=== PATIENT | male | born 1945 | race Caucasian/White ===

== ENCOUNTER 2017-03-22 06:27 | Day surgery (SDC) | payer OTHER ==
[2017-03-20 13:14] VITALS: BMI 23.6
[2017-03-22] MEDS ORDERED: LIDOCAINE HCL 0.5% EPINEPHRINE 1:200,000 50 ML VIAL IJ ONE ×4 (07:38→08:32)
[2017-03-22] MEDS ORDERED: LIDOCAINE HCL 1%, 10 MG/ML (20ML VIAL) ONE (07:38)
[2017-03-22] MEDS ORDERED: MINERAL OIL 25 ML OIL ONE (07:39)
[2017-03-22] MEDS ORDERED: BUPIVACAINE HCL/PF 0.5% (5MG/ML) 10 ML VIAL ONE (07:39)
[2017-03-22] MEDS ORDERED: BACITRACIN 15 GM TUBE TOPICAL OINTMENT ONE (07:39)
[2017-03-22] MEDS ORDERED: LIDOCAINE HCL/PF 2% SDV 5ML VIAL ONE (07:56)
[2017-03-22] MEDS ORDERED: PROPOFOL 20 ML ONE ×3 (07:57→10:07)
[2017-03-22] MEDS ORDERED: MIDAZOLAM HCL 2 MG/2 ML SINGLE DOSE VIAL ONE (07:57)
[2017-03-22] MEDS ORDERED: ceFAZolin SODIUM 1 GM VIAL IVPB ONE (08:17)
[2017-03-22] MEDS ORDERED: ONDANSETRON 4 MG/2 ML VIAL IVPUSH PRN (10:25)
[2017-03-22] MEDS ORDERED: oxyCODONE HCL 5 MG TABLET PO PRN (10:25)
[2017-03-22] MEDS ORDERED: ACETAMINOPHEN 325 MG TABLET (FP) PO PRN (10:25)
[2017-03-22] MEDS ORDERED: LACTATED RINGERS SOLUTION 1,000 ML IV SCH (10:30)
--- NOTE | 2017-03-22 10:50 | OP ---
Operative Note - Note: Operative Date: 03/22/17 Pre-Operative Diagnosis: Basal Cell Carcinomas of the Nasal Dorsum and Left Nasal Ala Operation: 1- Excision Large Basal Cell Carcinoma Nasal Dorsum and Closure with Full Thickness Skin Graft from Left Infra-Clavicular Region. 2- Excision Basal Cell Carcinoma Left Nasal Ala and Closure with Alar Rotation Flap. Post-Operative Diagnosis: Same as Pre-op Surgeon: Michael Baron Anesthesia: Fractional Specimens Removed: BAsal Cell Carcinoima Nasal Dorsum with Re-excision of Left LAteral edge after Frozen Section Report; Basal Cell Carcinoma Left Ala with Re- excision of Lateral Deep margin after Frozen Section Operative Report Dictated: Yes
[2017-03-22 11:09] VITALS: TEMP 97.5
--- NOTE | 2017-03-22 11:34 | OP ---
DATE OF OPERATION: 03/22/2017 PREOPERATIVE DIAGNOSIS: Basal cell carcinomas of the nasal dorsum and the left nasal ala. POSTOPERATIVE DIAGNOSIS: Basal cell carcinomas of the nasal dorsum and the left nasal ala. PROCEDURE PERFORMED: 1. Excision large basal cell carcinoma of the nasal dorsum and closure with full-thickness skin graft from left infraclavicular region. 2. Excision basal cell carcinoma of the left nasal ala and closure with alar rotation flap. SURGEON: Michael Dwyer MD ANESTHESIA: Fractional with local. DESCRIPTION OF PROCEDURE: The patient was on the operating table in supine position, and intravenous sedation was administered by the anesthesiologist. The surgical areas were then infiltrated with a solution of 0.5% lidocaine with 1:200,000 epinephrine. After waiting a sufficient time for the epinephrine to take effect, the nasal dorsum lesion was approached first. This lesion crossed the midline, but extended mostly laterally to the left. This lesion measured approximately 1.5 x 1.8 cm. The area was excised with a gross margin of approximately 1 mm circumferentially, and this was removed and sent for frozen section. A similar excision was performed for the left nasal alar lesion, which measured approximately 5 x 4 mm. Frozen section report required further excision on the left lateral edge of the nasal dorsal lesion, which was clear on frozen section, but very close, and further excision of the deep margin of the alar lesion laterally. These excisions were both performed and sent for permanent section. A skin graft was harvested from the left infraclavicular region after drawing a template of the nasal defect. This was an elliptical excision, which was closed in layered fashion with deep tissues of No. 3-0 Biosyn suture in interrupted buried fashion, and skin was closed with No.4-0 V-Loc 90 in a continuous intradermal fashion. The graft was then defatted, trimmed, and transferred to the recipient area on the dorsum of the nose, and was pie-crusted and then inset circumferentially. Four No. 4-0 nylon sutures were used in left long for the purpose of a tie-over bolster, and the remainder of the circumference was closed with 5-0 Vicryl suture in a simple interrupted fashion. The tie-over bolster was made using Xeroform gauze, tying these nylon sutures over the top in two different directions. The alar defect was now addressed, and an alar rotation flap was then created using the alar groove for a curvilinear incision down to the base of the nose. The flap and remaining area circumferential to the lesion were undermined, and the flap was rotated and inset. Inset was performed using No. 4-0 nylon suture in interrupted fashion. Flaps appeared viable at the conclusion of the case. Flaps were then dressed with the bacitracin and covered with surgical gauze. The patient was then taken from the operating room to the recovery room in satisfactory condition having tolerated the procedure well. MICHAEL DWYER M.D. [id number]
[2017-03-22 12:36] VITALS: BP 144/80; PULSE 76
--- NOTE | 2017-03-23 13:47 | PATH ---
Surgical Pathology Report Patient Name: HERNAN FU [facility]. Rec. #: [id number] /Age/Gender: 1945 (Age: 71) / M Account: [id number] Location: [facility] [place] SURGICAL Taken: 03/22/2017 Received: 03/22/2017 Reported: 03/23/2017 Physicians: Michael Baron M.D. Specimen(s) Received A: BASAL CELL CARCINOMA DORSUM B: BASAL CELL LEFT ALA C: NASAL DORSUM D: ALA DEEP LATERAL TISSUE Clinical History Basal cell carcinoma Intraoperative Consult Diagnosis A. Nasal dorsum, frozen section A1 and A2: Basal cell carcinoma, less than 0.1 mm to medial margin. B. Left nasal ala, frozen section B1 and B2: Basal cell carcinoma, focally extending to deep margin at lateral aspect. Final Diagnosis A. SKIN, NASAL DORSUM, EXCISION: BASAL CELL CARCINOMA. CARCINOMA IS EXTREMELY CLOSE (LESS THAN 0.1 MM) TO MEDIAL MARGIN. FINAL MARGINS OF EXCISION FREE OF CARCINOMA. SOLAR ELASTOSIS IS PRESENT. B. SKIN, LEFT NASAL ALA, EXCISION: BASAL CELL CARCINOMA. CARCINOMA FOCALLY EXTENDS TO DEEP MARGIN OF EXCISION AT LATERAL ASPECT. SOLAR ELASTOSIS IS PRESENT. C. SKIN, NASAL DORSUM LEFT LATERAL MARGIN, EXCISION: SKIN WITH SOLAR ELASTOSIS. NO CARCINOMA IDENTIFIED. D. ALA DEEP LATERAL TISSUE, EXCISION: BENIGN SKELETAL MUSCLE, ADIPOSE TISSUE, AND FIBROUS TISSUE. NO CARCINOMA IDENTIFIED. Electronically Signed Ankur Raymond M.D. Gross Description A. Received fresh for frozen section labeled "basal cell carcinoma dorsum" is a 1.9x1.6 x 0.4 cm portion of skin with pearly surface. Orienting sutures are placed. The superior margin is inked red. The lateral margin is inked blue. The inferior margin is inked green. The medial margin is inked black. Cross sections including the superior and inferior margins are frozen the frozen remainder is submitted in cassette A1. Sections through the lateral and medial margins are frozen the frozen remainder is submitted in cassette A2. All of the remaining tissue is submitted in cassette A3 for permanent section. B. Received fresh for frozen section labeled "basal cell left ala" is a 0.9 x 0.8 x 0.2 cm portion of skin with branching sutures in place. The superior margin is inked red. The lateral margin is inked blue. The superior margin is inked green. The medial margin is inked black. Cross sections from medial to lateral are frozen and a frozen remainder is submitted in cassette B1. Sections through the superior and inferior margins are frozen and a frozen remainder is submitted in cassette B2. The specimen is frozen in its entirety. C. Received fresh labeled "nasal dorsum left lateral margin" is a 1.3 cm long x 0.2 cm wide portion of pierce skin. After discussing this case with Dr. Baron, no frozen section is performed. Totally submitted in one cassette. D. Received in formalin labelled "ala deep lateral tissue" is a 0.2 cm greatest dimension piece of pierce tissue. Totally submitted in one cassette. [facility]/03/22/2017
== END 2017-03-22 12:37 | disposition home or self-care (01) ==
LOC: JASU-SURG 06:27
PROVIDERS: ATTEND Plastic Surgery
PROC: 0HB1XZX Excision of Face Skin, External Approach, Diagnostic (ICD-10-PCS; principal; 2017-03-22 08:00)
DX: C44.311 Basal cell carcinoma of skin of nose (principal)
CPT/HCPCS: 88305-TC; 88331-TC; 88332; 94760

== ENCOUNTER 2018-12-02 13:19 | Inpatient (IN) | payer OTHER ==
--- NOTE | 2018-12-02 13:46 | PDOC ---
History of Present Illness - General Chief Complaint: Shortness of Breath Stated Complaint: Shortness of Breath Time Seen by Provider: 12/02/18 13:46 History Source: Patient Exam Limitations: No Limitations - History of Present Illness Initial Comments: 12/02/18 14:16 Patient is a 72 year old male with history of COPD (on home oxygen 2L), hypertension, hepatitis C virus (not treated), basal cell carcinoma (s/p resection) presents with complaint of shortness of breath. He endorses that symptoms began three days ago with insidious onset. Patient admits fever ( measured at home to Tmax 100.5F), as well as rhinorrhea, and post- nasal drip. He admits cough productive with yellow- white mucus. Patient denies needing to use his inhaler or home oxygen with increased frequency. Denies abdominal pain, nausea, vomiting. Of note, patient endorses cramping in bilateral lower extremities ongoing for past few days. Patient ambulates well without cane or walker. PMH: COPD, hypertension, hepatitis C virus, basal cell carcinoma PSH: Basal cell carcinoma excision (2017) Family history: Notable cardiac history with MO in both mother and father Social: Patient endorses significant smoking history of 20-30 cigarettes/ day for 45 years. Quit [address] Goss for pulmonology. Endorses drug use (heroine, cocaine; has not used any drugs since 1982).Lives at home with . Past History - Travel Traveled outside of the country in the last 30 days: No - Past Medical History Allergies/Adverse Reactions: Allergies Allergy/AdvReac Type Severity Reaction Status Date / Time ether [Ether] Allergy Verified 12/02/18 13:49 Home Medications: Ambulatory Orders Albuterol Sulfate 0.5% [Ventolin 0.5%] 1 neb IH PRN 03/30/12 Methadone [Dolophine] 22 mg PO DAILY 03/30/12 Valsartan [Diovan] 40 mg PO DAILY 07/24/16 Arformoterol Tartrate [Brovana] 15 mcg IH BID 03/20/17 Cancer: (Basal Cell) COPD: Yes (emphysema; has had previous hospital admissions for COPD and pneumonia) HTN: Yes Liver Disease: Yes - Surgical History Other Surgical History: 12/02/18 15:02 Basal cell carcinoma excision - Family Disease History Family Disease History: Heart Disease: Father ( at 57 years old due to MO), Mother ( at 55 years old ) - Immunization History Immunization Up to Date: Yes - Suicide/Smoking/Psychosocial Hx Smoking Status: No Smoking History: Former smoker Years of Tobacco Use: 45 Have you smoked in the past 12 months: No Number of Cigarettes Smoked Daily: 20 If you are a former smoker, when did you quit?: 2006 Hx Alcohol Use: No Drug/Substance Use Hx: No (past) Substance Use Type: None, Cocaine, Heroin Hx Substance Use Treatment: Yes (on methadone) Review of Systems - Review of Systems Constitutional: Yes: Fever, Loss of Appetite, Malaise HEENTM: Yes: Nose Congestion, Other (rhinorrhea) Respiratory: Yes: Shortness of Breath, Productive cough. No: Hemoptysis Cardiac (ROS): No: Chest Pain, Lightheadedness, Palpitations ABD/GI: No: Diarrhea, Nausea, Rectal Bleeding, Tarry Stools : No: Burning, Dysuria, Frequency, Hematuria Neurological: No: Headache, Numbness, Weakness *Physical Exam - Physical Exam General Appearance: Yes: Appropriately Dressed. No: Apparent Distress HEENT: positive: EOMI, PRISCILLA. negative: Pharyngeal Erythema, Tonsillar Exudate Neck: positive: Supple. negative: Lymphadenopathy (L) Respiratory/Chest: positive: Lungs Clear, Normal Breath Sounds, Crackles. negative: Respiratory Distress, Wheezing Cardiovascular: positive: Regular Rhythm, Regular Rate, S1, S2. negative: Edema , Systolic Murmur Vascular Pulses: Dorsalis-Pedis (R): 2+, Doralis-Pedis (L): 2+ Gastrointestinal/Abdominal: positive: Normal Bowel Sounds, Soft. negative: Rebound, Tenderness Neurologic: positive: [employer] II-XII NML intact, Fully Oriented, Alert, Normal Mood/ Affect, Motor Strength 12/01 ED Treatment Course - LABORATORY CBC & Chemistry Diagram: 12/02/18 14:45 12/02/18 14:45 Medical Decision Making - Medical Decision Making 12/02/18 15:09 Patient presents with complaint of shortness of breath for past three days. Differential diagnosis includes viral/ bacterial URI, vs. COPD 12/02/18 15:11 Rapid Influenza A/B negative, Group A strep negative Chest radiograph does not reveal acute infiltrates concerning for pneumonia EKG shows sinus tachycardia at 102BPM, no significant change from prior study Solu-Medrol 125mg IV 12/02/18 15:44 WBC 15.7 Repeat oral temperature 102.7F. Patient fulfils SIRS criteria; sepsis secondary to URI Draw Lactic acid; 1.2 Draw blood cultures, urinalysis, urine cultures Acetaminophen 650mg PO Ceftriaxone 1 gram IV Azithromycin 500mg IV 1 liter NS bolus Patient endorses bilateral lower extremity cramping. Will order Duplex US bilateral lower extremities to rule out DVT. 12/02/18 17:29 Admit to medical surgical floor. *DC/Admit/Observation/Transfer Diagnosis at time of Disposition: COPD (chronic obstructive pulmonary disease) - Discharge Dispostion Decision to Admit order: Yes - Referrals - Patient Instructions - Post Discharge Activity
[2018-12-02] MEDS ORDERED: ALBUTEROL SO4 2.5/IPRATROPIUM 0.5 INH SOL 3 ML VIAL.NEB. NEB ONE ×2 (13:57→14:26)
[2018-12-02 15:05] LABS: BASO % 0.2 % (0-2.0); EOS % 0.1 % (0-4.5); HEMATOCRIT 36.4 % (35.4-49); HEMOGLOBIN 12.1 GM/dL (11.7-16.9); LYMPH % 36.6 % (8-40); MCHC 33.1 g/dl (32.0-35.9); MEAN CELL VOLUME 87.6 fl (80-96); MEAN PLT VOLUME 7.3 fl (7.5-11.1); MONO % 10.1 % (3.8-10.2); PLATELET COUNT 179 K/MM3 (134-434); RBC 4.16 M/mm3 (4.00-5.60); RDW 14.4 % (11.9-15.9); WHITE BLOOD COUNT 15.7 K/mm3 (4.0-10.0)
--- NOTE | 2018-12-02 15:08 | EKG ---
Test Reason : Blood Pressure : / mmHG Vent. Rate : 102 BPM Atrial Rate : 102 BPM P-R Int : 126 ms QRS Dur : 084 ms QT Int : 328 ms P-R-T Axes : 082 083 061 degrees QTc Int : 427 ms SINUS TACHYCARDIA OTHERWISE NORMAL ECG WHEN COMPARED WITH ECG OF 25-FEB-2015 21:42, NO SIGNIFICANT CHANGE WAS FOUND Confirmed by CHUY BOWEN MD ([id number]) on 12/02/2018 3:08:39 PM Referred By: Confirmed By:CHUY BOWEN MD
[2018-12-02] MEDS ORDERED: methylPREDNISolone NA SUCC 125 MG/2 ML VIAL IVPUSH ONE (15:14)
[2018-12-02 15:19] LABS: ALBUMIN 3.9 g/dl (3.4-5.0); ALK PHOS 67 U/L (45-117); ANION GAP 6 MMOL/L (8-16); BILIRUBIN,TOTAL 0.6 mg/dL (0.2-1); BLOOD UREA NITROGEN 17 mg/dL (7-18); CALCIUM 8.8 mg/dL (8.5-10.1); CHLORIDE 98 mmol/L (98-107); CO2 29 mmol/L (21-32); CREATININE 1.1 mg/dL (0.55-1.3); GLUCOSE,RANDOM 107 mg/dL (74-106); POTASSIUM 4.4 mmol/L (3.5-5.1); SGOT/AST 19 U/L (15-37); SGPT/ALT 18 U/L (13-61); SODIUM 133 mmol/L (136-145); TOT PROT 7.4 g/dl (6.4-8.2)
[2018-12-02] MEDS ORDERED: methylPREDNISolone NA SUCC 125 MG/2 ML VIAL ONE (15:50)
[2018-12-02] MEDS ORDERED: CEFTRIAXONE 1 GM in DEXTROSE 5%-WATER - 100 ML IVPB ONE (15:52)
[2018-12-02] MEDS ORDERED: AZITHROMYCIN IVPB 500 MG in DEXTROSE 5%-WATER - 250 ML IVPB ONE (15:52)
[2018-12-02] MEDS ORDERED: ACETAMINOPHEN 325 MG TABLET (FP) PO ONE (15:52)
[2018-12-02] MEDS ORDERED: SODIUM CHLORIDE 1,000 ML IV STA (15:52)
--- NOTE | 2018-12-02 16:07 | PDOC ---
Attending Attestation - Resident Resident Name: Clyde Overton - ED Attending Attestation I have performed the following: I have examined & evaluated the patient, The case was reviewed & discussed with the resident, I agree w/resident's findings & plan, Exceptions are as noted - Medical Decision Making 12/02/18 16:01 I Presents with fever and complained of postnasal drip 102.7 oral temp,tachycardia plan :BC,Ua,UC,tylenol,lactic acid
[2018-12-02 16:26] LABS: EPI CELLS 0.6 /HPF (0-5/HPF); PH,URINE 5.5 (5.0-8.0); URINE APPEARANCE CLEAR; URINE BACTERIA 0.3 /hpf (NEGATIVE); URINE BILIRUBIN NEGATIVE (NEGATIVE); URINE CASTS 3 /lpf (0-8); URINE COLOR YELLOW; URINE GLUCOSE (UA) NEGATIVE (NEGATIVE); URINE KETONE 1+ (NEGATIVE); URINE LEUK ESTERASE NEGATIVE (NEGATIVE); URINE NITRITE NEGATIVE (NEGATIVE); URINE PROTEIN 1+ (NEGATIVE); URINE RBC 1 /hpf (0-4); URINE UROBILINOGEN 0.2 mg/dL (0.2-1.0); URINE WBC 1 /hpf (0-5)
[2018-12-02] MEDS ORDERED: CEFTRIAXONE 1 GM/50 ML BAG ONE (17:10)
[2018-12-02] MEDS ORDERED: ACETAMINOPHEN 325 MG TABLET (FP) ONE (17:10)
[2018-12-02] MEDS ORDERED: AZITHROMYCIN IVPB 500 MG/250 ML BAG IVPB ONE (17:10)
[2018-12-02] MEDS ORDERED: DOCUSATE SODIUM 100 MG CAPSULE (FP) PO PRN (18:29)
[2018-12-02] MEDS ORDERED: ALBUTEROL SO4 2.5/IPRATROPIUM 0.5 INH SOL 3 ML VIAL.NEB. NEB PRN (18:35)
--- NOTE | 2018-12-02 19:30 | HP ---
Admitting History and Physical - Primary Care Physician PCP: Nevin Pope - Admission Chief Complaint: SOB History of Present Illness: 72 year old M with a past medical history of COPD, emphysema, hep B, Hep C and HTN who presents to the emergency department with complaints of shortness of breath and fatigue for 3days. Mr. Torres reports sinus congestion which started on sat 5/4 and progressed to malaise, fever, productive cough and SOB by Sunday morning. He decided to visit his PCP and was referred to ED after he was noted to have O2 sat 82% and T 101.0 in the office. Pt denies recent travel or sick contacts. Denies N/V/D/CP/Palpitations or diaphoresis. Pt was transported via EMS to [facility] from primary care office. In ED, pt has temp 101.6, BP 128/64, HR 98, RR 22, o2 sat 98%. Rapid Influenza A/B negative, Group A strep negative CXR no acute pathology. Labs: WBC 15.7, lactate 1.2. Blood and urine cultures sent He was treated with Acetaminophen 650mg, Ceftriaxone 1 gram IV, Azithromycin 500mg IV and 1 liter NS bolus. Decision made to admit to medsurg unit for continued management. 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 - Past Surgical History Additional Past Surgical History: basal cell carcinoma resection from bridge of nose 2015 - Smoking History Smoking history: Former smoker Have you smoked in the past 12 months: No Aproximately how many cigarettes per day: 20 (1PPD x 40years) If you are a former smoker, when did you quit?: 2006 - Alcohol/Substance Use Hx Alcohol Use: No History of Substance Use: reports: Cocaine, Heroin - Social History Usual Living Arrangement: Yes: Alone ADL: Independent History of Recent Travel: No Home Medications - Allergies Allergies/Adverse Reactions: Allergies Allergy/AdvReac Type Severity Reaction Status Date / Time ether [Ether] Allergy Verified 12/02/18 13:49 - Home Medications Home Medications: Ambulatory Orders Albuterol Sulfate 0.5% [Ventolin 0.5%] 1 neb IH PRN 03/30/12 Methadone [Dolophine] 22 mg PO DAILY 03/30/12 Valsartan [Diovan] 40 mg PO DAILY 07/24/16 Arformoterol Tartrate [Brovana] 15 mcg IH BID 03/20/17 Family Disease History - Family Disease History Family Disease History: Other: Father ( (57) [place]), Mother ( (55) [place]), Brother ( (64) [place]) Review of Systems - Review of Systems Constitutional: reports: Fever, Malaise Eyes: reports: No Symptoms HENT: reports: No Symptoms Neck: reports: No Symptoms Cardiovascular: reports: Shortness of Breath Respiratory: reports: SOB Gastrointestinal: reports: Abdominal Pain Genitourinary: reports: No Symptoms Breasts: reports: No Symptoms Reported Musculoskeletal: reports: No Symptoms Integumentary: reports: No Symptoms Neurological: reports: No Symptoms Endocrine: reports: No Symptoms Hematology/Lymphatic: reports: No Symptoms Psychiatric: reports: No Symptoms Physical Examination Vital Signs: Vital Signs Temperature 101.6 F H 12/02/18 16:45 Pulse Rate 98 H 12/02/18 16:45 Respiratory Rate 22 H 12/02/18 16:45 Blood Pressure 128/64 12/02/18 16:45 O2 Sat by Pulse Oximetry (%) 98 12/02/18 16:45 Constitutional: Yes: No Distress, Thin Eyes: Yes: Conjunctiva Clear, PERRL (3mm b/l), Other (edentulous) HENT: Yes: Atraumatic, Normocephalic Neck: Yes: Supple, Trachea Midline Cardiovascular: Yes: Regular Rate and Rhythm Respiratory: Yes: Regular, Diminished (right middle and lower lobes) Gastrointestinal: Yes: Normal Bowel Sounds, Soft ...Rectal Exam: Yes: Deferred Musculoskeletal: Yes: WNL Extremities: Yes: WNL Edema: No Peripheral Pulses WNL: Yes Peripheral Pulses: Left Radial: 2+, Right Radial: 2+, Left Doralis Pedis: 2+, Right Dorsalis Pedis: 2+ Integumentary: Yes: Other (RUE excoriation) Neurological: Yes: Alert, Oriented ...Motor Strength: WNL Psychiatric: Yes: Alert, Oriented Labs: CBC, BMP 12/02/18 14:45 12/02/18 14:45 Imaging - Results Chest X-ray: Report Reviewed (CXR 12/02/2018 Chest: Shortness of breath Single AP view of the chest reveals clear lungs, normal heart, sclerotic knob and prominent right hilum. The angles are sharp. The bones and soft tissues are intact. An acute process is not seen. Reported By: Bogdan Rivera MD 12/02/18 191) Ultrasound: Report Reviewed (bilateral Lower ext doppler 12/02/2018 Impression: There is no evidence of deep venous thromboses in both lower extremities. Reported By: Ayaka Flores MD 12/02/18 806) Problem List - Problems (1) Methadone maintenance therapy patient Assessment/Plan: methadone 20mg daily Code(s): F11.20 - OPIOID DEPENDENCE, UNCOMPLICATED (2) Prophylactic measure Assessment/Plan: bowel regimen with senna and colace Heparin SC TID OOB to chair as tolerated IC PPI daily Code(s): Z29.9 - ENCOUNTER FOR PROPHYLACTIC MEASURES, UNSPECIFIED (3) COPD (chronic obstructive pulmonary disease) Assessment/Plan: Brovana BID Duoneb q6h PRN Solu-medrol 60mg BID O2 2L PRN Pulm consulted Code(s): J44.9 - CHRONIC OBSTRUCTIVE PULMONARY DISEASE, UNSPECIFIED (4) HTN (hypertension) Assessment/Plan: Diovan 40mg daily low salt diet Code(s): I10 - ESSENTIAL (PRIMARY) HYPERTENSION (5) Sinusitis, acute Assessment/Plan: continue with ceftriaxone 1g daily continue Azith 250mg daily x 4days Code(s): J01.90 - ACUTE SINUSITIS, UNSPECIFIED Assessment/Plan DISPO: Home when stable Code Status: Full Visit type - Emergency Visit Emergency Visit: Yes ED Registration Date: 12/02/18 Care time: The patient presented to the Emergency Department on the above date and was hospitalized for further evaluation of their emergent condition. - New Patient This patient is new to me today: Yes Date on this admission: 12/02/18 - Critical Care Critical Care patient: No
[2018-12-02 20:50] VITALS: BMI 21.4
[2018-12-02] MEDS: ARFORMOTEROL TARTRATE 15 MCG/2 ML VIAL NEB SCH (21:33)
[2018-12-02] MEDS ORDERED: SENNOSIDES 8.6MG TABLET (FP) PO PRN (22:00)
[2018-12-03 07:49] LABS: BASO % 0.2 % (0-2.0); HEMATOCRIT 33.4 % (35.4-49); HEMOGLOBIN 11.3 GM/dL (11.7-16.9); LYMPH % 46.4 % (8-40); MCH 29.2 pg (25.7-33.7); MCHC 33.7 g/dl (32.0-35.9); MEAN CELL VOLUME 86.5 fl (80-96); MEAN PLT VOLUME 7.7 fl (7.5-11.1); MONO % 6.1 % (3.8-10.2); NEUT % 47.3 % (42.8-82.8); PLATELET COUNT 164 K/MM3 (134-434); RBC 3.86 M/mm3 (4.00-5.60); RDW 13.8 % (11.9-15.9); WHITE BLOOD COUNT 12.3 K/mm3 (4.0-10.0)
[2018-12-03] MEDS ORDERED: DEXTROSE 5%-WATER - 50 ML IVPB ONE ×2 (08:51→09:54)
[2018-12-03] MEDS ORDERED: cefTRIAXone SODIUM 1 GM VIAL ONE ×2 (08:51→09:53)
[2018-12-03 08:52] LABS: ALBUMIN 3.5 g/dl (3.4-5.0); ALK PHOS 61 U/L (45-117); ANION GAP 8 MMOL/L (8-16); BILIRUBIN,TOTAL 0.5 mg/dL (0.2-1); BLOOD UREA NITROGEN 24 mg/dL (7-18); CALCIUM 8.9 mg/dL (8.5-10.1); CHLORIDE 99 mmol/L (98-107); CO2 29 mmol/L (21-32); CREATININE 1.1 mg/dL (0.55-1.3); GLUCOSE,RANDOM 136 mg/dL (74-106); MAGNESIUM 2.2 mg/dL (1.8-2.4); N-TERMINAL BNP 853.2 pg/ml (5-125); PHOSPHOROUS 4.3 mg/dL (2.5-4.9); POTASSIUM 4.8 mmol/L (3.5-5.1); SGOT/AST 16 U/L (15-37); SGPT/ALT 16 U/L (13-61); SODIUM 136 mmol/L (136-145); TOT PROT 7.1 g/dl (6.4-8.2)
[2018-12-03] MEDS: CEFTRIAXONE 1 GM in DEXTROSE 5%-WATER - 50 ML IVPB SCH ×2 (08:56→10:26)
[2018-12-03] MEDS ORDERED: methylPREDNISolone NA SUCC 40 MG/1 ML VIAL IVPUSH SCH (10:00)
--- NOTE | 2018-12-03 10:27 | CON.PULM ---
Consult Consult Specialty:: PULMONARY Referred by:: Dr Perdue Reason for Consultation:: COPD - History of Present Illness Chief Complaint: shortness of breath History of Present Illness: 72yo male with h/o HTN, COPD/emphysema, Hep C, chronic hypoxic respiratory failure on home O2 who was admitted with worsening shortness of breath x 3 days. No chest pain or palpitations. +cough with yellow sputum a few days ago but now nonproductive. No significant wheezing. Febrile to 101 in the ER and was noted to be hypoxic to 82%. Maintained at home on just Brovana, stopped Spiriva on own due to urinary retention. Former long time smoker, quit when he was 60. - History Source History Provided By: Patient, Medical Record Limitations to Obtaining History: No Limitations - Past Medical History Cardio/Vascular: Yes: HTN Pulmonary: Yes: COPD Hepatobiliary: Yes: Hepatitis B, Hepatitis C - Alcohol/Substance Use Hx Alcohol Use: No History of Substance Use: reports: Cocaine, Heroin - Smoking History Smoking history: Former smoker Have you smoked in the past 12 months: No Aproximately how many cigarettes per day: 20 (1PPD x 40years) If you are a former smoker, when did you quit?: 2006 - Social History ADL: Independent History of Recent Travel: No Home Medications - Allergies Allergies/Adverse Reactions: Allergies Allergy/AdvReac Type Severity Reaction Status Date / Time ether [Ether] Allergy Verified 12/02/18 13:49 - Home Medications Home Medications: Ambulatory Orders Albuterol Sulfate 0.5% [Ventolin 0.5%] 1 neb IH PRN 03/30/12 Methadone [Dolophine] 22 mg PO DAILY 03/30/12 Valsartan [Diovan] 40 mg PO DAILY 07/24/16 Arformoterol Tartrate [Brovana] 15 mcg IH BID 03/20/17 Family Disease History - Family Disease History Family Disease History: Other: Father ( (57) [place]), Mother ( (55) [place]), Brother ( (64) [place]) Review of Systems - Review of Systems Constitutional: reports: Fever, Loss of Appetite, Weakness. denies: Chills Eyes: denies: Recent Change in Vision HENT: reports: Nasal Congestion. denies: Throat Pain Neck: denies: Stiffness, Tenderness Cardiovascular: reports: Shortness of Breath. denies: Chest Pain, Edema Respiratory: reports: Cough, Exercise Intolerance, SOB on Exertion. denies: Hemoptysis, Wheezing Gastrointestinal: denies: Abdominal Pain, Nausea, Vomiting Neurological: denies: Dizziness, Headache Endocrine: denies: Unexplained Weight Loss Physical Exam Vital Sings: Vital Signs Temperature 97.5 F L 12/03/18 07:59 Pulse Rate 72 12/03/18 07:59 Respiratory Rate 20 12/03/18 07:59 Blood Pressure 136/69 12/03/18 07:59 O2 Sat by Pulse Oximetry (%) 98 12/02/18 16:45 Constitutional: Yes: Anxious Eyes: Yes: Conjunctiva Clear, EOM Intact HENT: Yes: Atraumatic, Normocephalic Neck: Yes: Supple, Trachea Midline Cardiovascular: Yes: Regular Rate and Rhythm Respiratory: Yes: Diminished (distant breath sounds), Poor Air Entry ...Clubbing: No Gastrointestinal: Yes: Normal Bowel Sounds, Soft. No: Tenderness Edema: No Neurological: Yes: Alert, Oriented Labs: CBC, BMP 12/03/18 06:30 12/03/18 06:30 Imaging - Results Chest X-ray: Report Reviewed, Image Reviewed (no infiltrates) Problem List - Problems (1) COPD with acute exacerbation Code(s): J44.1 - CHRONIC OBSTRUCTIVE PULMONARY DISEASE W (ACUTE) EXACERBATION (2) Acute bronchitis Code(s): J20.9 - ACUTE BRONCHITIS, UNSPECIFIED Assessment/Plan Acute on Chronic Hypoxic Respiratory Failure Acute COPD Exacerbation Acute Bronchitis Emphysema HTN Hep C Methadone Maintenance - pt hesitant to start steroids but agreeable to medrol 40mg daily - inhaled bronchodilators with brovana and albuterol as needed, declining LAMA at this time - continue antibiotics - f/u cultures - O2 to keep SpO2 >90% - DVT prophylaxis Thank you for this consult Ankur Noriega MD
[2018-12-03] MEDS: VALSARTAN 40 MG TABLET (FP) PO SCH (10:29)
[2018-12-03] MEDS: PANTOPRAZOLE 40 MG TABLET (FP) PO SCH (10:29)
[2018-12-03] MEDS: ARFORMOTEROL TARTRATE 15 MCG/2 ML VIAL NEB SCH ×2 (10:30→21:30)
[2018-12-03] MEDS: AZITHROMYCIN IVPB 250 MG in DEXTROSE 5%-WATER - 250 ML IVPB SCH (10:30)
[2018-12-03] MEDS: METHADONE HCL 10 MG TABLET PO SCH (10:30)
[2018-12-03] MEDS: methylPREDNISolone NA SUCC 40 MG/1 ML VIAL IVPUSH SCH (10:49)
--- NOTE | 2018-12-03 14:35 | PN ---
Progress Note, Physician Chief Complaint: COPD exacerbation History of Present Illness: Previous notes and events reviewed awake and alert NAD sts breathing better after getting IV medrol, denies cough - Current Medication List Current Medications: Active Medications Albuterol/Ipratropium (Duoneb -) 1 amp NEB Q6H PRN PRN Reason: SHORTNESS OF BREATH Arformoterol Tartrate (Brovana (Restricted To Pulmonology/Resp) -) 1 amp NEB BID [facility] Last Admin: 12/03/18 10:30 Dose: 1 amp Docusate Sodium (Colace -) 100 mg PO BID PRN PRN Reason: CONSTIPATION Heparin Sodium (Porcine) (Heparin -) 5,000 unit SQ TID [facility] Azithromycin 250 mg/ Dextrose 250 mls @ 250 mls/hr IVPB DAILY [facility] Stop: 12/06/18 10:00 Last Admin: 12/03/18 10:30 Dose: 250 mls/hr Ceftriaxone Sodium 1 gm/ (Dextrose) 50 mls @ 100 mls/hr IVPB DAILY [facility]; Protocol Last Admin: 12/03/18 10:26 Dose: Not Given Methadone HCl (Dolophine -) 20 mg PO DAILY [facility] Last Admin: 12/03/18 10:30 Dose: 20 mg Methylprednisolone Sodium Succinate (Solu-Medrol -) 40 mg IVPUSH DAILY [facility] Last Admin: 12/03/18 10:49 Dose: 40 mg Pantoprazole Sodium (Protonix -) 40 mg PO DAILY [facility] Last Admin: 12/03/18 10:29 Dose: 40 mg Senna (Senna -) 2 tab PO HS PRN PRN Reason: CONSTIPATION Valsartan (Diovan -) 40 mg PO DAILY [facility] Last Admin: 12/03/18 10:29 Dose: 40 mg - Objective Vital Signs: Vital Signs Temperature 97.5 F L 12/03/18 07:59 Pulse Rate 72 12/03/18 07:59 Respiratory Rate 20 12/03/18 07:59 Blood Pressure 136/69 12/03/18 07:59 O2 Sat by Pulse Oximetry (%) 98 12/02/18 16:45 Constitutional: Yes: No Distress, Calm Eyes: Yes: Conjunctiva Clear HENT: Yes: Atraumatic Cardiovascular: Yes: Regular Rate and Rhythm Respiratory: Yes: Regular, Diminished, On Nasal O2 Gastrointestinal: Yes: Normal Bowel Sounds, Soft Musculoskeletal: Yes: Muscle Weakness Extremities: Yes: WNL Edema: No Neurological: Yes: Alert, Oriented Psychiatric: Yes: Alert, Oriented Labs: CBC, BMP 12/03/18 06:30 12/03/18 06:30 Microbiology 12/02/18 15:09 Throat Throat Culture - Final NO BETA HEMOLYTIC STREPTOCOCCI ISOLATED Problem List - Problems (1) Acute bronchitis Assessment/Plan: -Pulm on board -Azithromycin + Ceftriaxone IV -bronchodilators -Brovana -IV medrol -O2 via NC -keep SpO2 >90% -pending BC -CXR shows no acute pathology Code(s): J20.9 - ACUTE BRONCHITIS, UNSPECIFIED (2) COPD with acute exacerbation Assessment/Plan: -Pulm on board -Azithromycin + Ceftriaxone IV -bronchodilators -Brovana -IV medrol -O2 via NC -keep SpO2 >90% -pending BC -CXR shows no acute pathology Code(s): J44.1 - CHRONIC OBSTRUCTIVE PULMONARY DISEASE W (ACUTE) EXACERBATION (3) HTN (hypertension) Assessment/Plan: -Diovan -low Na diet Code(s): I10 - ESSENTIAL (PRIMARY) HYPERTENSION (4) Methadone maintenance therapy patient Assessment/Plan: -Methadone 20mg daily Code(s): F11.20 - OPIOID DEPENDENCE, UNCOMPLICATED Assessment/Plan see problem list dvt ppx
[2018-12-03] MEDS: HEPARIN NA (PORCINE) 5,000 UNITS/ML 1ML VIAL SQ SCH (22:02)
[2018-12-04] MEDS: HEPARIN NA (PORCINE) 5,000 UNITS/ML 1ML VIAL SQ SCH ×3 (06:15→22:06)
[2018-12-04 08:34] LABS: HEMATOCRIT 35.3 % (35.4-49); HEMOGLOBIN 11.8 GM/dL (11.7-16.9); MCH 28.9 pg (25.7-33.7); MCHC 33.5 g/dl (32.0-35.9); MEAN CELL VOLUME 86.3 fl (80-96); MEAN PLT VOLUME 7.9 fl (7.5-11.1); PLATELET COUNT 250 K/MM3 (134-434); RBC 4.09 M/mm3 (4.00-5.60); RDW 14.7 % (11.9-15.9)
[2018-12-04] MEDS ORDERED: cefTRIAXone SODIUM 1 GM VIAL ONE (08:57)
[2018-12-04] MEDS ORDERED: DEXTROSE 5%-WATER - 50 ML IVPB ONE (08:57)
[2018-12-04 09:08] LABS: ALBUMIN 3.7 g/dl (3.4-5.0); ALK PHOS 57 U/L (45-117); ANION GAP 5 MMOL/L (8-16); BILIRUBIN,TOTAL 0.5 mg/dL (0.2-1); BLOOD UREA NITROGEN 27 mg/dL (7-18); CALCIUM 8.8 mg/dL (8.5-10.1); CHLORIDE 101 mmol/L (98-107); CO2 31 mmol/L (21-32); CREATININE 1.1 mg/dL (0.55-1.3); GLUCOSE,RANDOM 89 mg/dL (74-106); POTASSIUM 3.9 mmol/L (3.5-5.1); SGOT/AST 17 U/L (15-37); SGPT/ALT 18 U/L (13-61); SODIUM 137 mmol/L (136-145); TOT PROT 7.2 g/dl (6.4-8.2)
[2018-12-04] MEDS: METHADONE HCL 10 MG TABLET PO SCH (09:24)
[2018-12-04] MEDS: PANTOPRAZOLE 40 MG TABLET (FP) PO SCH (09:24)
[2018-12-04] MEDS: VALSARTAN 40 MG TABLET (FP) PO SCH (09:24)
[2018-12-04] MEDS: CEFTRIAXONE 1 GM in DEXTROSE 5%-WATER - 50 ML IVPB SCH (09:25)
[2018-12-04] MEDS: methylPREDNISolone NA SUCC 40 MG/1 ML VIAL IVPUSH SCH (09:26)
[2018-12-04] MEDS: AZITHROMYCIN IVPB 250 MG in DEXTROSE 5%-WATER - 250 ML IVPB SCH (10:09)
[2018-12-04] MEDS: ARFORMOTEROL TARTRATE 15 MCG/2 ML VIAL NEB SCH ×2 (10:30→21:30)
--- NOTE | 2018-12-04 13:49 | PN ---
Progress Note (short form) - Note Progress Note: PULMONARY States breathing slightly better today. Occasional productive cough. No fevers. Vital Signs Period Temp Pulse Resp BP Sys/Guardado Pulse Ox Last 24 Hr 97.4 F-98.1 F 52-79 20-20 102-135/48-77 97 Gen: NAD at rest Heart: RRR Lung: decreased air movement, no wheezes Abd: soft, nontender Ext: no edema CBC, BMP 12/04/18 07:18 12/04/18 07:18 Active Medications Albuterol/Ipratropium (Duoneb -) 1 amp NEB Q6H PRN PRN Reason: SHORTNESS OF BREATH Arformoterol Tartrate (Brovana (Restricted To Pulmonology/Resp) -) 1 amp NEB BID [facility] Last Admin: 12/04/18 10:30 Dose: 1 amp Docusate Sodium (Colace -) 100 mg PO BID PRN PRN Reason: CONSTIPATION Heparin Sodium (Porcine) (Heparin -) 5,000 unit SQ TID [facility] Last Admin: 12/04/18 13:34 Dose: Not Given Azithromycin 250 mg/ Dextrose 250 mls @ 250 mls/hr IVPB DAILY [facility] Stop: 12/06/18 10:00 Last Admin: 12/04/18 10:09 Dose: 250 mls/hr Ceftriaxone Sodium 1 gm/ (Dextrose) 50 mls @ 100 mls/hr IVPB DAILY [facility]; Protocol Last Admin: 12/04/18 09:25 Dose: 100 mls/hr Methadone HCl (Dolophine -) 20 mg PO DAILY [facility] Last Admin: 12/04/18 09:24 Dose: 20 mg Methylprednisolone Sodium Succinate (Solu-Medrol -) 40 mg IVPUSH DAILY [facility] Last Admin: 12/04/18 09:26 Dose: 40 mg Pantoprazole Sodium (Protonix -) 40 mg PO DAILY [facility] Last Admin: 12/04/18 09:24 Dose: 40 mg Senna (Senna -) 2 tab PO HS PRN PRN Reason: CONSTIPATION Valsartan (Diovan -) 40 mg PO DAILY [facility] Last Admin: 12/04/18 09:24 Dose: 40 mg A/P Acute on Chronic Hypoxic Respiratory Failure Acute COPD Exacerbation Acute Bronchitis Emphysema HTN Hep C Methadone Maintenance - continue medrol 40mg daily - inhaled bronchodilators with brovana and albuterol as needed, declining LAMA at this time - continue antibiotics - f/u cultures - O2 to keep SpO2 >90% - DVT prophylaxis Problem List - Problems (1) COPD with acute exacerbation Code(s): J44.1 - CHRONIC OBSTRUCTIVE PULMONARY DISEASE W (ACUTE) EXACERBATION (2) Acute bronchitis Code(s): J20.9 - ACUTE BRONCHITIS, UNSPECIFIED
--- NOTE | 2018-12-04 14:19 | PN ---
Progress Note, Physician Chief Complaint: COPD exacerbation History of Present Illness: Previous notes and events reviewed awake and alert NAD sts breathing is improving - Current Medication List Current Medications: Active Medications Albuterol/Ipratropium (Duoneb -) 1 amp NEB Q6H PRN PRN Reason: SHORTNESS OF BREATH Arformoterol Tartrate (Brovana (Restricted To Pulmonology/Resp) -) 1 amp NEB BID [facility] Last Admin: 12/04/18 10:30 Dose: 1 amp Docusate Sodium (Colace -) 100 mg PO BID PRN PRN Reason: CONSTIPATION Heparin Sodium (Porcine) (Heparin -) 5,000 unit SQ TID [facility] Last Admin: 12/04/18 13:34 Dose: Not Given Azithromycin 250 mg/ Dextrose 250 mls @ 250 mls/hr IVPB DAILY [facility] Stop: 12/06/18 10:00 Last Admin: 12/04/18 10:09 Dose: 250 mls/hr Ceftriaxone Sodium 1 gm/ (Dextrose) 50 mls @ 100 mls/hr IVPB DAILY [facility]; Protocol Last Admin: 12/04/18 09:25 Dose: 100 mls/hr Methadone HCl (Dolophine -) 20 mg PO DAILY [facility] Last Admin: 12/04/18 09:24 Dose: 20 mg Methylprednisolone Sodium Succinate (Solu-Medrol -) 40 mg IVPUSH DAILY [facility] Last Admin: 12/04/18 09:26 Dose: 40 mg Pantoprazole Sodium (Protonix -) 40 mg PO DAILY [facility] Last Admin: 12/04/18 09:24 Dose: 40 mg Senna (Senna -) 2 tab PO HS PRN PRN Reason: CONSTIPATION Valsartan (Diovan -) 40 mg PO DAILY [facility] Last Admin: 12/04/18 09:24 Dose: 40 mg - Objective Vital Signs: Vital Signs Temperature 98 F 12/04/18 10:00 Pulse Rate 79 12/04/18 10:00 Respiratory Rate 20 12/04/18 10:00 Blood Pressure 114/48 L 12/04/18 10:00 O2 Sat by Pulse Oximetry (%) 97 12/04/18 09:00 Constitutional: Yes: No Distress, Calm Eyes: Yes: Conjunctiva Clear HENT: Yes: Atraumatic Cardiovascular: Yes: Regular Rate and Rhythm Respiratory: Yes: Regular, Diminished, On Nasal O2 Gastrointestinal: Yes: Normal Bowel Sounds, Soft Musculoskeletal: Yes: WNL Extremities: Yes: WNL Edema: No Neurological: Yes: Alert, Oriented Psychiatric: Yes: Alert, Oriented Labs: CBC, BMP 12/04/18 07:18 12/04/18 07:18 Microbiology 12/02/18 15:55 Urine - Urine Clean Catch Urine Culture - Final NO GROWTH OBTAINED 12/02/18 15:52 Blood - Peripheral Venous Blood Culture - Preliminary NO GROWTH OBTAINED AFTER 24 HOURS, INCUBATION TO CONTINUE FOR 4 DAYS. 12/02/18 15:50 Blood - Peripheral Venous Blood Culture - Preliminary NO GROWTH OBTAINED AFTER 24 HOURS, INCUBATION TO CONTINUE FOR 4 DAYS. 12/02/18 15:09 Throat Throat Culture - Final NO BETA HEMOLYTIC STREPTOCOCCI ISOLATED Problem List - Problems (1) Acute bronchitis Assessment/Plan: -Pulm on board -Azithromycin + Ceftriaxone IV -bronchodilators -Brovana -IV medrol -O2 via NC -keep SpO2 >90% -pending BC -CXR shows no acute pathology Code(s): J20.9 - ACUTE BRONCHITIS, UNSPECIFIED (2) COPD with acute exacerbation Assessment/Plan: -Pulm on board -Azithromycin + Ceftriaxone IV -bronchodilators -Brovana -IV medrol -O2 via NC -keep SpO2 >90% -pending BC -CXR shows no acute pathology Code(s): J44.1 - CHRONIC OBSTRUCTIVE PULMONARY DISEASE W (ACUTE) EXACERBATION (3) HTN (hypertension) Assessment/Plan: -Diovan -low Na diet Code(s): I10 - ESSENTIAL (PRIMARY) HYPERTENSION (4) Methadone maintenance therapy patient Assessment/Plan: -Methadone 20mg daily Code(s): F11.20 - OPIOID DEPENDENCE, UNCOMPLICATED (5) Leukocytosis Assessment/Plan: -WBC 17.0 -2/2 IV steroids Code(s): D72.829 - ELEVATED WHITE BLOOD CELL COUNT, UNSPECIFIED Assessment/Plan see problem list dvt ppx
[2018-12-05] MEDS: HEPARIN NA (PORCINE) 5,000 UNITS/ML 1ML VIAL SQ SCH ×3 (05:56→21:16)
[2018-12-05 07:38] LABS: HEMATOCRIT 32.5 % (35.4-49); MCH 29.3 pg (25.7-33.7); MEAN CELL VOLUME 86.1 fl (80-96); MEAN PLT VOLUME 7.5 fl (7.5-11.1); PLATELET COUNT 241 K/MM3 (134-434); RBC 3.77 M/mm3 (4.00-5.60); WHITE BLOOD COUNT 10.5 K/mm3 (4.0-10.0)
[2018-12-05 07:55] LABS: ALBUMIN 3.2 g/dl (3.4-5.0); BILIRUBIN,TOTAL 0.2 mg/dL (0.2-1); CALCIUM 8.3 mg/dL (8.5-10.1); CREATININE 1.2 mg/dL (0.55-1.3); POTASSIUM 4.4 mmol/L (3.5-5.1); TOT PROT 6.4 g/dl (6.4-8.2)
[2018-12-05] MEDS ORDERED: DEXTROSE 5%-WATER - 50 ML IVPB ONE (09:50)
[2018-12-05] MEDS ORDERED: cefTRIAXone SODIUM 1 GM VIAL ONE (09:50)
[2018-12-05] MEDS: VALSARTAN 40 MG TABLET (FP) PO SCH (09:56)
[2018-12-05] MEDS: CEFTRIAXONE 1 GM in DEXTROSE 5%-WATER - 50 ML IVPB SCH (09:57)
[2018-12-05] MEDS: PANTOPRAZOLE 40 MG TABLET (FP) PO SCH (09:57)
[2018-12-05] MEDS: METHADONE HCL 10 MG TABLET PO SCH (09:57)
[2018-12-05] MEDS: methylPREDNISolone NA SUCC 40 MG/1 ML VIAL IVPUSH SCH (09:58)
[2018-12-05] MEDS: AZITHROMYCIN IVPB 250 MG in DEXTROSE 5%-WATER - 250 ML IVPB SCH (09:59)
[2018-12-05] MEDS: ARFORMOTEROL TARTRATE 15 MCG/2 ML VIAL NEB SCH ×2 (10:06→21:37)
--- NOTE | 2018-12-05 13:12 | PN ---
Progress Note, Physician Chief Complaint: COPD exacerbation History of Present Illness: Previous notes and events reviewed awake and alert NAD sts breathing is improving, productive cough with green phlegm complain of diarrhea - Current Medication List Current Medications: Active Medications Albuterol/Ipratropium (Duoneb -) 1 amp NEB Q6H PRN PRN Reason: SHORTNESS OF BREATH Arformoterol Tartrate (Brovana (Restricted To Pulmonology/Resp) -) 1 amp NEB BID [facility] Last Admin: 12/05/18 10:06 Dose: 1 amp Docusate Sodium (Colace -) 100 mg PO BID PRN PRN Reason: CONSTIPATION Heparin Sodium (Porcine) (Heparin -) 5,000 unit SQ TID [facility] Last Admin: 12/05/18 05:56 Dose: Not Given Azithromycin 250 mg/ Dextrose 250 mls @ 250 mls/hr IVPB DAILY [facility] Stop: 12/06/18 10:00 Last Admin: 12/05/18 09:59 Dose: 250 mls/hr Ceftriaxone Sodium 1 gm/ (Dextrose) 50 mls @ 100 mls/hr IVPB DAILY [facility]; Protocol Last Admin: 12/05/18 09:57 Dose: 100 mls/hr Methadone HCl (Dolophine -) 20 mg PO DAILY [facility] Last Admin: 12/05/18 09:57 Dose: 20 mg Methylprednisolone Sodium Succinate (Solu-Medrol -) 40 mg IVPUSH DAILY [facility] Last Admin: 12/05/18 09:58 Dose: 40 mg Pantoprazole Sodium (Protonix -) 40 mg PO DAILY [facility] Last Admin: 12/05/18 09:57 Dose: 40 mg Senna (Senna -) 2 tab PO HS PRN PRN Reason: CONSTIPATION Valsartan (Diovan -) 40 mg PO DAILY [facility] Last Admin: 12/05/18 09:56 Dose: 40 mg - Objective Vital Signs: Vital Signs Temperature 98 F 12/05/18 11:00 Pulse Rate 88 12/05/18 11:00 Respiratory Rate 20 12/05/18 11:00 Blood Pressure 139/69 12/05/18 11:00 O2 Sat by Pulse Oximetry (%) 94 L 12/05/18 10:00 Constitutional: Yes: No Distress, Calm Eyes: Yes: Conjunctiva Clear HENT: Yes: Atraumatic Cardiovascular: Yes: Regular Rate and Rhythm Respiratory: Yes: Regular, Diminished Gastrointestinal: Yes: Normal Bowel Sounds, Soft Musculoskeletal: Yes: WNL Extremities: Yes: WNL Edema: No Neurological: Yes: Alert, Oriented Psychiatric: Yes: Alert, Oriented Labs: CBC, BMP 12/05/18 06:40 12/05/18 06:40 Problem List - Problems (1) Acute bronchitis Assessment/Plan: -Pulm on board -Azithromycin + Ceftriaxone IV -bronchodilators -Brovana -IV medrol -O2 via NC -keep SpO2 >90% -pending BC -CXR shows no acute pathology Code(s): J20.9 - ACUTE BRONCHITIS, UNSPECIFIED (2) COPD with acute exacerbation Assessment/Plan: -Pulm on board -Azithromycin + Ceftriaxone IV -bronchodilators -Brovana -IV medrol -O2 via NC -keep SpO2 >90% -pending BC -CXR shows no acute pathology Code(s): J44.1 - CHRONIC OBSTRUCTIVE PULMONARY DISEASE W (ACUTE) EXACERBATION (3) HTN (hypertension) Assessment/Plan: -Diovan -low Na diet Code(s): I10 - ESSENTIAL (PRIMARY) HYPERTENSION (4) Methadone maintenance therapy patient Assessment/Plan: -Methadone 20mg daily Code(s): F11.20 - OPIOID DEPENDENCE, UNCOMPLICATED (5) Leukocytosis Assessment/Plan: -WBC 10.5 -2/2 IV steroids Code(s): D72.829 - ELEVATED WHITE BLOOD CELL COUNT, UNSPECIFIED Assessment/Plan see problem list dvt ppx
--- NOTE | 2018-12-05 13:58 | PN ---
Progress Note (short form) - Note Progress Note: PULMONARY Breathing slowly improving. Occasional productive cough. No fevers. Ambulated without oxygen yesterday. c/o diarrhea. Vital Signs Period Temp Pulse Resp BP Sys/Guardado Pulse Ox Last 24 Hr 97.3 F-98.9 F 58-88 20-80 121-139/69-78 94-97 Gen: NAD at rest Heart: RRR Lung: decreased air movement, no wheezes Abd: soft, nontender Ext: no edema CBC, BMP 12/05/18 06:40 12/05/18 06:40 Active Medications Albuterol/Ipratropium (Duoneb -) 1 amp NEB Q6H PRN PRN Reason: SHORTNESS OF BREATH Arformoterol Tartrate (Brovana (Restricted To Pulmonology/Resp) -) 1 amp NEB BID [facility] Last Admin: 12/05/18 10:06 Dose: 1 amp Docusate Sodium (Colace -) 100 mg PO BID PRN PRN Reason: CONSTIPATION Heparin Sodium (Porcine) (Heparin -) 5,000 unit SQ TID [facility] Last Admin: 12/05/18 05:56 Dose: Not Given Azithromycin 250 mg/ Dextrose 250 mls @ 250 mls/hr IVPB DAILY [facility] Stop: 12/06/18 10:00 Last Admin: 12/05/18 09:59 Dose: 250 mls/hr Ceftriaxone Sodium 1 gm/ (Dextrose) 50 mls @ 100 mls/hr IVPB DAILY [facility]; Protocol Last Admin: 12/05/18 09:57 Dose: 100 mls/hr Lactobacillus Acidophilus (Bacid -) 1 tab PO DAILY [facility] Methadone HCl (Dolophine -) 20 mg PO DAILY [facility] Last Admin: 12/05/18 09:57 Dose: 20 mg Methylprednisolone Sodium Succinate (Solu-Medrol -) 40 mg IVPUSH DAILY [facility] Last Admin: 12/05/18 09:58 Dose: 40 mg Pantoprazole Sodium (Protonix -) 40 mg PO DAILY [facility] Last Admin: 12/05/18 09:57 Dose: 40 mg Senna (Senna -) 2 tab PO HS PRN PRN Reason: CONSTIPATION Valsartan (Diovan -) 40 mg PO DAILY [facility] Last Admin: 12/05/18 09:56 Dose: 40 mg A/P Acute on Chronic Hypoxic Respiratory Failure Acute COPD Exacerbation Acute Bronchitis Emphysema HTN Hep C Methadone Maintenance - continue medrol 40mg daily, can likely change to PO prednisone 40mg daily in AM - inhaled bronchodilators with brovana and albuterol as needed, declining LAMA at this time - continue antibiotics - f/u cultures - O2 to keep SpO2 >90% - check ambulatory Spo2 on room air - add lactobacillus - DVT prophylaxis Problem List - Problems (1) COPD with acute exacerbation Code(s): J44.1 - CHRONIC OBSTRUCTIVE PULMONARY DISEASE W (ACUTE) EXACERBATION (2) Acute bronchitis Code(s): J20.9 - ACUTE BRONCHITIS, UNSPECIFIED
[2018-12-05] MEDS ORDERED: PT OWN MED DRAWER 7, Y5N ONE (15:33)
[2018-12-05] MEDS: LACTOBACILLUS ACIDOPHILUS 1 TABLET PO SCH (15:40)
[2018-12-06] MEDS: HEPARIN NA (PORCINE) 5,000 UNITS/ML 1ML VIAL SQ SCH ×2 (06:03→13:51)
[2018-12-06 06:42] LABS: HEMATOCRIT 32.8 % (35.4-49); HEMOGLOBIN 10.9 GM/dL (11.7-16.9); MCHC 33.2 g/dl (32.0-35.9); MEAN CELL VOLUME 87.5 fl (80-96); MEAN PLT VOLUME 7.4 fl (7.5-11.1); PLATELET COUNT 249 K/MM3 (134-434); RBC 3.75 M/mm3 (4.00-5.60); RDW 14.2 % (11.9-15.9); WHITE BLOOD COUNT 8.3 K/mm3 (4.0-10.0)
[2018-12-06 07:26] LABS: ALBUMIN 3.2 g/dl (3.4-5.0); BILIRUBIN,TOTAL 0.2 mg/dL (0.2-1); CALCIUM 8.3 mg/dL (8.5-10.1); POTASSIUM 4.2 mmol/L (3.5-5.1); TOT PROT 6.2 g/dl (6.4-8.2)
[2018-12-06] MEDS: ARFORMOTEROL TARTRATE 15 MCG/2 ML VIAL NEB SCH (09:44)
[2018-12-06] MEDS ORDERED: cefTRIAXone SODIUM 1 GM VIAL ONE (09:48)
[2018-12-06] MEDS ORDERED: DEXTROSE 5%-WATER - 50 ML IVPB ONE (09:48)
[2018-12-06] MEDS: methylPREDNISolone NA SUCC 40 MG/1 ML VIAL IVPUSH SCH (09:54)
[2018-12-06] MEDS: PANTOPRAZOLE 40 MG TABLET (FP) PO SCH (09:55)
[2018-12-06] MEDS: CEFTRIAXONE 1 GM in DEXTROSE 5%-WATER - 50 ML IVPB SCH (09:55)
[2018-12-06] MEDS: VALSARTAN 40 MG TABLET (FP) PO SCH (09:55)
[2018-12-06] MEDS: METHADONE HCL 10 MG TABLET PO SCH (09:55)
[2018-12-06] MEDS: LACTOBACILLUS ACIDOPHILUS 1 TABLET PO SCH (09:55)
[2018-12-06] MEDS: AZITHROMYCIN IVPB 250 MG in DEXTROSE 5%-WATER - 250 ML IVPB SCH (09:56)
[2018-12-06 10:44] VITALS: BP 129/86; PULSE 86; TEMP 98
--- NOTE | 2018-12-06 11:18 | PN ---
Progress Note (short form) - Note Progress Note: PULMONARY OFFERS NO COMPLAINTS VSS/AFEBRILE ANICTERIC/POOR DENTITION DIMINISHED NO RHONCHI OR WHEEZE S1S2 BS+ SOFT NO EDEMA LABS/MEDS/NOTESIMAGES REVIEWED A/P Acute on Chronic Hypoxic Respiratory Failure Acute COPD Exacerbation Acute Bronchitis Emphysema HTN Hep C Methadone Maintenance - change to PO prednisone 20mg daily - inhaled bronchodilators - antibiotics as per primary team - O2 to keep SpO2 >90% - Spo2 on room air is normal/refuses to ambulate in order to check o2 sat - DVT prophylaxis - No objection to continuing treatment as an outpatient Opal ROGERS MD
[2018-12-06] MEDS ORDERED: predniSONE 20 MG TABLET (UD) PO SCH (11:30)
--- NOTE | 2018-12-06 13:13 | DS ---
Physical Examination Vital Signs: Vital Signs Temperature 98.0 F 12/06/18 10:43 Pulse Rate 86 12/06/18 10:43 Respiratory Rate 18 12/06/18 10:43 Blood Pressure 129/86 12/06/18 10:43 O2 Sat by Pulse Oximetry (%) 93 L 12/06/18 10:18 Findings/Remarks: Patient is a 72 y/o male with past medical history of COPD, emphysema, Hep B and C, and HTN. Patient presented to ER with SOB and fatigue for 3 days. Symtpoms started as sinus congestion and progressed to malaise, fever, and productive cough. Patient went to see PMD for symtpoms and noted to be hypoxic and febrile in office. Constitutional: Yes: No Distress, Calm Eyes: Yes: Conjunctiva Clear HENT: Yes: Atraumatic Cardiovascular: Yes: Regular Rate and Rhythm Respiratory: Yes: Regular, CTA Bilaterally Gastrointestinal: Yes: Normal Bowel Sounds, Soft Musculoskeletal: Yes: WNL Extremities: Yes: WNL Edema: No Neurological: Yes: Alert, Oriented Psychiatric: Yes: Alert, Oriented Labs: CBC, BMP 12/06/18 05:30 12/06/18 05:30 Discharge Summary Reason For Visit: CHRONIC OBSTRUCTIVE PULMONARY DISEASE Current Active Problems Acute bronchitis (Acute) COPD (chronic obstructive pulmonary disease) (Acute) COPD with acute exacerbation (Acute) HTN (hypertension) (Acute) Leukocytosis (Acute) Methadone maintenance therapy patient (Acute) Prophylactic measure (Acute) Sinusitis, acute (Acute) Hospital Course: see progress notes Laboratory Tests 12/02/18 12/02/18 12/02/18 14:30 14:30 14:45 WBC 15.7 H RBC 4.16 Hgb 12.1 Hct 36.4 MCV 87.6 MCH 29.0 MCHC 33.1 RDW 14.4 Plt Count 179 D MPV 7.3 L Absolute Neuts (auto) 8.3 H Neutrophils % 53.0 D Lymphocytes % 36.6 D Monocytes % 10.1 D Eosinophils % 0.1 D Basophils % 0.2 Nucleated RBC % 0 Sodium Potassium Chloride Carbon Dioxide Anion Gap BUN Creatinine Creat Clearance w eGFR Est GFR (CKD-EPI)AfAm Est GFR (CKD-EPI)NonAf Random Glucose Lactic Acid Calcium Phosphorus Magnesium Total Bilirubin AST ALT Alkaline Phosphatase Troponin I B-Natriuretic Peptide Total Protein Albumin TSH Urine Color Urine Appearance Urine pH Ur Specific Anna Urine Protein Urine Glucose (UA) Urine Ketones Urine Blood Urine Nitrite Urine Bilirubin Urine Urobilinogen Ur Leukocyte Esterase Urine WBC (Auto) Urine RBC (Auto) Urine Casts (Auto) U Epithel Cells (Auto) Urine Bacteria (Auto) Influenza A (Rapid) Negative Influenza B (Rapid) Negative Group A Strep Rapid Negative 12/02/18 12/02/18 12/02/18 14:45 14:45 15:52 WBC RBC Hgb Hct MCV MCH MCHC RDW Plt Count MPV Absolute Neuts (auto) Neutrophils % Lymphocytes % Monocytes % Eosinophils % Basophils % Nucleated RBC % Sodium 133 L Potassium 4.4 Chloride 98 Carbon Dioxide 29 Anion Gap 6 L BUN 17 Creatinine 1.1 Creat Clearance w eGFR 65.80 Est GFR (CKD-EPI)AfAm Est GFR (CKD-EPI)NonAf Random Glucose 107 H Lactic Acid 1.2 Calcium 8.8 Phosphorus Magnesium Total Bilirubin 0.6 AST 19 ALT 18 Alkaline Phosphatase 67 Troponin I < 0.02 B-Natriuretic Peptide Total Protein 7.4 Albumin 3.9 TSH Urine Color Urine Appearance Urine pH Ur Specific Anna Urine Protein Urine Glucose (UA) Urine Ketones Urine Blood Urine Nitrite Urine Bilirubin Urine Urobilinogen Ur Leukocyte Esterase Urine WBC (Auto) Urine RBC (Auto) Urine Casts (Auto) U Epithel Cells (Auto) Urine Bacteria (Auto) Influenza A (Rapid) Influenza B (Rapid) Group A Strep Rapid 12/02/18 12/03/18 12/03/18 16:00 06:30 06:30 WBC 12.3 H RBC 3.86 L Hgb 11.3 L Hct 33.4 L MCV 86.5 MCH 29.2 MCHC 33.7 RDW 13.8 Plt Count 164 MPV 7.7 Absolute Neuts (auto) 5.8 Neutrophils % 47.3 Lymphocytes % 46.4 H D Monocytes % 6.1 Eosinophils % 0.0 D Basophils % 0.2 Nucleated RBC % 0 Sodium 136 Potassium 4.8 Chloride 99 Carbon Dioxide 29 Anion Gap 8 BUN 24 H Creatinine 1.1 Creat Clearance w eGFR 65.80 Est GFR (CKD-EPI)AfAm Est GFR (CKD-EPI)NonAf Random Glucose 136 H Lactic Acid Calcium 8.9 Phosphorus 4.3 Magnesium 2.2 Total Bilirubin 0.5 AST 16 ALT 16 Alkaline Phosphatase 61 Troponin I < 0.02 B-Natriuretic Peptide 853.2 H Total Protein 7.1 Albumin 3.5 TSH 0.90 Urine Color Yellow Urine Appearance Clear Urine pH 5.5 Ur Specific Anna 1.020 Urine Protein 1+ H Urine Glucose (UA) Negative Urine Ketones 1+ H Urine Blood Negative Urine Nitrite Negative Urine Bilirubin Negative Urine Urobilinogen 0.2 Ur Leukocyte Esterase Negative Urine WBC (Auto) 1 Urine RBC (Auto) 1 Urine Casts (Auto) 3 U Epithel Cells (Auto) 0.6 Urine Bacteria (Auto) 0.3 Influenza A (Rapid) Influenza B (Rapid) Group A Strep Rapid 12/04/18 12/04/18 12/05/18 07:18 07:18 06:40 WBC 17.0 H 10.5 H RBC 4.09 3.77 L Hgb 11.8 11.0 L Hct 35.3 L 32.5 L MCV 86.3 86.1 MCH 28.9 29.3 MCHC 33.5 34.0 RDW 14.7 14.0 Plt Count 250 D 241 MPV 7.9 7.5 Absolute Neuts (auto) Neutrophils % Lymphocytes % Monocytes % Eosinophils % Basophils % Nucleated RBC % Sodium 137 Potassium 3.9 Chloride 101 Carbon Dioxide 31 Anion Gap 5 L BUN 27 H Creatinine 1.1 Creat Clearance w eGFR 65.80 Est GFR (CKD-EPI)AfAm Est GFR (CKD-EPI)NonAf Random Glucose 89 Lactic Acid Calcium 8.8 Phosphorus Magnesium Total Bilirubin 0.5 AST 17 ALT 18 Alkaline Phosphatase 57 Troponin I B-Natriuretic Peptide Total Protein 7.2 Albumin 3.7 TSH Urine Color Urine Appearance Urine pH Ur Specific Anna Urine Protein Urine Glucose (UA) Urine Ketones Urine Blood Urine Nitrite Urine Bilirubin Urine Urobilinogen Ur Leukocyte Esterase Urine WBC (Auto) Urine RBC (Auto) Urine Casts (Auto) U Epithel Cells (Auto) Urine Bacteria (Auto) Influenza A (Rapid) Influenza B (Rapid) Group A Strep Rapid 12/05/18 12/06/18 12/06/18 06:40 05:30 05:30 WBC 8.3 RBC 3.75 L Hgb 10.9 L Hct 32.8 L MCV 87.5 MCH 29.0 MCHC 33.2 RDW 14.2 Plt Count 249 MPV 7.4 L Absolute Neuts (auto) Neutrophils % Lymphocytes % Monocytes % Eosinophils % Basophils % Nucleated RBC % Sodium 142 141 Potassium 4.4 4.2 Chloride 106 107 Carbon Dioxide 30 29 Anion Gap 6 L 5 L BUN 31 H 24 H Creatinine 1.2 1.0 Creat Clearance w eGFR Est GFR (CKD-EPI)AfAm 69.60 86.76 Est GFR (CKD-EPI)NonAf 60.05 74.86 Random Glucose 100 92 Lactic Acid Calcium 8.3 L 8.3 L Phosphorus Magnesium Total Bilirubin 0.2 0.2 AST 13 L 12 L ALT 16 19 Alkaline Phosphatase 51 48 Troponin I B-Natriuretic Peptide Total Protein 6.4 6.2 L Albumin 3.2 L 3.2 L TSH Urine Color Urine Appearance Urine pH Ur Specific Anna Urine Protein Urine Glucose (UA) Urine Ketones Urine Blood Urine Nitrite Urine Bilirubin Urine Urobilinogen Ur Leukocyte Esterase Urine WBC (Auto) Urine RBC (Auto) Urine Casts (Auto) U Epithel Cells (Auto) Urine Bacteria (Auto) Influenza A (Rapid) Influenza B (Rapid) Group A Strep Rapid Home Medication List Medication Instructions Recorded Confirmed Type Albuterol Sulfate 0.5% [Ventolin 1 neb IH PRN 03/30/12 03/22/17 History 0.5%] Methadone [Dolophine] 22 mg PO DAILY 03/30/12 03/22/17 History Valsartan [Diovan] 40 mg PO DAILY 07/24/16 03/22/17 History Arformoterol Tartrate [Brovana] 15 mcg IH BID 03/20/17 03/22/17 History Active Medications Generic Name Dose Route Start Last Admin Trade Name Freq PRN Reason Stop Dose Admin Albuterol/Ipratropium 1 amp 12/02/18 18:35 Duoneb - NEB Q6H PRN SHORTNESS OF BREATH Arformoterol Tartrate 1 amp 12/02/18 22:00 12/06/18 09:44 Brovana (Restricted To Pulmonology/Resp) - NEB 1 amp BID FELISA Administration Docusate Sodium 100 mg 12/02/18 18:29 Colace - PO BID PRN CONSTIPATION Heparin Sodium (Porcine) 5,000 unit 12/03/18 22:00 12/06/18 06:03 Heparin - SQ Not Given TID FELISA Ceftriaxone Sodium 1 gm/ 50 mls @ 100 mls/hr 12/03/18 06:00 12/06/18 09:55 Dextrose IVPB 100 mls/hr DAILY FELISA Administration Protocol Lactobacillus Acidophilus 1 tab 12/05/18 13:15 12/06/18 09:55 Bacid - PO 1 tab DAILY FELISA Administration Methadone HCl 20 mg 12/03/18 10:00 12/06/18 09:55 Dolophine - PO 20 mg DAILY FELISA Administration Pantoprazole Sodium 40 mg 12/03/18 10:00 12/06/18 09:55 Protonix - PO 40 mg DAILY FELISA Administration Prednisone 20 mg 12/06/18 11:30 12/06/18 11:42 Deltasone - PO 20 mg DAILY FELISA Administration Senna 2 tab 12/02/18 22:00 Senna - PO HS PRN CONSTIPATION Valsartan 40 mg 12/03/18 10:00 12/06/18 09:55 Diovan - PO 40 mg DAILY FELISA Administration Microbiology 12/02/18 15:50 Blood - Peripheral Venous Blood Culture - Preliminary NO GROWTH OBTAINED AFTER 72 HOURS, INCUBATION TO CONTINUE FOR 2 DAYS. 12/02/18 15:52 Blood - Peripheral Venous Blood Culture - Preliminary NO GROWTH OBTAINED AFTER 72 HOURS, INCUBATION TO CONTINUE FOR 2 DAYS. 12/02/18 15:55 Urine - Urine Clean Catch Urine Culture - Final NO GROWTH OBTAINED 12/02/18 15:09 Throat Throat Culture - Final NO BETA HEMOLYTIC STREPTOCOCCI ISOLATED Condition: Stable - Instructions Diet, Activity, Other Instructions: follow up with pmd in 48hrs follow up with Dr Goss in one week Steroid taper, take prednisone 20mg for 5 days, then take prednisone 10mg for days continue with medication regimen return to ER if respiratory distress, chest pain Referrals: Travis Chu NP [Primary Care Provider] - Disposition: HOME - Home Medications Comprehensive Discharge Medication List: Ambulatory Orders Albuterol Sulfate 0.5% [Ventolin 0.5%] 1 neb IH PRN 03/30/12 Methadone [Dolophine] 22 mg PO DAILY 03/30/12 Valsartan [Diovan] 40 mg PO DAILY 07/24/16 Arformoterol Tartrate [Brovana] 15 mcg IH BID 03/20/17
== END 2018-12-06 14:09 | disposition home or self-care (01) | DRG 189 ==
LOC: JER 13:19 → JERBED 17:07 → J8W 19:07 → OBSVTOIN 12-05 12:06
PROVIDERS: ADMIT Family Medicine; ATTEND Family Medicine
DX: J96.21 Acute and chronic respiratory failure with hypoxia (principal); J44.1 Chronic obstructive pulmonary disease with (acute) exacerbation; F11.20 Opioid dependence, uncomplicated; B19.10 Unspecified viral hepatitis B without hepatic coma; J44.0 Chronic obstructive pulmonary disease with (acute) lower respiratory infection; I10 Essential (primary) hypertension; J20.9 Acute bronchitis, unspecified; B19.20 Unspecified viral hepatitis C without hepatic coma; Z87.891 Personal history of nicotine dependence
CPT/HCPCS: 36415; 71045-TC-FY; 80053; 81003; 83605; 83735; 83880; 84100; 84443; 84484; 85025; 85027; 87040; 87070; 87086; 87804; 87880; 93005; 93010; 93970-TC; 94640; 94761; 99281-25; G0378; J7030

== ENCOUNTER 2019-05-28 11:50 | Emergency (ER) | payer OTHER ==
[2019-05-28 12:00] VITALS: BP 150/71; PULSE 79; TEMP 97.6; BMI 21.6
[2019-05-28 12:50] LABS: BASO % 0.4 % (0-2.0); EOS % 0.7 % (0-4.5); HEMATOCRIT 35.9 % (35.4-49); LYMPH % 81.5 % (8-40); MCH 28.8 pg (25.7-33.7); MCHC 33.4 g/dl (32.0-35.9); MEAN CELL VOLUME 86.3 fl (80-96); MEAN PLT VOLUME 7.2 fl (7.5-11.1); MONO % 8.1 % (3.8-10.2); NEUT % 9.3 % (42.8-82.8); PLATELET COUNT 205 K/MM3 (134-434); RBC 4.16 M/mm3 (4.00-5.60); RDW 14.7 % (11.9-15.9); WHITE BLOOD COUNT 13.5 K/mm3 (4.0-10.0)
[2019-05-28 13:18] LABS: ANISOCYTOSIS 0; MACROCYTOSIS 0; PLATELET ESTIMATE NORMAL; ROULEAU 1+
[2019-05-28 13:20] LABS: BILIRUBIN,TOTAL 0.3 mg/dL (0.2-1); BLOOD UREA NITROGEN 14.6 mg/dL (7-18); CALCIUM 9.1 mg/dL (8.5-10.1); CREATININE 1.1 mg/dL (0.55-1.3); POTASSIUM 4.2 mmol/L (3.5-5.1); TOT PROT 7.3 g/dl (6.4-8.2)
--- NOTE | 2019-05-28 14:31 | PDOC ---
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 Patient states he was "on a pill like Prilosec but it is white" which he stopped taking 4d ago because he was told he did not need to. He states that after he eats he felt palpitations which would resolve on its own. He denies chest pain or SOB during these episodes. Also denies abdominal pain, n/v/d. He has not had symptoms like this before. Denies lightheadedness, back pain, recent illnesses, cough, weightloss, night sweats. Would not experience these symptoms during exertion. PMD: [facility] Pulm: [place] Cards: [place] PMH: see hpi Meds: see med rec Allergies: ether Social: quit smoking 14y ago. Past History - Past Medical History Allergies/Adverse Reactions: Allergies Allergy/AdvReac Type Severity Reaction Status Date / Time ether [Ether] Allergy Verified 05/28/19 12:00 Home Medications: Ambulatory Orders Albuterol Sulfate 0.5% [Ventolin 0.5% Nebulizing Soln. -] 1 neb IH PRN 03/30/12 Methadone [Dolophine -] 22 mg PO DAILY 03/30/12 Valsartan [Diovan] 40 mg PO DAILY 07/24/16 Arformoterol Tartrate [Brovana] 15 mcg IH BID 03/20/17 Albuterol 2.5/Ipratropium 0.5 [Duoneb -] 1 amp NEB Q6H PRN amp 12/06/18 Amox-Tr/K Cl [Augmentin 500-125mg Tablet -] 1 each PO BID 5 Days #10 tablet 05/17 Docusate Sodium [Colace -] 100 mg PO BID PRN #60 capsule 12/06/18 Lactobacillus Acidophilus [Bacid -] 1 tab PO DAILY #7 tab 12/06/18 Pantoprazole Sodium [Protonix -] 40 mg PO DAILY #30 tablet.ec 12/06/18 Sennosides [Senna -] 2 tab PO HS PRN #60 tablet 12/06/18 predniSONE [Deltasone -] 20 mg PO DAILY #10 tablet 12/06/18 Cancer: (Basal Cell) COPD: Yes (emphysema; has had previous hospital admissions for COPD and pneumonia) HTN: Yes Liver Disease: Yes (Hep C and B) Other medical history: On Methadone daily - Immunization History Immunization Up to Date: Yes - Psycho Social/Smoking Cessation Hx Smoking Status: No Smoking History: Former smoker Years of Tobacco Use: 45 Have you smoked in the past 12 months: Yes Number of Cigarettes Smoked Daily: 20 (1PPD x 40years) If you are a former smoker, when did you quit?: 2005 Information on smoking cessation initiated: No 'Breaking Loose' booklet given: 12/02/18 Hx Alcohol Use: No Drug/Substance Use Hx: No Substance Use Type: Cocaine, Heroin Hx Substance Use Treatment: Yes Review of Systems - Review of Systems Constitutional: No: Symptoms Reported HEENTM: No: Symptoms Reported Respiratory: No: Symptoms reported Cardiac (ROS): Yes: Palpitations ABD/GI: Yes: See HPI : No: Symptoms Reported Musculoskeletal: No: Symptoms Reported Integumentary: No: Symptoms Reported Neurological: No: Symptoms reported *Physical Exam - Vital Signs Last Vital Signs Temp Pulse Resp BP Pulse Ox 97.6 F 79 19 150/71 96 05/28/19 11:57 05/28/19 11:57 05/28/19 11:57 05/28/19 11:57 05/28/19 11:57 - Physical Exam General Appearance: Yes: Appropriately Dressed, Thin. No: Apparent Distress HEENT: positive: EOMI, PRISCILLA Neck: positive: Trachea midline, Supple Respiratory/Chest: positive: Lungs Clear, Normal Breath Sounds. negative: Crackles, Rales, Rhonchi, Stridor, Wheezing Cardiovascular: positive: Regular Rhythm, Regular Rate, S1, S2. negative: Edema , JVD, Murmur Gastrointestinal/Abdominal: positive: Normal Bowel Sounds, Soft. negative: Tender, Guarding, Rebound, Mass Musculoskeletal: negative: CVA Tenderness Extremity: positive: Normal Capillary Refill. negative: Swelling, Calf Tenderness, Erythema Integumentary: positive: Normal Color, Dry, Warm. negative: Diaphoresis, Swelling, Bruising Neurologic: positive: retention manager II-XII NML intact, Fully Oriented, Alert, Normal Mood/ Affect, Normal Response, Motor Strength 12/01 ED Treatment Course - LABORATORY CBC & Chemistry Diagram: 05/28/19 12:39 05/28/19 12:39 - ADDITIONAL ORDERS Additional order review: Laboratory Results 05/28/19 05/28/19 05/28/19 12:39 12:39 12:39 Sodium 138 Potassium 4.2 Chloride 101 Carbon Dioxide 32 Anion Gap 5 L BUN 14.6 Creatinine 1.1 Est GFR (CKD-EPI)AfAm 76.78 Est GFR (CKD-EPI)NonAf 66.24 Random Glucose 120 H Calcium 9.1 Total Bilirubin 0.3 AST 21 ALT 24 Alkaline Phosphatase 68 Troponin I < 0.02 Total Protein 7.3 Albumin 4.0 TSH 3.97 H D 05/28/19 12:39 RBC 4.16 MCV 86.3 MCHC 33.4 RDW 14.7 MPV 7.2 L Neutrophils % 9.3 L D Lymphocytes % 81.5 H D Monocytes % 8.1 Eosinophils % 0.7 D Basophils % 0.4 Medical Decision Making - Medical Decision Making 05/28/19 14:40 73y M with PMH of COPD, HTN, Hep B, Hep C presenting to ED with complaints of palpitations after meals. DC'd ?protonix -vitals wnl -PE benign. ddx includes but not limited to pud, malignancy, acs, pe, gerd, vagal stimulation, pheochromocytoma labs completed prior to evaluation of patient which showed wabc 13 with increased lymphocyts and 1+ rouleaux. trop negative cxr no acute pathology. normal abdominal exam, no abdominal complaints or urinary complaints. EKG: nsr at 75bpm. LA 142, QRS 84, QTc 406. no maurice or depressions pt stable for dc home. results of labs discussed with patient, will advise to follow up with heme/onc and resume protonix. referral to GI given as well. given return precautions. Discharge - Discharge Information Problems reviewed: Yes Clinical Impression/Diagnosis: Palpitations, Lymphocytosis Condition: Good Disposition: HOME - Admission No - Follow up/Referral Referrals: Isma Perdue MD [Primary Care Provider] - Royce Oconnell MD [Staff Physician] - Nam Salguero DO [Staff Physician] - - Patient Discharge Instructions Patient Printed Discharge Instructions: DI for Palpitations Additional Instructions: You were seen in the emergency room today for palpitations after eating. For this I recommend taking the medication you were prescribed to take. I recommend that you follow up with a GI doctor. Referral is provided below. I recommend staying away from bread products, fatty and fried foods. Your blood work shows a high lymphocyte (a type of white blood cell) level. For this I recommend seeing a railroad yard worker this week or early next week if possible for this require further investigation. Referral is also provided below. Please let Dr. Oconnell know that you were seen in the emergency room. Come back to the emergency room if you have worsening palpitations, have chest pain, feel short of breath, start vomiting, there is blood in the vomit or stool , you develop fever or rash or if any new or concerning symptom develops. Thank you - Post Discharge Activity
--- NOTE | 2019-05-28 15:00 | PDOC ---
Documentation entered by Mere López SCRIBE, acting as scribe for Alethea Alejandro MD. Alethea Alejandro MD: This documentation has been prepared by the Maribel rodas Sammi, SCRIBE, under my direction and personally reviewed by me in its entirety. I confirm that the documentation accurately reflects all work, treatment, procedures, and medical decision making performed by me. Attending Attestation - Resident Resident Name: MojganJanine - ED Attending Attestation I have performed the following: I have examined & evaluated the patient, The case was reviewed & discussed with the resident, I agree w/resident's findings & plan, Exceptions are as noted - HPI HPI: 05/28/19 14:20 The patient is a 73 year old male, with a significant PMH of COPD, HTN, opioid abuse distantly on methadone, who presents to the emergency department for evaluation of 4 days of palpitations for a few seconds after meals. He describes the palpatations as his "heart racing." He states he was on a medication for reflux that starts with a P and stopped taking it around the same time of onset of symptoms. Denies rapid weight loss, fever, chills. Denies chest pain, shortness of breath , headache and dizziness. Denies fever, chills, nausea, vomiting, diarrhea and constipation. Denies dysuria, frequency, urgency and hematuria. PCP: [facility] Allergies: NKA - Physicial Exam PE: 05/28/19 14:49 GENERAL: Awake, alert, and fully oriented, in no acute distress EYES: PERRLA, EOMI, sclera anicteric, conjunctiva clear ENT: Oropharynx clear without exudates. Moist mucosa NECK: Normal ROM, supple, no lymphadenopathy, JVD, or masses LUNGS: Breath sounds equal, clear to auscultation bilaterally. No wheezes, and no crackles HEART: Regular rate and rhythm, normal S1 and S2, no murmurs, rubs or gallops ABDOMEN: Soft, nontender, normoactive bowel sounds. No guarding, no rebound. No masses EXTREMITIES: Normal range of motion, no edema. No clubbing or cyanosis. No cords, erythema, or tenderness NEUROLOGICAL: Normal speech, cranial nerves intact, 5/5 strength in all 4 extremities, normal sensation to light touch in all 4 extremities, normal cerebellar exam, normal gait, normal reflexes and tone SKIN: Warm, Dry, normal turgor, no rashes or lesions noted. - Medical Decision Making 05/28/19 14:50 73-year-old male presents emergency department with seconds of palpitations while eating after stopping a medication for his reflux 4 days ago. Vitals unremarkable. Exam unremarkable. Labs unremarkable. Patient with no palpitations in the emergency department, and no events reported on telemetry. Unclear etiology of patient's palpitations, however unlikely to represent dangerous pathology Of note, patient with lymphocytosis noted on cbc differential. Discussed lymphocytosis with patient and possibility that this could be due to a bone marrow problem or a cancer. Patient reports he has been told about this problem in the past. Discussed importance of following up with the blood doctor /bareback rider for further evaluation of this problem. Patient in agreement and expresses understanding. We will also refer the patient to GI for better management of his reflux. Patient is clinically stable and well-appearing. I discussed the physical exam findings, ancillary test results and final diagnoses with the patient. I answered all of the patient's questions. The patient was satisfied with the care received and felt comfortable with the discharge plan and treatment plan. The patient will call their primary care physician within 24 hours to arrange follow-up and will return to the Emergency Department with any new, persistent or worsening symptoms. Heart Score/ECG Review #1 05/28/19 14:57 Twelve-lead EKG was performed and reviewed by me. Normal sinus rhythm, rate 75. Normal axis and intervals. No ST elevations or T wave inversions.
== END 2019-05-28 15:09 | disposition home or self-care (01) ==
LOC: JER 11:50
DX: R00.2 Palpitations (principal); D72.820 Lymphocytosis (symptomatic); J44.9 Chronic obstructive pulmonary disease, unspecified; I10 Essential (primary) hypertension; B19.20 Unspecified viral hepatitis C without hepatic coma; Z88.8 Allergy status to other drugs, medicaments and biological substances; Z87.891 Personal history of nicotine dependence; Z85.828 Personal history of other malignant neoplasm of skin; B19.10 Unspecified viral hepatitis B without hepatic coma; F11.21 Opioid dependence, in remission
CPT/HCPCS: 36415; 71045-TC-FY; 80053; 84443; 84484; 85025; 99282-25

== ENCOUNTER 2021-02-01 19:20 | Inpatient (IN) | payer OTHER ==
[2021-02-01 19:34] VITALS: BMI 22.6
[2021-02-01] MEDS ORDERED: methylPREDNISolone NA SUCC 125 MG/2 ML VIAL IVPB ONE (19:42)
[2021-02-01] MEDS ORDERED: ALBUTEROL SO4 2.5/IPRATROPIUM 0.5 INH SOL 3 ML VIAL.NEB. NEB ONE ×3 (19:42→19:44)
[2021-02-01] MEDS ORDERED: MAGNESIUM SULF 50% (8.12 MEQ/2 ML-1 GM VIAL) IVPB ONE (20:18)
[2021-02-01] MEDS ORDERED: MAGNESIUM SULFATE IN WATER 2 GM/50 ML IVPB IVPB ONE (20:20)
[2021-02-01 20:21] LABS: BASO % 0.1 % (0-2.0); EOS % 1.5 % (0-4.5); HEMATOCRIT 37.2 % (35.4-49); LYMPH % 63.6 % (8-40); MCH 28.3 pg (25.7-33.7); MCHC 32.3 g/dl (32.0-35.9); MEAN CELL VOLUME 87.4 fl (80-96); MEAN PLT VOLUME 6.5 fl (7.5-11.1); MONO % 4.9 % (3.8-10.2); NEUT % 29.9 % (42.8-82.8); PLATELET COUNT 208 10^3/uL (134-434); RBC 4.26 M/mm3 (4.00-5.60); RDW 14.2 % (11.9-15.9); WHITE BLOOD COUNT 21.6 K/mm3 (4.0-10.0)
[2021-02-01 20:43] LABS: BLOOD UREA NITROGEN 21.9 mg/dL (7-18); CALCIUM 8.3 mg/dL (8.5-10.1)
[2021-02-01 20:44] LABS: ALBUMIN 3.9 g/dl (3.4-5.0)
[2021-02-01] MEDS ORDERED: PIPERACILLIN/TAZOB 4.5 GM 4.5 GM in DEXTROSE 5%-WATER 100 ML IVPB ONE (20:49)
[2021-02-01 21:40] LABS: BILIRUBIN,TOTAL 0.3 mg/dL (0.2-1); CREATININE 1.1 mg/dL (0.55-1.3); N-TERMINAL BNP 115.5 pg/ml (5-450); TOT PROT 7.5 g/dl (6.4-8.2)
[2021-02-01] MEDS ORDERED: ASPIRIN 81 MG CHEWABLE TABLETS PO ONE (21:53)
[2021-02-01] MEDS ORDERED: PIPERACILLIN/TAZOB 4.5 GM 4.5 GM/100 ML BAG IVPB ONE (22:03)
[2021-02-01] MEDS ORDERED: ASPIRIN 81 MG CHEWABLE TABLETS ONE (22:03)
[2021-02-02] MEDS ORDERED: ALBUTEROL SO4 2.5/IPRATROPIUM 0.5 INH SOL 3 ML VIAL.NEB. NEB PRN (00:54)
[2021-02-02] MEDS ORDERED: methaDONE HCL 10 MG TABLET PO SCH (06:30)
[2021-02-02 06:35] LABS: BASO % 0.2 % (0-2.0); HEMATOCRIT 33.5 % (35.4-49); HEMOGLOBIN 11.3 GM/dL (11.7-16.9); LYMPH % 68.4 % (8-40); MCH 29.1 pg (25.7-33.7); MCHC 33.6 g/dl (32.0-35.9); MEAN CELL VOLUME 86.6 fl (80-96); MONO % 1.5 % (3.8-10.2); NEUT % 29.9 % (42.8-82.8); PLATELET COUNT 176 10^3/uL (134-434); RBC 3.87 M/mm3 (4.00-5.60); RDW 13.9 % (11.9-15.9); WHITE BLOOD COUNT 8.2 K/mm3 (4.0-10.0)
[2021-02-02 06:41] LABS: CALCIUM 8.5 mg/dL (8.5-10.1)
[2021-02-02 06:42] LABS: ALBUMIN 3.6 g/dl (3.4-5.0); BLOOD UREA NITROGEN 22.5 mg/dL (7-18)
[2021-02-02 06:45] LABS: CREATININE 1.2 mg/dL (0.55-1.3)
[2021-02-02 06:46] LABS: BILIRUBIN,TOTAL 0.4 mg/dL (0.2-1); TOT PROT 6.9 g/dl (6.4-8.2)
[2021-02-02 08:15] LABS: PH,URINE 6.5 (5.0-8.0); URINE APPEARANCE CLEAR; URINE BILIRUBIN NEGATIVE (NEGATIVE); URINE COLOR YELLOW; URINE GLUCOSE (UA) NEGATIVE (NEGATIVE); URINE KETONE NEGATIVE (NEGATIVE); URINE LEUK ESTERASE NEGATIVE (NEGATIVE); URINE NITRITE NEGATIVE (NEGATIVE); URINE PROTEIN TRACE (NEGATIVE); URINE UROBILINOGEN 0.2 mg/dL (0.2-1.0)
[2021-02-02 08:33] LABS: LACTIC ACID 4.8 mmol/L (0.4-2.0)
[2021-02-02 09:09] LABS: ANISOCYTOSIS 0; HELMET CELLS 0; HOWELL-JOLLY BODIES 0; MACROCYTOSIS 0; OVALOCYTE 0; PLATELET ESTIMATE NORMAL; ROULEAU 0; SICKELED CELLS 0; TARGET CELLS 0; TEAR DROP CELLS 0; TOXIC GRANULATION 0
[2021-02-02] MEDS ORDERED: LOSARTAN POTASSIUM 50 MG TABLET ONE (09:38)
[2021-02-02] MEDS ORDERED: ASPIRIN 81 MG CHEWABLE TABLETS ONE (09:38)
[2021-02-02] MEDS ORDERED: ALBUTEROL SO4 2.5/IPRATROPIUM 0.5 INH SOL 3 ML VIAL.NEB. NEB ONE (09:38)
[2021-02-02] MEDS ORDERED: methylPREDNISolone NA SUCC 40 MG/1 ML VIAL ONE (09:39)
[2021-02-02] MEDS ORDERED: AZITHROMYCIN IVPB 500 MG/250 ML BAG IVPB ONE (09:39)
[2021-02-02] MEDS ORDERED: HEPARIN NA (PORCINE) 5,000 UNITS/ML 1ML VIAL ONE (09:39)
[2021-02-02] MEDS ORDERED: CEFTRIAXONE 1 GM/50 ML BAG ONE (09:39)
[2021-02-02] MEDS: CEFTRIAXONE 1 GM in DEXTROSE 5%-WATER - 50 ML IVPB SCH (09:49)
[2021-02-02] MEDS: ASPIRIN 81 MG CHEWABLE TABLETS PO SCH (09:49)
[2021-02-02] MEDS: HEPARIN NA (PORCINE) 5,000 UNITS/ML 1ML VIAL SQ SCH ×2 (09:49→21:17)
[2021-02-02] MEDS: AZITHROMYCIN IVPB 500 MG/250 ML BAG IVPB SCH (09:49)
[2021-02-02] MEDS: LOSARTAN POTASSIUM 50 MG TABLET PO SCH (09:49)
[2021-02-02] MEDS: ALBUTEROL SO4 2.5/IPRATROPIUM 0.5 INH SOL 3 ML VIAL.NEB. NEB SCH ×3 (09:49→21:08)
[2021-02-02] MEDS ORDERED: methylPREDNISolone NA SUCC 40 MG/1 ML VIAL IVPUSH SCH ×2 (10:00)
[2021-02-02] MEDS: SODIUM CHLORIDE 0.45%/POT 20 MEQ/1,000 ML INFUS.BAG IV SCH (10:26)
[2021-02-02 15:11] LABS: LACTIC ACID 3.9 mmol/L (0.4-2.0)
[2021-02-02] MEDS: methylPREDNISolone NA SUCC 40 MG/1 ML VIAL IVPUSH SCH ×2 (15:21→21:17)
[2021-02-03] MEDS: methylPREDNISolone NA SUCC 40 MG/1 ML VIAL IVPUSH SCH ×4 (04:36→21:06)
[2021-02-03] MEDS: methaDONE HCL 10 MG TABLET PO SCH (05:58)
[2021-02-03] MEDS: ALBUTEROL SO4 2.5/IPRATROPIUM 0.5 INH SOL 3 ML VIAL.NEB. NEB SCH ×4 (07:25→20:26)
[2021-02-03 07:36] LABS: BASO % 0.1 % (0-2.0); HEMATOCRIT 32.1 % (35.4-49); HEMOGLOBIN 10.9 GM/dL (11.7-16.9); LYMPH % 42.6 % (8-40); MCH 29.2 pg (25.7-33.7); MCHC 33.9 g/dl (32.0-35.9); MEAN PLT VOLUME 7.5 fl (7.5-11.1); MONO % 5.9 % (3.8-10.2); NEUT % 51.4 % (42.8-82.8); PLATELET COUNT 186 10^3/uL (134-434); RBC 3.74 M/mm3 (4.00-5.60); RDW 14.1 % (11.9-15.9); WHITE BLOOD COUNT 10.8 K/mm3 (4.0-10.0)
[2021-02-03 08:07] LABS: ALBUMIN 3.4 g/dl (3.4-5.0)
[2021-02-03 08:08] LABS: CALCIUM 8.3 mg/dL (8.5-10.1)
[2021-02-03 08:11] LABS: BLOOD UREA NITROGEN 25.6 mg/dL (7-18); CREATININE 0.8 mg/dL (0.55-1.3)
[2021-02-03 08:12] LABS: BILIRUBIN,TOTAL 0.4 mg/dL (0.2-1); TOT PROT 6.4 g/dl (6.4-8.2)
[2021-02-03] MEDS ORDERED: cefTRIAXone SODIUM 1 GM VIAL ONE (09:16)
[2021-02-03] MEDS ORDERED: DEXTROSE 5%-WATER - 50 ML IVPB ONE (09:17)
[2021-02-03] MEDS: CEFTRIAXONE 1 GM in DEXTROSE 5%-WATER - 50 ML IVPB SCH (09:19)
[2021-02-03] MEDS: LOSARTAN POTASSIUM 50 MG TABLET PO SCH (09:20)
[2021-02-03] MEDS: ASPIRIN 81 MG CHEWABLE TABLETS PO SCH (09:20)
[2021-02-03] MEDS: HEPARIN NA (PORCINE) 5,000 UNITS/ML 1ML VIAL SQ SCH ×2 (09:20→21:08)
[2021-02-03] MEDS: AZITHROMYCIN IVPB 500 MG/250 ML BAG IVPB SCH (09:53)
[2021-02-03 11:42] LABS: LACTIC ACID 3.4 mmol/L (0.4-2.0)
[2021-02-03] MEDS: SODIUM CHLORIDE 0.45% 1,000 ML IV SCH (15:35)
[2021-02-03] MEDS: SODIUM CHLORIDE 0.45%/POT 20 MEQ/1,000 ML INFUS.BAG IV SCH (15:36)
[2021-02-04] MEDS: methylPREDNISolone NA SUCC 40 MG/1 ML VIAL IVPUSH SCH ×4 (02:25→21:41)
[2021-02-04] MEDS: methaDONE HCL 10 MG TABLET PO SCH (06:48)
[2021-02-04] MEDS: ALBUTEROL SO4 2.5/IPRATROPIUM 0.5 INH SOL 3 ML VIAL.NEB. NEB SCH ×4 (08:22→20:24)
[2021-02-04] MEDS ORDERED: cefTRIAXone SODIUM 1 GM VIAL ONE (10:08)
[2021-02-04] MEDS ORDERED: DEXTROSE 5%-WATER - 50 ML IVPB ONE (10:09)
[2021-02-04] MEDS: LOSARTAN POTASSIUM 50 MG TABLET PO SCH (10:33)
[2021-02-04] MEDS: ASPIRIN 81 MG CHEWABLE TABLETS PO SCH (10:33)
[2021-02-04] MEDS: CEFTRIAXONE 1 GM in DEXTROSE 5%-WATER - 50 ML IVPB SCH (10:34)
[2021-02-04] MEDS: HEPARIN NA (PORCINE) 5,000 UNITS/ML 1ML VIAL SQ SCH ×2 (10:34→21:41)
[2021-02-04] MEDS: AZITHROMYCIN IVPB 500 MG/250 ML BAG IVPB SCH (10:34)
[2021-02-04 12:19] LABS: BASO % 0.1 % (0-2.0); HEMATOCRIT 36.3 % (35.4-49); HEMOGLOBIN 11.7 GM/dL (11.7-16.9); LYMPH % 25.8 % (8-40); MCH 28.3 pg (25.7-33.7); MCHC 32.3 g/dl (32.0-35.9); MEAN CELL VOLUME 87.6 fl (80-96); MEAN PLT VOLUME 7.7 fl (7.5-11.1); MONO % 8.5 % (3.8-10.2); NEUT % 65.6 % (42.8-82.8); PLATELET COUNT 281 10^3/uL (134-434); RBC 4.14 M/mm3 (4.00-5.60); RDW 14.2 % (11.9-15.9); WHITE BLOOD COUNT 16.9 K/mm3 (4.0-10.0)
[2021-02-04 12:48] LABS: ALBUMIN 3.8 g/dl (3.4-5.0)
[2021-02-04 12:53] LABS: BILIRUBIN,TOTAL 0.4 mg/dL (0.2-1); TOT PROT 7.3 g/dl (6.4-8.2)
[2021-02-04 13:03] LABS: LACTIC ACID 3.8 mmol/L (0.4-2.0)
[2021-02-04] MEDS: SODIUM CHLORIDE 0.45% 1,000 ML IV SCH (15:56)
[2021-02-05] MEDS: methylPREDNISolone NA SUCC 40 MG/1 ML VIAL IVPUSH SCH ×4 (02:35→21:34)
[2021-02-05] MEDS: methaDONE HCL 10 MG TABLET PO SCH (06:22)
[2021-02-05] MEDS: ALBUTEROL SO4 2.5/IPRATROPIUM 0.5 INH SOL 3 ML VIAL.NEB. NEB SCH ×4 (07:35→20:56)
[2021-02-05] MEDS: SODIUM CHLORIDE 0.45% 1,000 ML IV SCH ×2 (08:41→15:35)
[2021-02-05] MEDS: AMINO ACIDS/PROTEIN HYDROLYS 30 ML LIQUID.PKT PO SCH (08:42)
[2021-02-05] MEDS ORDERED: cefTRIAXone SODIUM 1 GM VIAL ONE (09:02)
[2021-02-05] MEDS ORDERED: DEXTROSE 5%-WATER - 50 ML IVPB ONE (09:02)
[2021-02-05] MEDS: ASPIRIN 81 MG CHEWABLE TABLETS PO SCH (09:32)
[2021-02-05] MEDS: MULTIVITAMINS (DAILY MVI) TABLET (FP) PO SCH (09:33)
[2021-02-05] MEDS: CEFTRIAXONE 1 GM in DEXTROSE 5%-WATER - 50 ML IVPB SCH (09:33)
[2021-02-05] MEDS: HEPARIN NA (PORCINE) 5,000 UNITS/ML 1ML VIAL SQ SCH ×2 (09:33→21:34)
[2021-02-05] MEDS: LOSARTAN POTASSIUM 50 MG TABLET PO SCH (09:33)
[2021-02-05] MEDS: AZITHROMYCIN IVPB 500 MG/250 ML BAG IVPB SCH (10:29)
[2021-02-05 16:48] LABS: LACTIC ACID 2.3 mmol/L (0.4-2.0)
[2021-02-06] MEDS: methylPREDNISolone NA SUCC 40 MG/1 ML VIAL IVPUSH SCH ×2 (02:57→09:22)
[2021-02-06] MEDS: methaDONE HCL 10 MG TABLET PO SCH (05:55)
[2021-02-06] MEDS: ALBUTEROL SO4 2.5/IPRATROPIUM 0.5 INH SOL 3 ML VIAL.NEB. NEB SCH ×4 (07:47→20:05)
[2021-02-06 08:08] LABS: BASO % 0.1 % (0-2.0); HEMATOCRIT 36.6 % (35.4-49); HEMOGLOBIN 12.1 GM/dL (11.7-16.9); LYMPH % 32.9 % (8-40); MCH 28.7 pg (25.7-33.7); MEAN CELL VOLUME 87.1 fl (80-96); MEAN PLT VOLUME 7.9 fl (7.5-11.1); MONO % 6.8 % (3.8-10.2); NEUT % 60.2 % (42.8-82.8); PLATELET COUNT 278 10^3/uL (134-434); RDW 13.8 % (11.9-15.9); WHITE BLOOD COUNT 8.9 K/mm3 (4.0-10.0)
[2021-02-06 08:23] LABS: BLOOD UREA NITROGEN 25.4 mg/dL (7-18); CALCIUM 8.1 mg/dL (8.5-10.1)
[2021-02-06 08:24] LABS: ALBUMIN 3.4 g/dl (3.4-5.0)
[2021-02-06 08:27] LABS: CREATININE 1.1 mg/dL (0.55-1.3)
[2021-02-06 08:28] LABS: BILIRUBIN,TOTAL 0.3 mg/dL (0.2-1); TOT PROT 6.8 g/dl (6.4-8.2)
[2021-02-06 08:35] LABS: LACTIC ACID 2.5 mmol/L (0.4-2.0)
[2021-02-06] MEDS ORDERED: cefTRIAXone SODIUM 1 GM VIAL ONE (09:11)
[2021-02-06] MEDS ORDERED: DEXTROSE 5%-WATER - 50 ML IVPB ONE (09:12)
[2021-02-06] MEDS: CEFTRIAXONE 1 GM in DEXTROSE 5%-WATER - 50 ML IVPB SCH (09:20)
[2021-02-06] MEDS: AZITHROMYCIN IVPB 500 MG/250 ML BAG IVPB SCH (09:20)
[2021-02-06] MEDS: ASPIRIN 81 MG CHEWABLE TABLETS PO SCH (09:22)
[2021-02-06] MEDS: LOSARTAN POTASSIUM 50 MG TABLET PO SCH (09:22)
[2021-02-06] MEDS: MULTIVITAMINS (DAILY MVI) TABLET (FP) PO SCH (09:22)
[2021-02-06] MEDS: AMINO ACIDS/PROTEIN HYDROLYS 30 ML LIQUID.PKT PO SCH (09:22)
[2021-02-06] MEDS: HEPARIN NA (PORCINE) 5,000 UNITS/ML 1ML VIAL SQ SCH ×2 (09:23→21:14)
[2021-02-06] MEDS: SODIUM CHLORIDE 0.45% 1,000 ML IV SCH (14:49)
[2021-02-06] MEDS ORDERED: methylPREDNISolone NA SUCC 40 MG/1 ML VIAL IVPUSH SCH (22:00)
[2021-02-07] MEDS: methaDONE HCL 10 MG TABLET PO SCH (05:58)
[2021-02-07] MEDS: AMINO ACIDS/PROTEIN HYDROLYS 30 ML LIQUID.PKT PO SCH (08:00)
[2021-02-07] MEDS: LOSARTAN POTASSIUM 50 MG TABLET PO SCH ×2 (08:30→12:47)
[2021-02-07] MEDS: ALBUTEROL SO4 2.5/IPRATROPIUM 0.5 INH SOL 3 ML VIAL.NEB. NEB SCH (08:40)
[2021-02-07] MEDS ORDERED: REGADENOSON 0.4 MG/5 ML PRE-FILLED SYRINGE IVPUSH ONE ×2 (10:14→12:00)
[2021-02-07] MEDS ORDERED: DEXTROSE 5%-WATER - 50 ML IVPB ONE (10:52)
[2021-02-07] MEDS ORDERED: cefTRIAXone SODIUM 1 GM VIAL ONE (10:52)
[2021-02-07 12:45] LABS: LACTIC ACID 2.9 mmol/L (0.4-2.0)
[2021-02-07] MEDS: ASPIRIN 81 MG CHEWABLE TABLETS PO SCH (12:47)
[2021-02-07] MEDS: MULTIVITAMINS (DAILY MVI) TABLET (FP) PO SCH (12:47)
[2021-02-07] MEDS: HEPARIN NA (PORCINE) 5,000 UNITS/ML 1ML VIAL SQ SCH ×2 (12:49→21:04)
[2021-02-08] MEDS: methaDONE HCL 10 MG TABLET PO SCH (05:28)
[2021-02-08 08:52] VITALS: BP 139/83; PULSE 98; TEMP 97.9
[2021-02-08] MEDS: LOSARTAN POTASSIUM 50 MG TABLET PO SCH (09:44)
[2021-02-08] MEDS: HEPARIN NA (PORCINE) 5,000 UNITS/ML 1ML VIAL SQ SCH (09:44)
[2021-02-08] MEDS: ASPIRIN 81 MG CHEWABLE TABLETS PO SCH (09:44)
[2021-02-08] MEDS: MULTIVITAMINS (DAILY MVI) TABLET (FP) PO SCH (09:44)
== END 2021-02-08 10:06 | disposition home or self-care (01) | DRG 190 ==
LOC: JER 19:20 → JERBED 19:48 → J4W 02-02 12:01
PROVIDERS: ADMIT Internal Medicine; ATTEND Family Medicine
DX: J44.1 Chronic obstructive pulmonary disease with (acute) exacerbation (principal); J18.9 Pneumonia, unspecified organism; F11.20 Opioid dependence, uncomplicated; J98.11 Atelectasis; B18.2 Chronic viral hepatitis C; D72.820 Lymphocytosis (symptomatic); I10 Essential (primary) hypertension; R77.8 Other specified abnormalities of plasma proteins; M79.89 Other specified soft tissue disorders; R91.1 Solitary pulmonary nodule
CPT/HCPCS: 36415; 71045-TC-FY; 71250-TC; 78452-TC; 80053; 81003; 82550; 82553; 83540; 83550; 83605; 83880; 84484; 85025; 87040; 87086; 87899; 93005; 93010; 93017; 93306-TC; 93970-TC; 94640; 99285-25; A9502; C9803; J1644; J2785; J3480; U0003; U0005

== ENCOUNTER 2022-09-10 19:44 | Observation (INO) | payer OTHER ==
[2022-09-10 20:26] VITALS: BMI 21.3
[2022-09-10] MEDS ORDERED: DICYCLOMINE HCL 10 MG CAPSULE PO ONE (21:04)
[2022-09-10] MEDS ORDERED: MAG HYDROX/AL HYDROX/SIMETH 30 ML UNIT-DOSE CUP PO ONE (21:04)
[2022-09-10] MEDS ORDERED: LIDOCAINE VISCOUS 2% ORAL/TOP 15 ML UNIT-DOSE CUP MM ONE (21:05)
[2022-09-10] MEDS ORDERED: DICYCLOMINE HCL 10 MG CAPSULE ONE (21:17)
[2022-09-10] MEDS ORDERED: MAG HYDROX/AL HYDROX/SIMETH 30 ML UNIT-DOSE CUP ONE (21:18)
[2022-09-10] MEDS ORDERED: LIDOCAINE VISCOUS 2% ORAL/TOP 15 ML UNIT-DOSE CUP ONE (21:19)
[2022-09-10 21:36] LABS: HEMATOCRIT 36.8 % (35.4-49); HEMOGLOBIN 12.3 GM/dL (11.7-16.9); MCH 29.5 pg (25.7-33.7); MCHC 33.5 g/dl (32.0-35.9); MEAN CELL VOLUME 87.9 fl (80-96); MEAN PLT VOLUME 7.5 fl (7.5-11.1); PLATELET COUNT 200 10^3/uL (134-434); RBC 4.18 M/mm3 (4.00-5.60); RDW 14.5 % (11.9-15.9); WHITE BLOOD COUNT 14.4 K/mm3 (4.0-10.0)
[2022-09-10 21:51] LABS: INR 1.02 (0.83-1.09); PROTHROMBIN TIME (PATIENT) 11.8 SEC (9.7-13.0)
[2022-09-10 21:54] LABS: ACTIVATED PTT 27.3 SECONDS (25.2-36.5)
[2022-09-10 21:58] LABS: CALCIUM 8.8 mg/dL (8.5-10.1)
[2022-09-10 21:59] LABS: BLOOD UREA NITROGEN 17.4 mg/dL (7-18)
[2022-09-10 22:02] LABS: CREATININE 0.9 mg/dL (0.55-1.3)
[2022-09-10 22:03] LABS: BILIRUBIN,TOTAL 0.6 mg/dL (0.2-1); TOT PROT 7.4 g/dl (6.4-8.2)
[2022-09-10 22:53] LABS: PLATELET ESTIMATE ADEQUATE
[2022-09-11] MEDS ORDERED: AMOX TR/POT CLAV 875MG/125MG TABLETS (FP) PO ONE (00:21)
[2022-09-11] MEDS ORDERED: AMOX TR/POT CLAV 875MG/125MG TABLETS (FP) ONE (00:41)
[2022-09-11] MEDS ORDERED: ALBUTEROL SO4 2.5/IPRATROPIUM 0.5 INH SOL 3 ML VIAL.NEB. NEB PRN (01:07)
[2022-09-11 06:14] LABS: HEMATOCRIT 34.6 % (35.4-49); HEMOGLOBIN 11.7 GM/dL (11.7-16.9); MCH 29.4 pg (25.7-33.7); MCHC 33.7 g/dl (32.0-35.9); MEAN CELL VOLUME 87.2 fl (80-96); MEAN PLT VOLUME 7.2 fl (7.5-11.1); PLATELET COUNT 176 10^3/uL (134-434); RBC 3.97 M/mm3 (4.00-5.60); RDW 14.3 % (11.9-15.9); WHITE BLOOD COUNT 13.2 K/mm3 (4.0-10.0)
[2022-09-11 06:48] LABS: CALCIUM 8.6 mg/dL (8.5-10.1)
[2022-09-11 06:49] LABS: BLOOD UREA NITROGEN 19.6 mg/dL (7-18)
[2022-09-11] MEDS ORDERED: methaDONE HCL 10 MG TABLET PO ONE (07:30)
[2022-09-11 08:38] LABS: ANISOCYTOSIS 2+; MACROCYTOSIS 0
[2022-09-11] MEDS ORDERED: PANTOPRAZOLE SODIUM 40 MG/100 ML BAG IVPB ONE (08:41)
[2022-09-11] MEDS ORDERED: ALBUTEROL SO4 2.5/IPRATROPIUM 0.5 INH SOL 3 ML VIAL.NEB. NEB SCH ×2 (09:00→20:09)
[2022-09-11] MEDS: DEXTROSE 5%-0.45% SALINE 1,000 ML IV SCH (09:01)
[2022-09-11] MEDS ORDERED: PANTOPRAZOLE SODIUM 40 MG VIAL IVPUSH SCH (10:00)
[2022-09-11] MEDS ORDERED: VALSARTAN 80 MG TABLET PO SCH (10:00)
[2022-09-11] MEDS ORDERED: FAMOTIDINE 20 MG/50 ML IVPB 20 MG/50 ML MG IVPB SCH (10:00)
[2022-09-11] MEDS ORDERED: POLYETHYLENE GLYCOL 3350 255 GM BTL PO ONE (15:15)
[2022-09-11] MEDS: VALSARTAN 80 MG TABLET PO SCH (16:24)
[2022-09-11] MEDS: ALBUTEROL SO4 2.5/IPRATROPIUM 0.5 INH SOL 3 ML VIAL.NEB. NEB SCH (20:14)
[2022-09-12] MEDS: ALBUTEROL SO4 2.5/IPRATROPIUM 0.5 INH SOL 3 ML VIAL.NEB. NEB SCH ×4 (07:52→19:52)
[2022-09-12] MEDS: DEXTROSE 5%-0.45% SALINE 1,000 ML IV SCH (12:06)
[2022-09-12] MEDS: VALSARTAN 80 MG TABLET PO SCH (12:08)
[2022-09-12] MEDS: PANTOPRAZOLE 40 MG TABLET PO SCH (12:08)
[2022-09-12] MEDS: methaDONE HCL 10 MG TABLET PO SCH (14:03)
[2022-09-13] MEDS: DEXTROSE 5%-0.45% SALINE 1,000 ML IV SCH (05:23)
[2022-09-13] MEDS: methaDONE HCL 10 MG TABLET PO SCH (05:23)
[2022-09-13 06:58] VITALS: RESP 17
[2022-09-13] MEDS: ALBUTEROL SO4 2.5/IPRATROPIUM 0.5 INH SOL 3 ML VIAL.NEB. NEB SCH ×3 (07:50→16:27)
[2022-09-13] MEDS: VALSARTAN 80 MG TABLET PO SCH (10:31)
[2022-09-13] MEDS: PANTOPRAZOLE 40 MG TABLET PO SCH (10:31)
[2022-09-13 11:33] VITALS: BP 138/67; PULSE 78; TEMP 98.3
[2022-09-13] MEDS ORDERED: POLYETHYLENE GLYCOL (HEALTHYLAX) 3350 17 GM PACKET PO SCH (22:00)
== END 2022-09-13 15:50 | disposition home health service (06) ==
LOC: JER 19:44 → JERBED 09-11 00:52 → J7W 09-11 15:17
PROVIDERS: ADMIT Internal Medicine; ATTEND Family Medicine
PROC: 3E033GC Introduction of Other Therapeutic Substance into Peripheral Vein, Percutaneous Approach (ICD-10-PCS; principal; 2022-09-11)
DX: K52.9 Noninfective gastroenteritis and colitis, unspecified (principal); R63.0 Anorexia; K59.01 Slow transit constipation; R10.84 Generalized abdominal pain; R53.1 Weakness; J43.9 Emphysema, unspecified; Z99.81 Dependence on supplemental oxygen; F14.21 Cocaine dependence, in remission; B19.20 Unspecified viral hepatitis C without hepatic coma; B19.10 Unspecified viral hepatitis B without hepatic coma; Z87.891 Personal history of nicotine dependence; Z88.8 Allergy status to other drugs, medicaments and biological substances
CPT/HCPCS: 36415; 71045-TC-FY; 74177-TC; 80048; 80053; 83605; 83690; 83735; 85025; 85610; 85730; 86850; 86900; 86901; 87040; 93005; 93010; 94640; 96374; 97116-GP; 97162-GP; 99285-25; C9803-CS; G0378; Q9967; U0003; U0005

== ENCOUNTER 2023-01-09 10:08 | Inpatient (IN) | payer OTHER ==
[2023-01-09] MEDS ORDERED: methaDONE HCL 10 MG TABLET PO ONE (11:00)
[2023-01-09] MEDS ORDERED: methaDONE HCL 10 MG TABLET ONE (11:04)
[2023-01-09] MEDS ORDERED: ALBUTEROL SO4 2.5/IPRATROPIUM 0.5 INH SOL 3 ML VIAL.NEB. NEB ONE ×2 (11:12→11:18)
[2023-01-09 12:04] LABS: VENOUS BASE EXCESS 0.6 mmol/L (-2-2); VENOUS O2 SATURATION 26.5 % (70-80); VENOUS PCO2 62.6 mmHg (38-52); VENOUS PH 7.279 (7.310-7.410)
[2023-01-09 12:12] LABS: HEMATOCRIT 37.1 % (35.4-49); HEMOGLOBIN 12.3 GM/dL (11.7-16.9); MCH 27.9 pg (25.7-33.7); MCHC 33.1 g/dl (32.0-35.9); MEAN CELL VOLUME 84.3 fl (80-96); MEAN PLT VOLUME 7.1 fl (7.5-11.1); PLATELET COUNT 205 10^3/uL (134-434); RDW 14.6 % (11.9-15.9); WHITE BLOOD COUNT 16.5 K/mm3 (4.0-10.0)
[2023-01-09 12:23] LABS: POTASSIUM 4.2 mmol/L (3.5-5.1)
[2023-01-09 12:25] LABS: CALCIUM 9.1 mg/dL (8.5-10.1)
[2023-01-09 12:27] LABS: ALBUMIN 4.1 g/dl (3.4-5.0); BLOOD UREA NITROGEN 15.5 mg/dL (7-18)
[2023-01-09 12:29] LABS: CREATININE 1.1 mg/dL (0.55-1.3)
[2023-01-09 12:30] LABS: BILIRUBIN,TOTAL 0.5 mg/dL (0.2-1); TOT PROT 7.6 g/dl (6.4-8.2)
[2023-01-09 12:35] LABS: ANISOCYTOSIS 0; MACROCYTOSIS 0
[2023-01-09] MEDS ORDERED: methylPREDNISolone NA SUCC 125 MG/2 ML VIAL IVPB ONE (12:57)
[2023-01-09] MEDS ORDERED: methylPREDNISolone NA SUCC 125 MG/2 ML VIAL ONE (13:08)
[2023-01-09] MEDS ORDERED: AZITHROMYCIN 500 MG TABLET PO ONE (13:56)
[2023-01-09] MEDS ORDERED: AZITHROMYCIN 500 MG TABLET ONE (14:50)
[2023-01-09] MEDS ORDERED: SENNOSIDES 8.6MG TABLET (FP) PO PRN (15:44)
[2023-01-09] MEDS ORDERED: DOCUSATE SODIUM 100 MG CAPSULE (FP) PO PRN (15:44)
[2023-01-09] MEDS ORDERED: ALBUTEROL SO4 2.5/IPRATROPIUM 0.5 INH SOL 3 ML VIAL.NEB. NEB PRN (15:44)
[2023-01-09] MEDS ORDERED: CEFTRIAXONE 1 GM/50 ML BAG ONE (16:37)
[2023-01-09] MEDS ORDERED: methylPREDNISolone NA SUCC 40 MG/1 ML VIAL ONE (16:37)
[2023-01-09] MEDS: methylPREDNISolone NA SUCC 40 MG/1 ML VIAL IVPUSH SCH ×2 (16:57→21:44)
[2023-01-09] MEDS: CEFTRIAXONE 1 GM in DEXTROSE 5%-WATER - 50 ML IVPB SCH (16:57)
[2023-01-09] MEDS ORDERED: KETOROLAC TROMETHAMINE 30 MG/1 ML VIAL IM ONE (20:29)
[2023-01-09] MEDS ORDERED: ACETAMINOPHEN 1000 MG/100 ML BAG IVPB PRN (20:30)
[2023-01-09] MEDS: PANTOPRAZOLE 40 MG TABLET PO SCH (21:46)
[2023-01-09] MEDS: HEPARIN NA (PORCINE) 5,000 UNITS/ML 1ML VIAL SQ SCH (21:52)
[2023-01-10] MEDS: methylPREDNISolone NA SUCC 40 MG/1 ML VIAL IVPUSH SCH ×4 (03:39→21:21)
[2023-01-10 08:16] LABS: HEMATOCRIT 34.6 % (35.4-49); HEMOGLOBIN 11.3 GM/dL (11.7-16.9); MCH 28.1 pg (25.7-33.7); MCHC 32.6 g/dl (32.0-35.9); MEAN PLT VOLUME 8.6 fl (7.5-11.1); PLATELET COUNT 183 10^3/uL (134-434); RBC 4.02 M/mm3 (4.00-5.60); RDW 14.6 % (11.9-15.9)
[2023-01-10 08:33] LABS: POTASSIUM 4.7 mmol/L (3.5-5.1)
[2023-01-10 08:39] LABS: ALBUMIN 3.7 g/dl (3.4-5.0)
[2023-01-10 08:40] LABS: BLOOD UREA NITROGEN 28.4 mg/dL (7-18); CALCIUM 9.3 mg/dL (8.5-10.1); MAGNESIUM 2.1 mg/dL (1.8-2.4)
[2023-01-10 08:42] LABS: CREATININE 1.1 mg/dL (0.55-1.3)
[2023-01-10 08:43] LABS: BILIRUBIN,TOTAL 0.5 mg/dL (0.2-1); TOT PROT 6.9 g/dl (6.4-8.2)
[2023-01-10] MEDS: CEFTRIAXONE 1 GM in DEXTROSE 5%-WATER - 50 ML IVPB SCH (09:34)
[2023-01-10] MEDS: HEPARIN NA (PORCINE) 5,000 UNITS/ML 1ML VIAL SQ SCH ×2 (09:35→21:24)
[2023-01-10] MEDS: VALSARTAN 40 MG TABLET PO SCH (09:35)
[2023-01-10] MEDS: LACTOBACILLUS ACIDOPHILUS 1 TABLET PO SCH (09:35)
[2023-01-10] MEDS: ASPIRIN 81 MG CHEWABLE TABLETS PO SCH (09:35)
[2023-01-10] MEDS: PANTOPRAZOLE 40 MG TABLET PO SCH ×2 (09:35→21:25)
[2023-01-10] MEDS ORDERED: methaDONE HCL 10 MG TABLET PO SCH (10:00)
[2023-01-10] MEDS: ALBUTEROL SO4 2.5/IPRATROPIUM 0.5 INH SOL 3 ML VIAL.NEB. NEB SCH ×2 (10:45→11:50)
[2023-01-10 10:51] LABS: ANISOCYTOSIS 1+; MACROCYTOSIS 0
[2023-01-10] MEDS ORDERED: ALBUTEROL SO4 0.083% IH SOL 2.5 MG/3 ML VIAL.NEB. NEB PRN (14:24)
[2023-01-10] MEDS: FLUTICASONE/UMECLIDIN/VILANTER(200-62.5-25 TRELEGY ELLIPTA) INAHLER IH SCH (15:55)
[2023-01-10] MEDS ORDERED: ACETAMINOPHEN 1000 MG/100 ML BAG IVPB PRN (22:27)
[2023-01-11] MEDS: methylPREDNISolone NA SUCC 40 MG/1 ML VIAL IVPUSH SCH ×3 (03:15→21:50)
[2023-01-11] MEDS: CEFTRIAXONE 1 GM in DEXTROSE 5%-WATER - 50 ML IVPB SCH (09:07)
[2023-01-11] MEDS: LACTOBACILLUS ACIDOPHILUS 1 TABLET PO SCH (09:08)
[2023-01-11] MEDS: ASPIRIN 81 MG CHEWABLE TABLETS PO SCH (09:08)
[2023-01-11] MEDS: VALSARTAN 40 MG TABLET PO SCH (09:08)
[2023-01-11] MEDS: HEPARIN NA (PORCINE) 5,000 UNITS/ML 1ML VIAL SQ SCH ×2 (09:08→21:50)
[2023-01-11] MEDS: PANTOPRAZOLE 40 MG TABLET PO SCH ×2 (09:08→21:50)
[2023-01-11] MEDS: methaDONE HCL 10 MG TABLET PO SCH (09:37)
[2023-01-11] MEDS: FLUTICASONE/UMECLIDIN/VILANTER(200-62.5-25 TRELEGY ELLIPTA) INAHLER IH SCH (11:23)
[2023-01-11] MEDS: BUDESONIDE/FORMETEROL FUMARATE 160/4.5 mcg INHALER IH SCH ×2 (12:37→21:50)
[2023-01-11 13:53] LABS: POTASSIUM 3.4 mmol/L (3.5-5.1)
[2023-01-11 13:56] LABS: BLOOD UREA NITROGEN 34.8 mg/dL (7-18); CALCIUM 9.4 mg/dL (8.5-10.1)
[2023-01-11 13:58] LABS: CREATININE 1.2 mg/dL (0.55-1.3)
[2023-01-11 14:00] LABS: BILIRUBIN,TOTAL 0.3 mg/dL (0.2-1); TOT PROT 7.4 g/dl (6.4-8.2)
[2023-01-11] MEDS: ALBUTEROL SO4 2.5/IPRATROPIUM 0.5 INH SOL 3 ML VIAL.NEB. NEB SCH ×2 (14:41→20:56)
[2023-01-12] MEDS: methaDONE HCL 10 MG TABLET PO SCH (06:31)
[2023-01-12] MEDS: ALBUTEROL SO4 2.5/IPRATROPIUM 0.5 INH SOL 3 ML VIAL.NEB. NEB SCH ×3 (08:50→20:39)
[2023-01-12] MEDS: CEFTRIAXONE 1 GM in DEXTROSE 5%-WATER - 50 ML IVPB SCH (10:08)
[2023-01-12] MEDS: HEPARIN NA (PORCINE) 5,000 UNITS/ML 1ML VIAL SQ SCH ×2 (10:09→22:00)
[2023-01-12] MEDS: VALSARTAN 40 MG TABLET PO SCH (10:09)
[2023-01-12] MEDS: methylPREDNISolone NA SUCC 40 MG/1 ML VIAL IVPUSH SCH ×2 (10:09→22:01)
[2023-01-12] MEDS: ASPIRIN 81 MG CHEWABLE TABLETS PO SCH (10:09)
[2023-01-12] MEDS: PANTOPRAZOLE 40 MG TABLET PO SCH ×2 (10:09→22:00)
[2023-01-12] MEDS: LACTOBACILLUS ACIDOPHILUS 1 TABLET PO SCH (10:09)
[2023-01-12] MEDS: BUDESONIDE/FORMETEROL FUMARATE 160/4.5 mcg INHALER IH SCH ×2 (11:21→22:01)
[2023-01-13] MEDS: methaDONE HCL 10 MG TABLET PO SCH (06:02)
[2023-01-13] MEDS: ALBUTEROL SO4 2.5/IPRATROPIUM 0.5 INH SOL 3 ML VIAL.NEB. NEB SCH ×3 (08:30→21:08)
[2023-01-13] MEDS: HEPARIN NA (PORCINE) 5,000 UNITS/ML 1ML VIAL SQ SCH ×2 (09:12→22:07)
[2023-01-13] MEDS: VALSARTAN 40 MG TABLET PO SCH (09:12)
[2023-01-13] MEDS: methylPREDNISolone NA SUCC 40 MG/1 ML VIAL IVPUSH SCH ×2 (09:12→22:09)
[2023-01-13] MEDS: LACTOBACILLUS ACIDOPHILUS 1 TABLET PO SCH (09:12)
[2023-01-13] MEDS: PANTOPRAZOLE 40 MG TABLET PO SCH ×2 (09:13→22:09)
[2023-01-13] MEDS: CEFTRIAXONE 1 GM in DEXTROSE 5%-WATER - 50 ML IVPB SCH (09:13)
[2023-01-13] MEDS: ASPIRIN 81 MG CHEWABLE TABLETS PO SCH (09:13)
[2023-01-13] MEDS: BUDESONIDE/FORMETEROL FUMARATE 160/4.5 mcg INHALER IH SCH ×3 (09:20→22:17)
[2023-01-14] MEDS: methaDONE HCL 10 MG TABLET PO SCH (06:22)
[2023-01-14] MEDS: ALBUTEROL SO4 2.5/IPRATROPIUM 0.5 INH SOL 3 ML VIAL.NEB. NEB SCH ×3 (07:40→19:46)
[2023-01-14] MEDS: ASPIRIN 81 MG CHEWABLE TABLETS PO SCH (09:03)
[2023-01-14] MEDS: PANTOPRAZOLE 40 MG TABLET PO SCH ×2 (09:03→21:12)
[2023-01-14] MEDS: LACTOBACILLUS ACIDOPHILUS 1 TABLET PO SCH (09:03)
[2023-01-14] MEDS: methylPREDNISolone NA SUCC 40 MG/1 ML VIAL IVPUSH SCH ×2 (09:03→21:13)
[2023-01-14] MEDS: HEPARIN NA (PORCINE) 5,000 UNITS/ML 1ML VIAL SQ SCH ×2 (09:03→21:11)
[2023-01-14] MEDS: VALSARTAN 40 MG TABLET PO SCH (09:04)
[2023-01-14] MEDS: BUDESONIDE/FORMETEROL FUMARATE 160/4.5 mcg INHALER IH SCH ×2 (09:04→21:13)
[2023-01-14] MEDS: CEFTRIAXONE 1 GM in DEXTROSE 5%-WATER - 50 ML IVPB SCH (09:04)
[2023-01-15] MEDS: methaDONE HCL 10 MG TABLET PO SCH (05:40)
[2023-01-15] MEDS: ALBUTEROL SO4 2.5/IPRATROPIUM 0.5 INH SOL 3 ML VIAL.NEB. NEB SCH ×3 (07:30→20:36)
[2023-01-15] MEDS: PANTOPRAZOLE 40 MG TABLET PO SCH ×2 (09:18→21:11)
[2023-01-15] MEDS: LACTOBACILLUS ACIDOPHILUS 1 TABLET PO SCH (09:19)
[2023-01-15] MEDS: VALSARTAN 40 MG TABLET PO SCH (09:19)
[2023-01-15] MEDS: HEPARIN NA (PORCINE) 5,000 UNITS/ML 1ML VIAL SQ SCH ×2 (09:19→21:11)
[2023-01-15] MEDS: predniSONE 20 MG TABLET (UD) PO SCH ×2 (09:19→21:11)
[2023-01-15] MEDS: ASPIRIN 81 MG CHEWABLE TABLETS PO SCH (09:19)
[2023-01-15] MEDS: CEFTRIAXONE 1 GM in DEXTROSE 5%-WATER - 50 ML IVPB SCH (09:21)
[2023-01-15] MEDS: BUDESONIDE/FORMETEROL FUMARATE 160/4.5 mcg INHALER IH SCH ×2 (09:22→21:12)
[2023-01-15 10:06] LABS: HEMATOCRIT 33.6 % (35.4-49); MCH 28.6 pg (25.7-33.7); MCHC 32.7 g/dl (32.0-35.9); MEAN CELL VOLUME 87.6 fl (80-96); MEAN PLT VOLUME 8.4 fl (7.5-11.1); PLATELET COUNT 289 10^3/uL (134-434); RBC 3.84 M/mm3 (4.00-5.60); WHITE BLOOD COUNT 18.1 K/mm3 (4.0-10.0)
[2023-01-15 10:39] LABS: POTASSIUM 4.2 mmol/L (3.5-5.1)
[2023-01-15 10:42] LABS: ALBUMIN 3.3 g/dl (3.4-5.0); CALCIUM 8.8 mg/dL (8.5-10.1)
[2023-01-15 10:45] LABS: CREATININE 1.2 mg/dL (0.55-1.3); MAGNESIUM 2.2 mg/dL (1.8-2.4)
[2023-01-15 10:47] LABS: BILIRUBIN,TOTAL 0.4 mg/dL (0.2-1); TOT PROT 6.2 g/dl (6.4-8.2)
[2023-01-15 10:59] LABS: ANISOCYTOSIS 1+; MACROCYTOSIS 0
[2023-01-16] MEDS: methaDONE HCL 10 MG TABLET PO SCH (05:35)
[2023-01-16] MEDS: ALBUTEROL SO4 2.5/IPRATROPIUM 0.5 INH SOL 3 ML VIAL.NEB. NEB SCH (07:40)
[2023-01-16] MEDS: VALSARTAN 40 MG TABLET PO SCH (09:15)
[2023-01-16] MEDS: PANTOPRAZOLE 40 MG TABLET PO SCH ×2 (09:15→22:35)
[2023-01-16] MEDS: ASPIRIN 81 MG CHEWABLE TABLETS PO SCH (09:15)
[2023-01-16] MEDS: predniSONE 20 MG TABLET (UD) PO SCH ×2 (09:15→22:35)
[2023-01-16] MEDS: LACTOBACILLUS ACIDOPHILUS 1 TABLET PO SCH (09:15)
[2023-01-16] MEDS: CEFTRIAXONE 1 GM in DEXTROSE 5%-WATER - 50 ML IVPB SCH (09:15)
[2023-01-16] MEDS: HEPARIN NA (PORCINE) 5,000 UNITS/ML 1ML VIAL SQ SCH (09:15)
[2023-01-16] MEDS: BUDESONIDE/FORMETEROL FUMARATE 160/4.5 mcg INHALER IH SCH ×2 (09:20→22:35)
[2023-01-16] MEDS: ALPRAZolam 0.25 MG TABLET PO PRN (11:49)
[2023-01-17] MEDS: predniSONE 20 MG TABLET (UD) PO SCH ×3 (00:48→21:33)
[2023-01-17] MEDS: PANTOPRAZOLE 40 MG TABLET PO SCH ×3 (00:48→21:34)
[2023-01-17] MEDS: methaDONE HCL 10 MG TABLET PO SCH (06:28)
[2023-01-17] MEDS: VALSARTAN 40 MG TABLET PO SCH (09:10)
[2023-01-17] MEDS: LACTOBACILLUS ACIDOPHILUS 1 TABLET PO SCH (09:10)
[2023-01-17] MEDS: ASPIRIN 81 MG CHEWABLE TABLETS PO SCH (09:10)
[2023-01-17] MEDS: BUDESONIDE/FORMETEROL FUMARATE 160/4.5 mcg INHALER IH SCH ×2 (09:11→21:34)
[2023-01-17] MEDS: ALPRAZolam 0.25 MG TABLET PO PRN (21:34)
[2023-01-18] MEDS: methaDONE HCL 10 MG TABLET PO SCH (05:59)
[2023-01-18 08:00] LABS: HEMATOCRIT 34.1 % (35.4-49); MCH 28.3 pg (25.7-33.7); MCHC 32.2 g/dl (32.0-35.9); MEAN CELL VOLUME 87.8 fl (80-96); MEAN PLT VOLUME 8.7 fl (7.5-11.1); PLATELET COUNT 282 10^3/uL (134-434); RBC 3.89 M/mm3 (4.00-5.60); RDW 15.1 % (11.9-15.9); WHITE BLOOD COUNT 17.5 K/mm3 (4.0-10.0)
[2023-01-18 08:23] LABS: POTASSIUM 4.9 mmol/L (3.5-5.1)
[2023-01-18 08:27] LABS: CALCIUM 8.9 mg/dL (8.5-10.1)
[2023-01-18 08:28] VITALS: RESP 18
[2023-01-18 08:28] LABS: BLOOD UREA NITROGEN 35.1 mg/dL (7-18)
[2023-01-18 08:31] LABS: CREATININE 1.1 mg/dL (0.55-1.3)
[2023-01-18] MEDS: predniSONE 20 MG TABLET (UD) PO SCH (09:54)
[2023-01-18] MEDS: VALSARTAN 40 MG TABLET PO SCH (09:54)
[2023-01-18] MEDS: LACTOBACILLUS ACIDOPHILUS 1 TABLET PO SCH (09:54)
[2023-01-18] MEDS: PANTOPRAZOLE 40 MG TABLET PO SCH (09:54)
[2023-01-18] MEDS: ASPIRIN 81 MG CHEWABLE TABLETS PO SCH (09:55)
[2023-01-18] MEDS: BUDESONIDE/FORMETEROL FUMARATE 160/4.5 mcg INHALER IH SCH (09:55)
[2023-01-18] MEDS: ALPRAZolam 0.25 MG TABLET PO PRN (09:56)
[2023-01-18 10:39] LABS: ANISOCYTOSIS 1+; MACROCYTOSIS 0
[2023-01-18 18:11] VITALS: BP 132/75; PULSE 85; TEMP 98
== END 2023-01-18 18:41 | DRG 190 ==
LOC: JER 10:08 → JERBED 14:06 → J4W 16:50
PROVIDERS: ADMIT Family Medicine; ATTEND Family Medicine
DX: J43.9 Emphysema, unspecified (principal); I21.4 Non-ST elevation (NSTEMI) myocardial infarction; F11.20 Opioid dependence, uncomplicated; J96.11 Chronic respiratory failure with hypoxia; Z99.81 Dependence on supplemental oxygen; D72.829 Elevated white blood cell count, unspecified; I10 Essential (primary) hypertension; R77.8 Other specified abnormalities of plasma proteins; R91.8 Other nonspecific abnormal finding of lung field
CPT/HCPCS: 0241U-QW; 36415; 71045-TC-FY; 71250-TC; 80048; 80053; 80061; 82803; 83036; 83735; 83880; 84443; 84484; 85025; 87040; 87635; 93005; 93010; 93306-TC; 94640; 97116-GP; 97162-GP; 99285-25; J1644

== ENCOUNTER 2023-03-16 11:05 | Inpatient (IN) | payer OTHER ==
[2023-03-16 11:29] VITALS: BMI 17.1
[2023-03-16 14:32] LABS: HEMATOCRIT 32.5 % (35.4-49); HEMOGLOBIN 10.7 GM/dL (11.7-16.9); MCH 29.5 pg (25.7-33.7); MCHC 32.9 g/dl (32.0-35.9); MEAN CELL VOLUME 89.7 fl (80-96); MEAN PLT VOLUME 6.7 fl (7.5-11.1); PLATELET COUNT 325 10^3/uL (134-434); RBC 3.62 M/mm3 (4.00-5.60); RDW 17.9 % (11.9-15.9); WHITE BLOOD COUNT 24.5 K/mm3 (4.0-10.0)
[2023-03-16 14:34] LABS: PH,URINE 6.5 (5.0-8.0); URINE APPEARANCE CLEAR; URINE BILIRUBIN NEGATIVE (NEGATIVE); URINE COLOR YELLOW; URINE GLUCOSE (UA) NEGATIVE (NEGATIVE); URINE KETONE NEGATIVE (NEGATIVE); URINE LEUK ESTERASE NEGATIVE (NEGATIVE); URINE NITRITE NEGATIVE (NEGATIVE); URINE PROTEIN NEGATIVE (NEGATIVE)
[2023-03-16 14:43] LABS: POTASSIUM 5.5 mmol/L (3.5-5.1)
[2023-03-16 14:46] LABS: ALBUMIN 2.8 g/dl (3.4-5.0); BLOOD UREA NITROGEN 31.5 mg/dL (7-18)
[2023-03-16 14:49] LABS: CREATININE 0.7 mg/dL (0.55-1.3)
[2023-03-16 14:51] LABS: BILIRUBIN,TOTAL 0.4 mg/dL (0.2-1); TOT PROT 5.9 g/dl (6.4-8.2)
[2023-03-16 15:21] LABS: CALCIUM 8.1 mg/dL (8.5-10.1)
[2023-03-16 15:49] LABS: ANISOCYTOSIS 2+; MACROCYTOSIS 0; OVALOCYTE 2+
[2023-03-16] MEDS ORDERED: ALBUTEROL SO4 2.5/IPRATROPIUM 0.5 INH SOL 3 ML VIAL.NEB. NEB PRN (19:10)
[2023-03-16] MEDS ORDERED: BACITRACIN 0.9 GM PACKET ONE (22:03)
[2023-03-16] MEDS ORDERED: HEPARIN NA (PORCINE) 5,000 UNITS/ML 1ML VIAL ONE (22:03)
[2023-03-16] MEDS: HEPARIN NA (PORCINE) 5,000 UNITS/ML 1ML VIAL SQ SCH (22:29)
[2023-03-16] MEDS: BACITRACIN ZINC 15 GM TUBE TOPICAL OINTMENT TP SCH (22:29)
[2023-03-17] MEDS ORDERED: ACETAMINOPHEN 1000 MG/100 ML BAG IVPB ONE (04:23)
[2023-03-17] MEDS: HEPARIN NA (PORCINE) 5,000 UNITS/ML 1ML VIAL SQ SCH ×3 (05:57→22:32)
[2023-03-17] MEDS: methaDONE HCL 10 MG TABLET PO SCH (06:09)
[2023-03-17 08:07] LABS: HEMOGLOBIN 10.5 GM/dL (11.7-16.9); MCH 29.8 pg (25.7-33.7); MCHC 32.9 g/dl (32.0-35.9); MEAN CELL VOLUME 90.4 fl (80-96); MEAN PLT VOLUME 7.1 fl (7.5-11.1); PLATELET COUNT 277 10^3/uL (134-434); RBC 3.54 M/mm3 (4.00-5.60); RDW 17.6 % (11.9-15.9); WHITE BLOOD COUNT 16.2 K/mm3 (4.0-10.0)
[2023-03-17 08:26] LABS: POTASSIUM 4.3 mmol/L (3.5-5.1)
[2023-03-17 08:36] LABS: CALCIUM 8.2 mg/dL (8.5-10.1)
[2023-03-17 08:37] LABS: BLOOD UREA NITROGEN 27.9 mg/dL (7-18); MAGNESIUM 1.9 mg/dL (1.8-2.4)
[2023-03-17 08:39] LABS: PHOSPHOROUS 3.8 mg/dL (2.5-4.9)
[2023-03-17 08:40] LABS: CREATININE 0.6 mg/dL (0.55-1.3)
[2023-03-17 10:19] LABS: ANISOCYTOSIS 0; HELMET CELLS 0; HOWELL-JOLLY BODIES 0; MACROCYTOSIS 0; OVALOCYTE 0; ROULEAU 0; SICKELED CELLS 0; TARGET CELLS 0; TEAR DROP CELLS 0; TOXIC GRANULATION 0
[2023-03-17] MEDS: ASPIRIN 81 MG CHEWABLE TABLETS PO SCH (10:26)
[2023-03-17] MEDS: LACTOBACILLUS ACIDOPHILUS 1 TABLET PO SCH (10:26)
[2023-03-17] MEDS: BACITRACIN ZINC 15 GM TUBE TOPICAL OINTMENT TP SCH ×2 (10:26→22:34)
[2023-03-17] MEDS: predniSONE 20 MG TABLET (UD) PO SCH (10:26)
[2023-03-18] MEDS: HEPARIN NA (PORCINE) 5,000 UNITS/ML 1ML VIAL SQ SCH ×3 (06:10→21:42)
[2023-03-18] MEDS: methaDONE HCL 10 MG TABLET PO SCH (06:12)
[2023-03-18] MEDS: ASPIRIN 81 MG CHEWABLE TABLETS PO SCH (09:19)
[2023-03-18] MEDS: predniSONE 20 MG TABLET (UD) PO SCH (09:19)
[2023-03-18] MEDS: LACTOBACILLUS ACIDOPHILUS 1 TABLET PO SCH (09:19)
[2023-03-18] MEDS: BACITRACIN ZINC 15 GM TUBE TOPICAL OINTMENT TP SCH ×2 (09:19→21:42)
[2023-03-18] MEDS: AMINO ACIDS/PROTEIN HYDROLYS 30 ML LIQUID.PKT PO SCH (16:33)
[2023-03-19] MEDS: methaDONE HCL 10 MG TABLET PO SCH (05:30)
[2023-03-19] MEDS: HEPARIN NA (PORCINE) 5,000 UNITS/ML 1ML VIAL SQ SCH ×3 (05:30→21:55)
[2023-03-19] MEDS: ASPIRIN 81 MG CHEWABLE TABLETS PO SCH (09:01)
[2023-03-19] MEDS: BACITRACIN ZINC 15 GM TUBE TOPICAL OINTMENT TP SCH ×2 (09:01→21:50)
[2023-03-19] MEDS: predniSONE 20 MG TABLET (UD) PO SCH (09:01)
[2023-03-19] MEDS: AMINO ACIDS/PROTEIN HYDROLYS 30 ML LIQUID.PKT PO SCH ×2 (09:01→16:39)
[2023-03-19] MEDS: LACTOBACILLUS ACIDOPHILUS 1 TABLET PO SCH (09:01)
[2023-03-19] MEDS: MULTIVITAMINS (DAILY MVI) TABLET (FP) PO SCH (09:04)
[2023-03-19] MEDS: ASCORBIC ACID 250 MG TABLET (FP) PO SCH (09:04)
[2023-03-19] MEDS: ZINC SULFATE 220 MG CAPSULE (FP) PO SCH (09:04)
[2023-03-19] MEDS ORDERED: ALBUTEROL SO4 0.083% IH SOL 2.5 MG/3 ML VIAL.NEB. NEB PRN (11:19)
[2023-03-19] MEDS: FLUTICASONE/UMECLIDIN/VILANTER(100-62.5-25 TRELEGY ELLIPTA) INAHLER IH SCH (13:24)
[2023-03-20] MEDS: HEPARIN NA (PORCINE) 5,000 UNITS/ML 1ML VIAL SQ SCH ×3 (05:51→21:42)
[2023-03-20] MEDS: methaDONE HCL 10 MG TABLET PO SCH (05:51)
[2023-03-20] MEDS: LACTOBACILLUS ACIDOPHILUS 1 TABLET PO SCH (09:16)
[2023-03-20] MEDS: ASCORBIC ACID 250 MG TABLET (FP) PO SCH (09:16)
[2023-03-20] MEDS: MULTIVITAMINS (DAILY MVI) TABLET (FP) PO SCH (09:16)
[2023-03-20] MEDS: ASPIRIN 81 MG CHEWABLE TABLETS PO SCH (09:16)
[2023-03-20] MEDS: predniSONE 20 MG TABLET (UD) PO SCH (09:16)
[2023-03-20] MEDS: ZINC SULFATE 220 MG CAPSULE (FP) PO SCH (09:16)
[2023-03-20] MEDS: AMINO ACIDS/PROTEIN HYDROLYS 30 ML LIQUID.PKT PO SCH ×2 (09:17→16:38)
[2023-03-20] MEDS: FLUTICASONE/UMECLIDIN/VILANTER(100-62.5-25 TRELEGY ELLIPTA) INAHLER IH SCH (09:17)
[2023-03-20] MEDS: BACITRACIN ZINC 15 GM TUBE TOPICAL OINTMENT TP SCH ×2 (09:17→21:45)
[2023-03-20 13:20] LABS: HEMATOCRIT 31.3 % (35.4-49); HEMOGLOBIN 10.3 GM/dL (11.7-16.9); MCH 30.2 pg (25.7-33.7); MCHC 32.9 g/dl (32.0-35.9); MEAN CELL VOLUME 91.8 fl (80-96); MEAN PLT VOLUME 7.4 fl (7.5-11.1); PLATELET COUNT 274 10^3/uL (134-434); RBC 3.41 M/mm3 (4.00-5.60); RDW 17.5 % (11.9-15.9)
[2023-03-20 13:40] LABS: POTASSIUM 3.8 mmol/L (3.5-5.1)
[2023-03-20 13:41] LABS: BLOOD UREA NITROGEN 37.6 mg/dL (7-18); CALCIUM 8.7 mg/dL (8.5-10.1)
[2023-03-20 13:44] LABS: CREATININE 0.7 mg/dL (0.55-1.3)
[2023-03-20] MEDS: COLLAGENASE CLOSTRIDIUM HIST. 30 GRAMS TUBE TP SCH (18:21)
[2023-03-20] MEDS ORDERED: INSULIN (NOVOLOG) ASPART 100 UNITS/ML 10ML VIAL ONE (18:56)
[2023-03-21 05:23] VITALS: RESP 18
[2023-03-21] MEDS: HEPARIN NA (PORCINE) 5,000 UNITS/ML 1ML VIAL SQ SCH (05:23)
[2023-03-21] MEDS: methaDONE HCL 10 MG TABLET PO SCH (05:24)
[2023-03-21] MEDS: BACITRACIN ZINC 15 GM TUBE TOPICAL OINTMENT TP SCH (09:05)
[2023-03-21] MEDS: AMINO ACIDS/PROTEIN HYDROLYS 30 ML LIQUID.PKT PO SCH (09:05)
[2023-03-21] MEDS: LACTOBACILLUS ACIDOPHILUS 1 TABLET PO SCH (09:06)
[2023-03-21] MEDS: ASPIRIN 81 MG CHEWABLE TABLETS PO SCH (09:06)
[2023-03-21] MEDS: ZINC SULFATE 220 MG CAPSULE (FP) PO SCH (09:06)
[2023-03-21] MEDS: predniSONE 20 MG TABLET (UD) PO SCH (09:07)
[2023-03-21] MEDS: FLUTICASONE/UMECLIDIN/VILANTER(100-62.5-25 TRELEGY ELLIPTA) INAHLER IH SCH (09:08)
[2023-03-21] MEDS: ASCORBIC ACID 250 MG TABLET (FP) PO SCH (09:08)
[2023-03-21] MEDS: COLLAGENASE CLOSTRIDIUM HIST. 30 GRAMS TUBE TP SCH (09:09)
[2023-03-21] MEDS: MULTIVITAMINS (DAILY MVI) TABLET (FP) PO SCH (09:16)
[2023-03-21 11:09] VITALS: BP 140/69; PULSE 86; TEMP 98.1
== END 2023-03-21 14:06 | DRG 180 ==
LOC: JER 11:05 → JERBED 17:41 → J4W 03-17 03:34
PROVIDERS: ADMIT Internal Medicine; ATTEND Family Medicine
DX: D38.1 Neoplasm of uncertain behavior of trachea, bronchus and lung (principal); E43 Unspecified severe protein-calorie malnutrition; Z68.1 Body mass index [BMI] 19.9 or less, adult; J96.11 Chronic respiratory failure with hypoxia; J96.12 Chronic respiratory failure with hypercapnia; F11.20 Opioid dependence, uncomplicated; R64 Cachexia; D84.9 Immunodeficiency, unspecified; I24.8 Other forms of acute ischemic heart disease; J44.9 Chronic obstructive pulmonary disease, unspecified; B19.20 Unspecified viral hepatitis C without hepatic coma; R53.1 Weakness; I10 Essential (primary) hypertension; R62.7 Adult failure to thrive; D64.9 Anemia, unspecified; Z99.81 Dependence on supplemental oxygen; Z86.19 Personal history of other infectious and parasitic diseases
CPT/HCPCS: 0241U-QW; 36415; 71045-TC-FY; 71250-TC; 80048; 80053; 81003; 82550; 82607; 82728; 83540; 83550; 83615; 83735; 84100; 84443; 84484; 85025; 85027; 86704; 86803; 87040; 87070; 87086; 87205; 87340; 87389; 87517; 87522; 93005; 93010; 93306-TC; 97116-GP; 97162-GP; 99285-25; J1644

== ENCOUNTER 2023-08-07 10:03 | Inpatient (IN) | payer OTHER ==
[2023-08-07 10:46] VITALS: BMI 20.9
[2023-08-07] MEDS ORDERED: methylPREDNISolone NA SUCC 125 MG/2 ML VIAL IVPUSH ONE (12:04)
[2023-08-07] MEDS ORDERED: methylPREDNISolone NA SUCC 125 MG/2 ML VIAL ONE (12:12)
[2023-08-07] MEDS: ALBUTEROL SO4 2.5/IPRATROPIUM 0.5 INH SOL 3 ML VIAL.NEB. NEB SCH (12:44)
[2023-08-07 12:58] LABS: VENOUS BASE EXCESS 1.4 mmol/L (-2-2); VENOUS O2 SATURATION 96.2 % (70-80); VENOUS PCO2 52.3 mmHg (38-52); VENOUS PH 7.345 (7.310-7.410)
[2023-08-07 13:01] LABS: BASO % 0.1 % (0-2.0); HEMATOCRIT 29.7 % (35.4-49); HEMOGLOBIN 9.7 GM/dL (11.7-16.9); LYMPH % 17.7 % (8-40); MCHC 32.7 g/dl (32.0-35.9); MEAN CELL VOLUME 82.5 fl (80-96); MEAN PLT VOLUME 7.2 fl (7.5-11.1); MONO % 11.2 % (3.8-10.2); PLATELET COUNT 308 10^3/uL (134-434); RDW 16.2 % (11.9-15.9); WHITE BLOOD COUNT 16.4 K/mm3 (4.0-10.0)
[2023-08-07 13:02] LABS: INR 1.99 (0.83-1.09); PROTHROMBIN TIME (PATIENT) 22.9 SEC (9.7-13.0)
[2023-08-07 13:04] LABS: ACTIVATED PTT 35.9 SECONDS (25.2-36.5)
[2023-08-07 13:35] LABS: CALCIUM 9.3 mg/dL (8.5-10.1)
[2023-08-07 13:36] LABS: ALBUMIN 3.3 g/dl (3.4-5.0); BLOOD UREA NITROGEN 53.8 mg/dL (7-18); MAGNESIUM 2.4 mg/dL (1.8-2.4)
[2023-08-07 13:41] LABS: BILIRUBIN,TOTAL 0.5 mg/dL (0.2-1)
[2023-08-07 13:44] LABS: N-TERMINAL BNP 7386.9 pg/ml (5-450)
[2023-08-07] MEDS ORDERED: PIPERACILLIN/TAZOB 3.375 GM 3.375 GM in DEXTROSE 5%-WATER - 50 ML IVPB ONE (13:55)
[2023-08-07] MEDS ORDERED: VANCOMYCIN 1,000 MG in DEXTROSE 5%-WATER - 250 ML IVPB ONE (13:55)
[2023-08-07] MEDS ORDERED: PIPERACILLIN/TAZOB 3.375 GM 3.375 GM/50 ML BAG IVPB ONE (14:29)
[2023-08-07] MEDS ORDERED: VANCOMYCIN 1 GRAM (PRE-DOCKED) 1,000 MG/250 ML BAG IVPB ONE (15:02)
[2023-08-07] MEDS ORDERED: dilTIAZem HCL 50 MG/10 ML - 10 ML VIAL IVPUSH ONE ×2 (15:54→16:20)
[2023-08-07] MEDS ORDERED: dilTIAZem HCL 50 MG/10 ML - 10 ML VIAL ONE (15:59)
[2023-08-07] MEDS ORDERED: SODIUM CHLORIDE 0.9% 500 ML INFUS.BAG IV ONE (16:10)
[2023-08-07] MEDS ORDERED: dilTIAZem HCL 125 MG/25 ML - 25 ML VIAL ONE ×2 (16:24→16:25)
[2023-08-07] MEDS ORDERED: dilTIAZem HCL 30 MG TABLET PO ONE (17:37)
[2023-08-07] MEDS ORDERED: dilTIAZem HCL 30 MG TABLET ONE ×2 (17:58→22:57)
[2023-08-07] MEDS ORDERED: ALBUTEROL SO4 2.5/IPRATROPIUM 0.5 INH SOL 3 ML VIAL.NEB. NEB PRN (18:07)
[2023-08-07] MEDS ORDERED: HEPARIN NA (PORCINE) 5,000 UNITS/ML 1ML VIAL ONE (22:57)
[2023-08-07] MEDS: HEPARIN NA (PORCINE) 5,000 UNITS/ML 1ML VIAL SQ SCH (23:01)
[2023-08-07] MEDS: dilTIAZem HCL 30 MG TABLET PO SCH (23:02)
[2023-08-08] MEDS ORDERED: dilTIAZem HCL 50 MG/10 ML - 10 ML VIAL IVPUSH ONE ×2 (04:25→06:53)
[2023-08-08] MEDS ORDERED: LEVALBUTEROL HCL 0.63 MG/3 ML VIAL.NEB. IH ONE (04:34)
[2023-08-08] MEDS ORDERED: methylPREDNISolone NA SUCC 40 MG/1 ML VIAL IVPUSH ONE (05:15)
[2023-08-08] MEDS: dilTIAZem HCL 30 MG TABLET PO SCH (05:18)
[2023-08-08] MEDS ORDERED: PIPERACILLIN/TAZOB 2.25 GM 2.25 GM in DEXTROSE 5%-WATER - 50 ML IVPB SCH (06:00)
[2023-08-08] MEDS ORDERED: VANCOMYCIN 750 MG in DEXTROSE 5%-WATER - 150 ML IVPB SCH (06:00)
[2023-08-08] MEDS: PIPERACILLIN/TAZOB 3.375 GM 3.375 GM in DEXTROSE 5%-WATER - 50 ML IVPB SCH ×3 (06:46→17:13)
[2023-08-08 06:53] LABS: VENOUS BASE EXCESS 2.2 mmol/L (-2-2); VENOUS PH 7.361 (7.310-7.410)
[2023-08-08] MEDS ORDERED: VANCOMYCIN/WATER FOR INJ (PEG) 750 MG/150 ML BAG IVPB SCH (09:00)
[2023-08-08] MEDS: HEPARIN NA (PORCINE) 5,000 UNITS/ML 1ML VIAL SQ SCH ×2 (09:51→21:26)
[2023-08-08] MEDS: methaDONE HCL 10 MG TABLET PO SCH (10:42)
[2023-08-08] MEDS: methylPREDNISolone NA SUCC 40 MG/1 ML VIAL IVPUSH SCH ×2 (14:52→21:26)
[2023-08-09] MEDS: PIPERACILLIN/TAZOB 3.375 GM 3.375 GM in DEXTROSE 5%-WATER - 50 ML IVPB SCH ×3 (02:40→17:58)
[2023-08-09] MEDS ORDERED: PIPERACILLIN/TAZOB 3.375 GM 3.375 GM in DEXTROSE 5%-WATER - 50 ML IVPB SCH (03:00)
[2023-08-09] MEDS: methylPREDNISolone NA SUCC 40 MG/1 ML VIAL IVPUSH SCH ×3 (06:11→21:03)
[2023-08-09] MEDS: methaDONE HCL 10 MG TABLET PO SCH (06:12)
[2023-08-09] MEDS: HEPARIN NA (PORCINE) 5,000 UNITS/ML 1ML VIAL SQ SCH (10:01)
[2023-08-09] MEDS: RIVAROXABAN 20 MG TABLET PO SCH (12:16)
[2023-08-09] MEDS: LEVALBUTEROL HCL 0.31 MG/3 ML VIAL.NEB IH PRN (15:14)
[2023-08-10] MEDS: PIPERACILLIN/TAZOB 3.375 GM 3.375 GM in DEXTROSE 5%-WATER - 50 ML IVPB SCH ×3 (01:56→17:20)
[2023-08-10] MEDS: methylPREDNISolone NA SUCC 40 MG/1 ML VIAL IVPUSH SCH ×3 (06:29→23:15)
[2023-08-10] MEDS: methaDONE HCL 10 MG TABLET PO SCH (06:29)
[2023-08-10] MEDS ORDERED: INSULIN (NOVOLOG) ASPART 100 UNITS/ML 10ML VIAL ONE (09:56)
[2023-08-10] MEDS: RIVAROXABAN 20 MG TABLET PO SCH (17:19)
[2023-08-11] MEDS ORDERED: MELATONIN 5 MG TABLETS PO ONE (00:18)
[2023-08-11] MEDS: PIPERACILLIN/TAZOB 3.375 GM 3.375 GM in DEXTROSE 5%-WATER - 50 ML IVPB SCH ×3 (01:03→17:17)
[2023-08-11] MEDS: methaDONE HCL 10 MG TABLET PO SCH (05:46)
[2023-08-11] MEDS: methylPREDNISolone NA SUCC 40 MG/1 ML VIAL IVPUSH SCH ×3 (05:46→21:04)
[2023-08-11 07:56] LABS: BASO % 0.2 % (0-2.0); HEMATOCRIT 27.6 % (35.4-49); HEMATOCRIT 27.9 % (35.4-49); LYMPH % 22.3 % (8-40); MCH 26.4 pg (25.7-33.7); MCHC 32.4 g/dl (32.0-35.9); MEAN CELL VOLUME 81.3 fl (80-96); MEAN CELL VOLUME 81.7 fl (80-96); MEAN PLT VOLUME 7.1 fl (7.5-11.1); MEAN PLT VOLUME 7.3 fl (7.5-11.1); MONO % 7.1 % (3.8-10.2); NEUT % 70.4 % (42.8-82.8); PLATELET COUNT 268 10^3/uL (134-434); PLATELET COUNT 269 10^3/uL (134-434); RBC 3.41 M/mm3 (4.00-5.60); RDW 15.7 % (11.9-15.9); RDW 15.8 % (11.9-15.9); WHITE BLOOD COUNT 6.9 K/mm3 (4.0-10.0)
[2023-08-11 08:11] LABS: POTASSIUM 3.5 mmol/L (3.5-5.1)
[2023-08-11 08:18] LABS: CALCIUM 8.6 mg/dL (8.5-10.1)
[2023-08-11 08:19] LABS: ALBUMIN 2.7 g/dl (3.4-5.0); BLOOD UREA NITROGEN 51.1 mg/dL (7-18)
[2023-08-11 08:24] LABS: BILIRUBIN,TOTAL 0.6 mg/dL (0.2-1)
[2023-08-11] MEDS: RIVAROXABAN 20 MG TABLET PO SCH (17:17)
[2023-08-12] MEDS: PIPERACILLIN/TAZOB 3.375 GM 3.375 GM in DEXTROSE 5%-WATER - 50 ML IVPB SCH ×3 (03:45→17:44)
[2023-08-12] MEDS: methylPREDNISolone NA SUCC 40 MG/1 ML VIAL IVPUSH SCH ×3 (05:23→21:51)
[2023-08-12] MEDS: methaDONE HCL 10 MG TABLET PO SCH (05:23)
[2023-08-12 07:21] LABS: BASO % 0.2 % (0-2.0); HEMATOCRIT 29.4 % (35.4-49); HEMOGLOBIN 9.7 GM/dL (11.7-16.9); LYMPH % 20.6 % (8-40); MEAN CELL VOLUME 81.6 fl (80-96); MEAN PLT VOLUME 7.2 fl (7.5-11.1); MONO % 6.3 % (3.8-10.2); NEUT % 72.9 % (42.8-82.8); PLATELET COUNT 310 10^3/uL (134-434); RDW 15.6 % (11.9-15.9); WHITE BLOOD COUNT 9.6 K/mm3 (4.0-10.0)
[2023-08-12 07:40] LABS: POTASSIUM 3.7 mmol/L (3.5-5.1)
[2023-08-12 07:42] LABS: CALCIUM 8.6 mg/dL (8.5-10.1)
[2023-08-12 07:43] LABS: ALBUMIN 2.8 g/dl (3.4-5.0); BLOOD UREA NITROGEN 42.6 mg/dL (7-18)
[2023-08-12 07:46] LABS: CREATININE 0.8 mg/dL (0.55-1.3)
[2023-08-12 07:47] LABS: TOT PROT 6.2 g/dl (6.4-8.2)
[2023-08-12 07:48] LABS: BILIRUBIN,TOTAL 0.4 mg/dL (0.2-1)
[2023-08-12] MEDS: RIVAROXABAN 20 MG TABLET PO SCH (17:44)
[2023-08-13] MEDS: PIPERACILLIN/TAZOB 3.375 GM 3.375 GM in DEXTROSE 5%-WATER - 50 ML IVPB SCH ×3 (01:04→17:35)
[2023-08-13] MEDS: methylPREDNISolone NA SUCC 40 MG/1 ML VIAL IVPUSH SCH ×3 (05:07→21:08)
[2023-08-13] MEDS: methaDONE HCL 10 MG TABLET PO SCH (05:07)
[2023-08-13 07:22] LABS: BASO % 0.3 % (0-2.0); HEMATOCRIT 31.1 % (35.4-49); HEMOGLOBIN 10.3 GM/dL (11.7-16.9); LYMPH % 19.5 % (8-40); MCH 26.8 pg (25.7-33.7); MCHC 33.1 g/dl (32.0-35.9); MEAN CELL VOLUME 80.9 fl (80-96); MEAN PLT VOLUME 7.2 fl (7.5-11.1); MONO % 4.5 % (3.8-10.2); NEUT % 75.7 % (42.8-82.8); PLATELET COUNT 293 10^3/uL (134-434); RBC 3.84 M/mm3 (4.00-5.60); RDW 15.7 % (11.9-15.9)
[2023-08-13 07:24] LABS: POTASSIUM 3.8 mmol/L (3.5-5.1)
[2023-08-13 07:40] LABS: CALCIUM 8.6 mg/dL (8.5-10.1)
[2023-08-13 07:41] LABS: ALBUMIN 2.7 g/dl (3.4-5.0); BLOOD UREA NITROGEN 41.4 mg/dL (7-18)
[2023-08-13 07:43] LABS: CREATININE 0.8 mg/dL (0.55-1.3)
[2023-08-13 07:45] LABS: BILIRUBIN,TOTAL 0.4 mg/dL (0.2-1); TOT PROT 5.9 g/dl (6.4-8.2)
[2023-08-13] MEDS: RIVAROXABAN 20 MG TABLET PO SCH (17:35)
[2023-08-14] MEDS: PIPERACILLIN/TAZOB 3.375 GM 3.375 GM in DEXTROSE 5%-WATER - 50 ML IVPB SCH ×3 (02:19→17:10)
[2023-08-14] MEDS: methaDONE HCL 10 MG TABLET PO SCH (05:10)
[2023-08-14] MEDS: methylPREDNISolone NA SUCC 40 MG/1 ML VIAL IVPUSH SCH ×3 (05:10→21:03)
[2023-08-14] MEDS: LEVALBUTEROL HCL 0.31 MG/3 ML VIAL.NEB IH PRN (12:31)
[2023-08-14] MEDS: ASCORBIC ACID 500 MG TABLET (FP) PO SCH ×3 (17:10→21:04)
[2023-08-14] MEDS: RIVAROXABAN 20 MG TABLET PO SCH (17:10)
[2023-08-14] MEDS: MULTIVITAMINS (DAILY MVI) TABLET (FP) PO SCH (17:10)
[2023-08-14] MEDS ORDERED: ALPRAZolam 0.25 MG TABLET PO ONE (19:15)
[2023-08-15] MEDS: PIPERACILLIN/TAZOB 3.375 GM 3.375 GM in DEXTROSE 5%-WATER - 50 ML IVPB SCH ×2 (01:08→09:35)
[2023-08-15] MEDS: methaDONE HCL 10 MG TABLET PO SCH (05:27)
[2023-08-15] MEDS: methylPREDNISolone NA SUCC 40 MG/1 ML VIAL IVPUSH SCH ×3 (05:27→22:59)
[2023-08-15 07:27] LABS: BASO % 0.8 % (0-2.0); HEMATOCRIT 30.1 % (35.4-49); HEMOGLOBIN 9.6 GM/dL (11.7-16.9); LYMPH % 11.3 % (8-40); MCH 26.2 pg (25.7-33.7); MEAN CELL VOLUME 81.6 fl (80-96); MEAN PLT VOLUME 7.4 fl (7.5-11.1); MONO % 3.8 % (3.8-10.2); NEUT % 84.1 % (42.8-82.8); PLATELET COUNT 369 10^3/uL (134-434); RBC 3.69 M/mm3 (4.00-5.60); RDW 15.8 % (11.9-15.9); WHITE BLOOD COUNT 18.8 K/mm3 (4.0-10.0)
[2023-08-15 07:37] LABS: POTASSIUM 4.5 mmol/L (3.5-5.1)
[2023-08-15 07:47] LABS: ALBUMIN 2.7 g/dl (3.4-5.0); BLOOD UREA NITROGEN 42.5 mg/dL (7-18); CALCIUM 8.3 mg/dL (8.5-10.1)
[2023-08-15 07:50] LABS: CREATININE 0.9 mg/dL (0.55-1.3)
[2023-08-15 07:51] LABS: BILIRUBIN,TOTAL 0.4 mg/dL (0.2-1); TOT PROT 5.7 g/dl (6.4-8.2)
[2023-08-15] MEDS: ESCITALOPRAM OXALATE 10 MG TABLET PO SCH (09:35)
[2023-08-15] MEDS: MULTIVITAMINS (DAILY MVI) TABLET (FP) PO SCH (09:35)
[2023-08-15] MEDS: ASCORBIC ACID 500 MG TABLET (FP) PO SCH ×2 (09:35→22:59)
[2023-08-15] MEDS: RIVAROXABAN 20 MG TABLET PO SCH (18:20)
[2023-08-16] MEDS: methaDONE HCL 10 MG TABLET PO SCH (06:26)
[2023-08-16] MEDS: methylPREDNISolone NA SUCC 40 MG/1 ML VIAL IVPUSH SCH ×3 (06:26→21:52)
[2023-08-16] MEDS: ESCITALOPRAM OXALATE 10 MG TABLET PO SCH (10:15)
[2023-08-16] MEDS: MULTIVITAMINS (DAILY MVI) TABLET (FP) PO SCH (10:15)
[2023-08-16] MEDS: ASCORBIC ACID 500 MG TABLET (FP) PO SCH ×2 (10:16→21:52)
[2023-08-16] MEDS: RIVAROXABAN 20 MG TABLET PO SCH (17:41)
[2023-08-16] MEDS: ACETAMINOPHEN 325 MG TABLET (FP) PO PRN (21:57)
[2023-08-17] MEDS: methaDONE HCL 10 MG TABLET PO SCH (05:29)
[2023-08-17] MEDS: methylPREDNISolone NA SUCC 40 MG/1 ML VIAL IVPUSH SCH ×3 (05:30→21:24)
[2023-08-17] MEDS: ASCORBIC ACID 500 MG TABLET (FP) PO SCH ×2 (09:04→21:24)
[2023-08-17] MEDS: MULTIVITAMINS (DAILY MVI) TABLET (FP) PO SCH (09:04)
[2023-08-17] MEDS: ESCITALOPRAM OXALATE 10 MG TABLET PO SCH (09:04)
[2023-08-17] MEDS: RIVAROXABAN 20 MG TABLET PO SCH (17:26)
[2023-08-18] MEDS: methaDONE HCL 10 MG TABLET PO SCH (06:17)
[2023-08-18 07:09] LABS: HEMATOCRIT 27.1 % (35.4-49); HEMOGLOBIN 8.8 GM/dL (11.7-16.9); MCH 26.6 pg (25.7-33.7); MCHC 32.4 g/dl (32.0-35.9); MEAN PLT VOLUME 7.1 fl (7.5-11.1); PLATELET COUNT 310 10^3/uL (134-434); RDW 16.2 % (11.9-15.9); WHITE BLOOD COUNT 20.9 K/mm3 (4.0-10.0)
[2023-08-18 07:33] LABS: POTASSIUM 4.9 mmol/L (3.5-5.1)
[2023-08-18 07:47] LABS: BLOOD UREA NITROGEN 44.7 mg/dL (7-18); CALCIUM 8.3 mg/dL (8.5-10.1)
[2023-08-18 07:48] LABS: ALBUMIN 2.5 g/dl (3.4-5.0)
[2023-08-18 07:49] LABS: BILIRUBIN,TOTAL 0.3 mg/dL (0.2-1)
[2023-08-18 07:50] LABS: CREATININE 0.8 mg/dL (0.55-1.3)
[2023-08-18 07:52] LABS: TOT PROT 5.4 g/dl (6.4-8.2)
[2023-08-18 08:51] LABS: ANISOCYTOSIS 1+; MACROCYTOSIS 0; OVALOCYTE 2+
[2023-08-18 09:10] LABS: PLATELET ESTIMATE ADEQUATE
[2023-08-18] MEDS: MULTIVITAMINS (DAILY MVI) TABLET (FP) PO SCH (09:12)
[2023-08-18] MEDS: ASCORBIC ACID 500 MG TABLET (FP) PO SCH ×2 (09:12→21:22)
[2023-08-18] MEDS: ESCITALOPRAM OXALATE 10 MG TABLET PO SCH (09:12)
[2023-08-18] MEDS: methylPREDNISolone NA SUCC 40 MG/1 ML VIAL IVPUSH SCH ×2 (09:13→21:22)
[2023-08-18] MEDS: RIVAROXABAN 20 MG TABLET PO SCH (17:54)
[2023-08-19] MEDS: methaDONE HCL 10 MG TABLET PO SCH (06:18)
[2023-08-19 07:14] LABS: BASO % 0.2 % (0-2.0); HEMATOCRIT 28.6 % (35.4-49); HEMOGLOBIN 9.3 GM/dL (11.7-16.9); LYMPH % 9.4 % (8-40); MCH 27.1 pg (25.7-33.7); MCHC 32.6 g/dl (32.0-35.9); MEAN PLT VOLUME 7.5 fl (7.5-11.1); MONO % 3.2 % (3.8-10.2); NEUT % 87.2 % (42.8-82.8); PLATELET COUNT 340 10^3/uL (134-434); RBC 3.44 M/mm3 (4.00-5.60); RDW 16.2 % (11.9-15.9); WHITE BLOOD COUNT 25.1 K/mm3 (4.0-10.0)
[2023-08-19 07:28] LABS: POTASSIUM 4.7 mmol/L (3.5-5.1)
[2023-08-19 07:33] LABS: CALCIUM 8.5 mg/dL (8.5-10.1)
[2023-08-19 07:34] LABS: ALBUMIN 2.6 g/dl (3.4-5.0); BLOOD UREA NITROGEN 42.1 mg/dL (7-18)
[2023-08-19 07:35] LABS: CREATININE 0.8 mg/dL (0.55-1.3)
[2023-08-19 07:37] LABS: BILIRUBIN,TOTAL 0.4 mg/dL (0.2-1); TOT PROT 5.6 g/dl (6.4-8.2)
[2023-08-19] MEDS: AMINO ACIDS/PROTEIN HYDROLYS 30 ML LIQUID.PKT PO SCH ×2 (08:26→17:22)
[2023-08-19] MEDS: MULTIVITAMINS (DAILY MVI) TABLET (FP) PO SCH (09:06)
[2023-08-19] MEDS: ZINC SULFATE 220 MG CAPSULE (FP) PO SCH (09:06)
[2023-08-19] MEDS: ASCORBIC ACID 500 MG TABLET (FP) PO SCH ×2 (09:06→22:18)
[2023-08-19] MEDS: ESCITALOPRAM OXALATE 10 MG TABLET PO SCH (09:06)
[2023-08-19] MEDS: methylPREDNISolone NA SUCC 40 MG/1 ML VIAL IVPUSH SCH ×2 (09:06→22:19)
[2023-08-19 11:49] LABS: ANISOCYTOSIS 0; HELMET CELLS 0; HOWELL-JOLLY BODIES 0; MACROCYTOSIS 0; OVALOCYTE 0; ROULEAU 0; SICKELED CELLS 0; TARGET CELLS 0; TEAR DROP CELLS 0; TOXIC GRANULATION 0
[2023-08-19] MEDS: FLUTICASONE/UMECLIDIN/VILANTER(200-62.5-25 TRELEGY ELLIPTA) INAHLER IH SCH (12:58)
[2023-08-19] MEDS: ALBUTEROL SO4 0.083% IH SOL 2.5 MG/3 ML VIAL.NEB. NEB PRN ×2 (15:08→20:13)
[2023-08-19] MEDS: MEROPENEM 1 GM in DEXTROSE 5%-WATER 100 ML IVPB SCH (16:09)
[2023-08-19 16:41] LABS: PH,URINE 6.5 (5.0-8.0); URINE APPEARANCE CLEAR; URINE BILIRUBIN NEGATIVE (NEGATIVE); URINE COLOR YELLOW; URINE GLUCOSE (UA) NEGATIVE (NEGATIVE); URINE KETONE NEGATIVE (NEGATIVE); URINE LEUK ESTERASE NEGATIVE (NEGATIVE); URINE NITRITE NEGATIVE (NEGATIVE); URINE PROTEIN NEGATIVE (NEGATIVE); URINE UROBILINOGEN 0.2 mg/dL (0.2-1.0)
[2023-08-19] MEDS: RIVAROXABAN 20 MG TABLET PO SCH (17:22)
[2023-08-19] MEDS: ACETAMINOPHEN 325 MG TABLET (FP) PO PRN (22:18)
[2023-08-20] MEDS: MEROPENEM 1 GM in DEXTROSE 5%-WATER 100 ML IVPB SCH ×2 (01:14→13:27)
[2023-08-20] MEDS: methaDONE HCL 10 MG TABLET PO SCH (06:11)
[2023-08-20] MEDS: AMINO ACIDS/PROTEIN HYDROLYS 30 ML LIQUID.PKT PO SCH ×2 (08:18→17:27)
[2023-08-20] MEDS: ASCORBIC ACID 500 MG TABLET (FP) PO SCH ×3 (08:18→21:31)
[2023-08-20] MEDS: methylPREDNISolone NA SUCC 40 MG/1 ML VIAL IVPUSH SCH ×3 (08:18→21:31)
[2023-08-20] MEDS: MULTIVITAMINS (DAILY MVI) TABLET (FP) PO SCH ×2 (08:19→09:13)
[2023-08-20] MEDS: ZINC SULFATE 220 MG CAPSULE (FP) PO SCH ×2 (08:19→09:13)
[2023-08-20] MEDS: ESCITALOPRAM OXALATE 10 MG TABLET PO SCH ×2 (08:19→09:13)
[2023-08-20] MEDS: FLUTICASONE/UMECLIDIN/VILANTER(200-62.5-25 TRELEGY ELLIPTA) INAHLER IH SCH (10:34)
[2023-08-20] MEDS: RIVAROXABAN 20 MG TABLET PO SCH (17:27)
[2023-08-21] MEDS: MEROPENEM 1 GM in DEXTROSE 5%-WATER 100 ML IVPB SCH ×2 (01:04→13:12)
[2023-08-21] MEDS: methaDONE HCL 10 MG TABLET PO SCH (05:11)
[2023-08-21 07:47] LABS: BASO % 0.4 % (0-2.0); HEMATOCRIT 25.7 % (35.4-49); HEMOGLOBIN 8.1 GM/dL (11.7-16.9); LYMPH % 10.5 % (8-40); MCH 26.2 pg (25.7-33.7); MCHC 31.4 g/dl (32.0-35.9); MEAN CELL VOLUME 83.6 fl (80-96); MEAN PLT VOLUME 7.5 fl (7.5-11.1); MONO % 4.8 % (3.8-10.2); NEUT % 84.3 % (42.8-82.8); PLATELET COUNT 229 10^3/uL (134-434); RBC 3.08 M/mm3 (4.00-5.60); RDW 16.1 % (11.9-15.9); WHITE BLOOD COUNT 18.4 K/mm3 (4.0-10.0)
[2023-08-21 08:13] LABS: CALCIUM 7.5 mg/dL (8.5-10.1)
[2023-08-21 08:14] LABS: ALBUMIN 2.3 g/dl (3.4-5.0); BLOOD UREA NITROGEN 40.2 mg/dL (7-18)
[2023-08-21 08:17] LABS: CREATININE 0.7 mg/dL (0.55-1.3)
[2023-08-21 08:19] LABS: BILIRUBIN,TOTAL 0.3 mg/dL (0.2-1)
[2023-08-21] MEDS: AMINO ACIDS/PROTEIN HYDROLYS 30 ML LIQUID.PKT PO SCH ×2 (09:07→17:48)
[2023-08-21] MEDS: ZINC SULFATE 220 MG CAPSULE (FP) PO SCH (09:10)
[2023-08-21] MEDS: ASCORBIC ACID 500 MG TABLET (FP) PO SCH ×2 (09:11→21:03)
[2023-08-21] MEDS: ESCITALOPRAM OXALATE 10 MG TABLET PO SCH (09:13)
[2023-08-21] MEDS: methylPREDNISolone NA SUCC 40 MG/1 ML VIAL IVPUSH SCH ×2 (09:14→21:04)
[2023-08-21] MEDS: MULTIVITAMINS (DAILY MVI) TABLET (FP) PO SCH (09:14)
[2023-08-21] MEDS: FLUTICASONE/UMECLIDIN/VILANTER(200-62.5-25 TRELEGY ELLIPTA) INAHLER IH SCH (09:14)
[2023-08-21] MEDS: RIVAROXABAN 20 MG TABLET PO SCH (17:48)
[2023-08-21] MEDS: ALBUTEROL SO4 0.083% IH SOL 2.5 MG/3 ML VIAL.NEB. NEB PRN (19:35)
[2023-08-22] MEDS: MEROPENEM 1 GM in DEXTROSE 5%-WATER 100 ML IVPB SCH (01:09)
[2023-08-22 08:04] LABS: BASO % 0.8 % (0-2.0); HEMATOCRIT 25.5 % (35.4-49); HEMOGLOBIN 8.1 GM/dL (11.7-16.9); LYMPH % 11.1 % (8-40); MCH 26.6 pg (25.7-33.7); MCHC 31.8 g/dl (32.0-35.9); MEAN CELL VOLUME 83.7 fl (80-96); MEAN PLT VOLUME 7.6 fl (7.5-11.1); MONO % 3.6 % (3.8-10.2); NEUT % 84.5 % (42.8-82.8); PLATELET COUNT 184 10^3/uL (134-434); RBC 3.05 M/mm3 (4.00-5.60); RDW 16.4 % (11.9-15.9); WHITE BLOOD COUNT 17.6 K/mm3 (4.0-10.0)
[2023-08-22 08:21] LABS: POTASSIUM 3.9 mmol/L (3.5-5.1)
[2023-08-22 08:24] LABS: ALBUMIN 2.3 g/dl (3.4-5.0); BLOOD UREA NITROGEN 47.2 mg/dL (7-18)
[2023-08-22 08:27] LABS: CREATININE 0.6 mg/dL (0.55-1.3)
[2023-08-22 08:29] LABS: BILIRUBIN,TOTAL 0.3 mg/dL (0.2-1); TOT PROT 5.1 g/dl (6.4-8.2)
[2023-08-22] MEDS: FLUTICASONE/UMECLIDIN/VILANTER(200-62.5-25 TRELEGY ELLIPTA) INAHLER IH SCH (09:42)
[2023-08-22] MEDS: AMINO ACIDS/PROTEIN HYDROLYS 30 ML LIQUID.PKT PO SCH ×2 (09:42→17:03)
[2023-08-22] MEDS: methylPREDNISolone NA SUCC 40 MG/1 ML VIAL IVPUSH SCH ×2 (09:42→21:11)
[2023-08-22] MEDS: MULTIVITAMINS (DAILY MVI) TABLET (FP) PO SCH (09:42)
[2023-08-22] MEDS: ESCITALOPRAM OXALATE 10 MG TABLET PO SCH (09:42)
[2023-08-22] MEDS: ASCORBIC ACID 500 MG TABLET (FP) PO SCH ×2 (09:42→21:11)
[2023-08-22] MEDS: ZINC SULFATE 220 MG CAPSULE (FP) PO SCH (09:42)
[2023-08-22] MEDS: RIVAROXABAN 20 MG TABLET PO SCH (17:03)
[2023-08-22] MEDS ORDERED: methaDONE HCL 10 MG TABLET PO ONE (23:27)
[2023-08-23] MEDS: ESCITALOPRAM OXALATE 10 MG TABLET PO SCH (09:08)
[2023-08-23] MEDS: AMINO ACIDS/PROTEIN HYDROLYS 30 ML LIQUID.PKT PO SCH ×2 (09:08→17:29)
[2023-08-23] MEDS: MULTIVITAMINS (DAILY MVI) TABLET (FP) PO SCH (09:08)
[2023-08-23] MEDS: ASCORBIC ACID 500 MG TABLET (FP) PO SCH ×2 (09:08→21:10)
[2023-08-23] MEDS: methylPREDNISolone NA SUCC 40 MG/1 ML VIAL IVPUSH SCH ×2 (09:08→21:10)
[2023-08-23] MEDS: FLUTICASONE/UMECLIDIN/VILANTER(200-62.5-25 TRELEGY ELLIPTA) INAHLER IH SCH (09:09)
[2023-08-23] MEDS: RIVAROXABAN 20 MG TABLET PO SCH (17:29)
[2023-08-24 07:18] LABS: BASO % 0.2 % (0-2.0); HEMATOCRIT 22.2 % (35.4-49); HEMOGLOBIN 7.1 GM/dL (11.7-16.9); LYMPH % 10.2 % (8-40); MCHC 32.1 g/dl (32.0-35.9); MEAN PLT VOLUME 7.8 fl (7.5-11.1); MONO % 2.9 % (3.8-10.2); NEUT % 86.7 % (42.8-82.8); PLATELET COUNT 128 10^3/uL (134-434); RBC 2.64 M/mm3 (4.00-5.60); RDW 16.9 % (11.9-15.9); WHITE BLOOD COUNT 15.3 K/mm3 (4.0-10.0)
[2023-08-24 08:11] LABS: ALBUMIN 2.2 g/dl (3.4-5.0); BLOOD UREA NITROGEN 61.8 mg/dL (7-18); CALCIUM 8.3 mg/dL (8.5-10.1)
[2023-08-24 08:14] LABS: CREATININE 0.7 mg/dL (0.55-1.3)
[2023-08-24 08:16] LABS: BILIRUBIN,TOTAL 0.4 mg/dL (0.2-1); TOT PROT 4.9 g/dl (6.4-8.2)
[2023-08-24] MEDS: AMINO ACIDS/PROTEIN HYDROLYS 30 ML LIQUID.PKT PO SCH ×2 (10:57→17:11)
[2023-08-24] MEDS: MULTIVITAMINS (DAILY MVI) TABLET (FP) PO SCH (10:57)
[2023-08-24] MEDS: methylPREDNISolone NA SUCC 40 MG/1 ML VIAL IVPUSH SCH ×2 (10:57→22:16)
[2023-08-24] MEDS: ESCITALOPRAM OXALATE 10 MG TABLET PO SCH (10:57)
[2023-08-24] MEDS: ASCORBIC ACID 500 MG TABLET (FP) PO SCH ×2 (10:57→22:17)
[2023-08-24] MEDS: FLUTICASONE/UMECLIDIN/VILANTER(200-62.5-25 TRELEGY ELLIPTA) INAHLER IH SCH (11:10)
[2023-08-24] MEDS: methaDONE HCL 10 MG TABLET PO SCH (12:08)
[2023-08-24] MEDS: RIVAROXABAN 20 MG TABLET PO SCH (17:11)
[2023-08-24] MEDS ORDERED: ALBUTEROL SO4 HFA INHALER IH PRN (19:41)
[2023-08-24] MEDS: ACETAMINOPHEN 325 MG TABLET (FP) PO PRN (22:17)
[2023-08-25] MEDS: AMINO ACIDS/PROTEIN HYDROLYS 30 ML LIQUID.PKT PO SCH ×2 (07:53→17:06)
[2023-08-25] MEDS: MULTIVITAMINS (DAILY MVI) TABLET (FP) PO SCH (10:11)
[2023-08-25] MEDS: methylPREDNISolone NA SUCC 40 MG/1 ML VIAL IVPUSH SCH ×2 (10:11→21:39)
[2023-08-25] MEDS: ESCITALOPRAM OXALATE 10 MG TABLET PO SCH (10:11)
[2023-08-25] MEDS: ASCORBIC ACID 500 MG TABLET (FP) PO SCH ×2 (10:11→21:39)
[2023-08-25] MEDS: FLUTICASONE/UMECLIDIN/VILANTER(200-62.5-25 TRELEGY ELLIPTA) INAHLER IH SCH (10:20)
[2023-08-25] MEDS: methaDONE HCL 10 MG TABLET PO SCH (13:28)
[2023-08-25 14:30] LABS: BASO % 0.6 % (0-2.0); HEMATOCRIT 29.3 % (35.4-49); HEMOGLOBIN 9.7 GM/dL (11.7-16.9); LYMPH % 10.4 % (8-40); MCH 28.2 pg (25.7-33.7); MEAN CELL VOLUME 85.6 fl (80-96); MEAN PLT VOLUME 8.6 fl (7.5-11.1); MONO % 1.1 % (3.8-10.2); NEUT % 87.9 % (42.8-82.8); PLATELET COUNT 115 10^3/uL (134-434); RBC 3.42 M/mm3 (4.00-5.60); RDW 16.3 % (11.9-15.9); WHITE BLOOD COUNT 18.8 K/mm3 (4.0-10.0)
[2023-08-25 14:51] LABS: POTASSIUM 4.4 mmol/L (3.5-5.1)
[2023-08-25 14:56] LABS: CALCIUM 8.3 mg/dL (8.5-10.1)
[2023-08-25 14:57] LABS: ALBUMIN 2.2 g/dl (3.4-5.0); BLOOD UREA NITROGEN 63.2 mg/dL (7-18)
[2023-08-25 15:00] LABS: CREATININE 0.8 mg/dL (0.55-1.3)
[2023-08-25 15:01] LABS: BILIRUBIN,TOTAL 0.6 mg/dL (0.2-1); TOT PROT 5.2 g/dl (6.4-8.2)
[2023-08-25] MEDS: RIVAROXABAN 20 MG TABLET PO SCH (17:06)
[2023-08-26] MEDS: methaDONE HCL 10 MG TABLET PO SCH (05:47)
[2023-08-26] MEDS: AMINO ACIDS/PROTEIN HYDROLYS 30 ML LIQUID.PKT PO SCH ×2 (08:07→17:22)
[2023-08-26] MEDS: dilTIAZem HCL 50 MG/10 ML - 10 ML VIAL IVPUSH PRN (09:28)
[2023-08-26] MEDS: methylPREDNISolone NA SUCC 40 MG/1 ML VIAL IVPUSH SCH ×2 (10:57→21:24)
[2023-08-26] MEDS: ESCITALOPRAM OXALATE 10 MG TABLET PO SCH (10:57)
[2023-08-26] MEDS: ASCORBIC ACID 500 MG TABLET (FP) PO SCH ×2 (10:57→21:24)
[2023-08-26] MEDS: FLUTICASONE/UMECLIDIN/VILANTER(200-62.5-25 TRELEGY ELLIPTA) INAHLER IH SCH (10:57)
[2023-08-26] MEDS: MULTIVITAMINS (DAILY MVI) TABLET (FP) PO SCH (10:57)
[2023-08-26] MEDS: RIVAROXABAN 20 MG TABLET PO SCH (17:22)
[2023-08-27] MEDS: dilTIAZem HCL 50 MG/10 ML - 10 ML VIAL IVPUSH PRN (03:00)
[2023-08-27] MEDS: methaDONE HCL 10 MG TABLET PO SCH (06:58)
[2023-08-27 07:43] LABS: POTASSIUM 3.4 mmol/L (3.5-5.1)
[2023-08-27 07:49] LABS: BLOOD UREA NITROGEN 54.9 mg/dL (7-18); CALCIUM 8.2 mg/dL (8.5-10.1)
[2023-08-27 07:53] LABS: CREATININE 0.7 mg/dL (0.55-1.3)
[2023-08-27 07:54] LABS: BILIRUBIN,TOTAL 0.5 mg/dL (0.2-1); TOT PROT 4.7 g/dl (6.4-8.2)
[2023-08-27 07:55] LABS: BASO % 1.1 % (0-2.0); LYMPH % 13.9 % (8-40); MCHC 33.5 g/dl (32.0-35.9); MEAN CELL VOLUME 86.5 fl (80-96); MEAN PLT VOLUME 7.9 fl (7.5-11.1); MONO % 0.6 % (3.8-10.2); NEUT % 84.4 % (42.8-82.8); PLATELET COUNT 59 10^3/uL (134-434); RBC 3.12 M/mm3 (4.00-5.60); RDW 17.7 % (11.9-15.9); WHITE BLOOD COUNT 7.4 K/mm3 (4.0-10.0)
[2023-08-27] MEDS: AMINO ACIDS/PROTEIN HYDROLYS 30 ML LIQUID.PKT PO SCH ×2 (08:58→17:45)
[2023-08-27] MEDS: MULTIVITAMINS (DAILY MVI) TABLET (FP) PO SCH (09:46)
[2023-08-27] MEDS: ESCITALOPRAM OXALATE 10 MG TABLET PO SCH (09:47)
[2023-08-27] MEDS: ASCORBIC ACID 500 MG TABLET (FP) PO SCH ×2 (09:47→21:22)
[2023-08-27] MEDS: methylPREDNISolone NA SUCC 40 MG/1 ML VIAL IVPUSH SCH ×2 (09:47→21:22)
[2023-08-27] MEDS: FLUTICASONE/UMECLIDIN/VILANTER(200-62.5-25 TRELEGY ELLIPTA) INAHLER IH SCH (09:48)
[2023-08-27 11:32] LABS: PLATELET ESTIMATE MOD DECREASED
[2023-08-27] MEDS: dilTIAZem HCL 25 MG/5 ML - 5 ML VIAL IVPUSH PRN (12:07)
[2023-08-27] MEDS ORDERED: POTASSIUM CHLORIDE ORAL LIQUID 20 MEQ/15 ML PO ONE (15:15)
[2023-08-27] MEDS: RIVAROXABAN 20 MG TABLET PO SCH (17:45)
[2023-08-28] MEDS: methaDONE HCL 10 MG TABLET PO SCH (06:14)
[2023-08-28 08:02] LABS: BASO % 0.7 % (0-2.0); HEMATOCRIT 25.8 % (35.4-49); HEMOGLOBIN 8.5 GM/dL (11.7-16.9); LYMPH % 17.9 % (8-40); MCH 28.8 pg (25.7-33.7); MEAN CELL VOLUME 87.4 fl (80-96); MEAN PLT VOLUME 8.1 fl (7.5-11.1); MONO % 1.6 % (3.8-10.2); NEUT % 79.8 % (42.8-82.8); PLATELET COUNT 48 10^3/uL (134-434); RBC 2.94 M/mm3 (4.00-5.60); WHITE BLOOD COUNT 4.9 K/mm3 (4.0-10.0)
[2023-08-28 08:15] LABS: POTASSIUM 4.4 mmol/L (3.5-5.1)
[2023-08-28 08:17] LABS: ALBUMIN 1.8 g/dl (3.4-5.0); CALCIUM 8.6 mg/dL (8.5-10.1)
[2023-08-28 08:18] LABS: BLOOD UREA NITROGEN 73.8 mg/dL (7-18)
[2023-08-28 08:21] LABS: CREATININE 0.8 mg/dL (0.55-1.3)
[2023-08-28 08:22] LABS: BILIRUBIN,TOTAL 0.5 mg/dL (0.2-1); TOT PROT 4.7 g/dl (6.4-8.2)
[2023-08-28] MEDS: AMINO ACIDS/PROTEIN HYDROLYS 30 ML LIQUID.PKT PO SCH ×2 (09:22→18:35)
[2023-08-28] MEDS: methylPREDNISolone NA SUCC 40 MG/1 ML VIAL IVPUSH SCH ×2 (09:26→21:00)
[2023-08-28] MEDS: MULTIVITAMINS (DAILY MVI) TABLET (FP) PO SCH (09:26)
[2023-08-28] MEDS: ASCORBIC ACID 500 MG TABLET (FP) PO SCH ×2 (09:26→21:00)
[2023-08-28] MEDS: ESCITALOPRAM OXALATE 10 MG TABLET PO SCH (09:26)
[2023-08-28] MEDS: FLUTICASONE/UMECLIDIN/VILANTER(200-62.5-25 TRELEGY ELLIPTA) INAHLER IH SCH (09:26)
[2023-08-28] MEDS: dilTIAZem HCL 25 MG/5 ML - 5 ML VIAL IVPUSH PRN (11:31)
[2023-08-28] MEDS ORDERED: DEXTROSE 5%-WATER - 1,000 ML IV SCH (14:30)
[2023-08-28] MEDS: RIVAROXABAN 20 MG TABLET PO SCH (18:35)
[2023-08-29] MEDS: methaDONE HCL 10 MG TABLET PO SCH (05:00)
[2023-08-29 08:32] LABS: BASO % 0.9 % (0-2.0); EOS % 0.2 % (0-4.5); HEMATOCRIT 24.3 % (35.4-49); HEMOGLOBIN 7.8 GM/dL (11.7-16.9); LYMPH % 32.8 % (8-40); MCH 28.4 pg (25.7-33.7); MCHC 32.2 g/dl (32.0-35.9); MEAN CELL VOLUME 88.1 fl (80-96); MEAN PLT VOLUME 8.1 fl (7.5-11.1); MONO % 2.5 % (3.8-10.2); NEUT % 63.6 % (42.8-82.8); RBC 2.76 M/mm3 (4.00-5.60); RDW 18.5 % (11.9-15.9); WHITE BLOOD COUNT 3.2 K/mm3 (4.0-10.0)
[2023-08-29 08:48] LABS: PLATELET COUNT 31 10^3/uL (134-434)
[2023-08-29 08:51] LABS: POTASSIUM 3.7 mmol/L (3.5-5.1)
[2023-08-29 08:55] LABS: CALCIUM 8.2 mg/dL (8.5-10.1)
[2023-08-29 08:56] LABS: ALBUMIN 1.6 g/dl (3.4-5.0); BLOOD UREA NITROGEN 74.3 mg/dL (7-18)
[2023-08-29 08:59] LABS: CREATININE 0.8 mg/dL (0.55-1.3)
[2023-08-29 09:01] LABS: BILIRUBIN,TOTAL 0.3 mg/dL (0.2-1); TOT PROT 4.5 g/dl (6.4-8.2)
[2023-08-29] MEDS: AMINO ACIDS/PROTEIN HYDROLYS 30 ML LIQUID.PKT PO SCH ×2 (09:24→16:29)
[2023-08-29] MEDS: FLUTICASONE/UMECLIDIN/VILANTER(200-62.5-25 TRELEGY ELLIPTA) INAHLER IH SCH (09:25)
[2023-08-29] MEDS: MULTIVITAMINS (DAILY MVI) TABLET (FP) PO SCH (09:25)
[2023-08-29] MEDS: ESCITALOPRAM OXALATE 10 MG TABLET PO SCH (09:25)
[2023-08-29] MEDS: methylPREDNISolone NA SUCC 40 MG/1 ML VIAL IVPUSH SCH ×2 (09:25→21:29)
[2023-08-29] MEDS: ASCORBIC ACID 500 MG TABLET (FP) PO SCH ×2 (09:26→21:30)
[2023-08-29] MEDS ORDERED: DEXTROSE 5%-WATER - 1,000 ML IV SCH (12:45)
[2023-08-29 14:44] LABS: ARTERIAL BLD GAS O2 SATURATION 93.2 % (95-98); ARTERIAL BLOOD GAS BASE EXCESS 5.3 mmol/L (-2-2); ARTERIAL BLOOD GAS PO2 67.9 mmHg (80-100); ARTERIAL BLOOD GAS pH 7.396 (7.350-7.450)
[2023-08-29 14:45] LABS: VENT MODE ST; VENT RATE 16
[2023-08-29] MEDS ORDERED: FUROSEMIDE 40 MG/4 ML INJECTABLE VIAL IVPUSH ONE (14:57)
[2023-08-29 18:01] LABS: INR 1.07 (0.83-1.09); PROTHROMBIN TIME (PATIENT) 12.4 SEC (9.7-13.0)
[2023-08-29 18:04] LABS: ACTIVATED PTT 27.9 SECONDS (25.2-36.5)
[2023-08-29] MEDS: CHLORHEXIDINE GLUCONATE 4% CLEANSER FOR DECOLONIZATION TP SCH (21:29)
[2023-08-29] MEDS: MUPIROCIN 2% TOPICAL OINTMENT FOR DECOLONIZATION NS SCH (21:29)
[2023-08-29] MEDS: dilTIAZem HCL 25 MG/5 ML - 5 ML VIAL IVPUSH PRN (23:51)
[2023-08-30] MEDS ORDERED: dilTIAZem HCL 50 MG/10 ML - 10 ML VIAL IVPUSH ONE (00:51)
[2023-08-30] MEDS: methaDONE HCL 10 MG TABLET PO SCH (05:58)
[2023-08-30 06:16] LABS: ARTERIAL BLD GAS O2 SATURATION 94.5 % (95-98); ARTERIAL BLOOD GAS BASE EXCESS 4.5 mmol/L (-2-2); ARTERIAL BLOOD GAS PO2 73.6 mmHg (80-100); ARTERIAL BLOOD GAS pH 7.391 (7.350-7.450)
[2023-08-30 06:19] LABS: ALLENS TEST POSITIVE
[2023-08-30 06:20] LABS: VENT MODE S/T; VENT RATE 10
[2023-08-30 06:56] LABS: HEMOGLOBIN 8.3 GM/dL (11.7-16.9); MCH 28.2 pg (25.7-33.7); MEAN CELL VOLUME 88.1 fl (80-96); MEAN PLT VOLUME 8.4 fl (7.5-11.1); RBC 2.95 M/mm3 (4.00-5.60); RDW 18.8 % (11.9-15.9); WHITE BLOOD COUNT 4.1 K/mm3 (4.0-10.0)
[2023-08-30 07:10] LABS: PLATELET COUNT 27 10^3/uL (134-434)
[2023-08-30 07:13] LABS: POTASSIUM 4.7 mmol/L (3.5-5.1)
[2023-08-30 07:19] LABS: CALCIUM 7.9 mg/dL (8.5-10.1)
[2023-08-30 07:20] LABS: ALBUMIN 1.8 g/dl (3.4-5.0); BLOOD UREA NITROGEN 84.9 mg/dL (7-18); MAGNESIUM 2.2 mg/dL (1.8-2.4)
[2023-08-30 07:22] LABS: CREATININE 1.4 mg/dL (0.55-1.3)
[2023-08-30 07:23] LABS: PHOSPHOROUS 4.5 mg/dL (2.5-4.9)
[2023-08-30 07:24] LABS: BILIRUBIN,TOTAL 0.4 mg/dL (0.2-1); TOT PROT 4.7 g/dl (6.4-8.2)
[2023-08-30] MEDS ORDERED: SODIUM CHLORIDE 0.45% 1,000 ML IV SCH ×2 (07:45→10:21)
[2023-08-30] MEDS: dilTIAZem HCL 25 MG/5 ML - 5 ML VIAL IVPUSH PRN (07:53)
[2023-08-30] MEDS: methylPREDNISolone NA SUCC 40 MG/1 ML VIAL IVPUSH SCH ×2 (09:32→21:08)
[2023-08-30] MEDS: ESCITALOPRAM OXALATE 10 MG TABLET PO SCH (09:33)
[2023-08-30 09:56] LABS: ANISOCYTOSIS 0; HELMET CELLS 0; HOWELL-JOLLY BODIES 0; MACROCYTOSIS 0; OVALOCYTE 0; ROULEAU 0; SICKELED CELLS 0; TARGET CELLS 0; TEAR DROP CELLS 0; TOXIC GRANULATION 0
[2023-08-30] MEDS: FLUTICASONE/UMECLIDIN/VILANTER(200-62.5-25 TRELEGY ELLIPTA) INAHLER IH SCH (10:05)
[2023-08-30] MEDS: MUPIROCIN 2% TOPICAL OINTMENT FOR DECOLONIZATION NS SCH ×2 (10:05→21:08)
[2023-08-30] MEDS: IPRATROPIUM BR 0.02% 0.5 MG/2.5 ML VIAL.NEB. NEB SCH ×2 (11:11→14:45)
[2023-08-30] MEDS: LEVALBUTEROL HCL 0.31 MG/3 ML VIAL.NEB IH SCH ×2 (11:12→15:10)
[2023-08-30] MEDS ORDERED: AMINO ACIDS 4.25%/D5W 1,000 ML IV SCH (14:15)
[2023-08-30] MEDS: AMINO ACIDS/PROTEIN HYDROLYS 30 ML LIQUID.PKT PO SCH (19:04)
[2023-08-30] MEDS ORDERED: PANTOPRAZOLE SODIUM 40 MG VIAL IVPUSH SCH (19:45)
[2023-08-30] MEDS ORDERED: IPRATROPIUM BR 0.02% 0.5 MG/2.5 ML VIAL.NEB. NEB SCH (20:00)
[2023-08-30] MEDS ORDERED: LEVALBUTEROL HCL 0.31 MG/3 ML VIAL.NEB IH SCH (20:00)
[2023-08-30] MEDS: CHLORHEXIDINE GLUCONATE 4% CLEANSER FOR DECOLONIZATION TP SCH (21:08)
[2023-08-31] MEDS ORDERED: FUROSEMIDE 40 MG/4 ML INJECTABLE VIAL IVPUSH ONE (01:32)
[2023-08-31] MEDS ORDERED: LEVALBUTEROL HCL 0.31 MG/3 ML VIAL.NEB IH ONE (01:34)
[2023-08-31] MEDS ORDERED: ACETAMINOPHEN 325 MG TABLET (FP) PO PRN (01:41)
[2023-08-31] MEDS ORDERED: dilTIAZem HCL 25 MG/5 ML - 5 ML VIAL IVPUSH PRN (01:41)
[2023-08-31] MEDS ORDERED: ALBUTEROL SO4 HFA INHALER IH PRN (01:41)
[2023-08-31 03:34] VITALS: TEMP 98.6
[2023-08-31 04:26] VITALS: BP 58/40; PULSE 75; RESP 19
[2023-08-31] MEDS ORDERED: methaDONE HCL 10 MG TABLET PO SCH (06:00)
[2023-08-31] MEDS ORDERED: AMINO ACIDS/PROTEIN HYDROLYS 30 ML LIQUID.PKT PO SCH (08:00)
[2023-08-31] MEDS ORDERED: MULTIVITAMINS (DAILY MVI) TABLET (FP) PO SCH (10:00)
[2023-08-31] MEDS ORDERED: FLUTICASONE/UMECLIDIN/VILANTER(200-62.5-25 TRELEGY ELLIPTA) INAHLER IH SCH (10:00)
[2023-08-31] MEDS ORDERED: methylPREDNISolone NA SUCC 40 MG/1 ML VIAL IVPUSH SCH (10:00)
[2023-08-31] MEDS ORDERED: ASCORBIC ACID 500 MG TABLET (FP) PO SCH (10:00)
[2023-08-31] MEDS ORDERED: ESCITALOPRAM OXALATE 10 MG TABLET PO SCH (10:00)
== END 2023-08-31 05:25 | disposition expired | DRG 193 ==
LOC: JER 10:03 → JERBED 17:35 → J4W 23:36 → JICU 08-29 14:54
PROVIDERS: ADMIT Internal Medicine; ATTEND Internal Medicine
DX: J18.9 Pneumonia, unspecified organism (principal); J96.21 Acute and chronic respiratory failure with hypoxia; J96.22 Acute and chronic respiratory failure with hypercapnia; F11.20 Opioid dependence, uncomplicated; J44.0 Chronic obstructive pulmonary disease with (acute) lower respiratory infection; J44.1 Chronic obstructive pulmonary disease with (acute) exacerbation; N17.9 Acute kidney failure, unspecified; E87.0 Hyperosmolality and hypernatremia; E87.4 Mixed disorder of acid-base balance; I10 Essential (primary) hypertension; I48.0 Paroxysmal atrial fibrillation; Z99.81 Dependence on supplemental oxygen; Z79.01 Long term (current) use of anticoagulants; D64.9 Anemia, unspecified; R91.1 Solitary pulmonary nodule; F32.A Depression, unspecified; D69.6 Thrombocytopenia, unspecified; B18.2 Chronic viral hepatitis C; E87.6 Hypokalemia
CPT/HCPCS: 0241U-QW; 36415; 36430; 36600; 71045-TC-FY; 80053; 80061; 81003; 82607; 82746; 82803; 82962; 83010; 83036; 83605; 83615; 83735; 83880; 84100; 84443; 84484; 85025; 85027; 85610; 85730; 86850; 86900; 86901; 86922; 87040; 87086; 87517; 87522; 93005; 93010; 93306-TC; 94640; 94660; 97163-GP; 99285-25; J1644; P9038; P9058